=== PATIENT | female | born 1940 | race Caucasian/White ===

== ENCOUNTER 2017-07-03 12:19 | Inpatient (IN) | payer OTHER ==
--- NOTE | 2017-07-03 13:29 | PDOC ---
History of Present Illness - General Chief Complaint: Shortness of Breath Stated Complaint: CHEST PAIN, SOB (PCP SENT) Time Seen by Provider: 07/03/17 13:10 History Source: Patient Exam Limitations: No Limitations - History of Present Illness Initial Comments: This is a 76 YOF with h/o asthma, COPD (on albuterol/Qvar/Stiolto/Breo, admitted twice with last on 03/25/17, never to ICU, never intubated, last steroids 03/25/17 for 2 weeks, triggered by chemicals), CAD (MIx2 with CABG), AICD indwelling (interrogated 04/2017), AVR, mitral valve replacement ( mechanical, on coumadin with last INR 2.5), HTN, HLD, and anxiety who p/w 3 days worsening SOB,wheezing, and dyspnea on exertion similar to her prior asthma /COPD exacerbation in the setting of recent cough (with large amt phlegm) and URI symptoms. She has been using her albuterol inhaler 3x/day when normally she never uses it. She was seen by her PCP (Dr. Mary Prater) this morning and instructed to come to the ED. She denies any fever, chills, nausea, vomiting, chest pain, abdominal pain, leg swelling, orthopnea, or other symptoms. She denies h/o blood clots. She is seen by Pio Galvan and Minh Neely with very recent followup. Past History - Past Medical History Allergies/Adverse Reactions: Allergies Allergy/AdvReac Type Severity Reaction Status Date / Time No Known Allergies Allergy Verified 07/03/17 12:26 Home Medications: Ambulatory Orders Omeprazole [Prilosec (RX)] 20 mg PO DAILY 11/14/12 Losartan Potassium [Cozaar -] 25 mg PO DAILY #0 tablet 11/19/12 Mirtazapine [Remeron -] 15 mg PO HS #0 tablet 11/19/12 LORazepam [Ativan] 0.5 mg PO BID PRN 06/03/15 Venlafaxine HCl [Effexor -] 75 mg PO DAILY 06/03/15 Warfarin Na [Coumadin -] 1 mg PO DAILY 06/03/15 Atorvastatin Ca [Lipitor] 20 mg PO HS #30 tablet 08/18/15 Beclomethasone Dipropionate [Qvar] 8.7 gm IH DAILY 03/25/17 Furosemide 20 mg PO DAILY 03/25/17 Montelukast Na [Singulair -] 10 mg PO HS 03/25/17 Tiotropium Br/Olodaterol HCl [Stiolto Respimat Inhal [place]] 2.5 mcg IH DAILY Cefuroxime Axetil [Ceftin -] 500 mg PO BID #4 tablet 03/29/17 Prednisone See Taper PO DAILY #20 tablet 03/29/17 Asthma: No Cancer: No Cardiac Disorders: Yes (2 NE, TRIPPLE BYPASS, a fib, DOUBLE VALVE REPLACEMENT) CVA: No COPD: Yes CHF: Yes Dementia: No Diabetes: No GI Disorders: No Disorders: No HTN: Yes Hypercholesterolemia: Yes Liver Disease: No Psychiatric Problems: Yes (anxiety) Seizures: No Thyroid Disease: No - Surgical History Cardiac Surgery: Yes (bypass) - Suicide/Smoking/Psychosocial Hx Smoking Status: No Smoking History: Never smoked Have you smoked in the past 12 months: No Number of Cigarettes Smoked Daily: 0 Information on smoking cessation initiated: No Hx Alcohol Use: No Drug/Substance Use Hx: No Substance Use Type: None Hx Substance Use Treatment: No Review of Systems - Review of Systems Able to Perform ROS?: Yes Constitutional: No: Chills, Fever, Unexplained wgt Loss HEENTM: Yes: Nose Congestion. No: Throat Pain Respiratory: Yes: Cough, Shortness of Breath, Wheezing, Productive cough. No: Orthopnea, Stridor Cardiac (ROS): No: Chest Pain, Palpitations ABD/GI: No: Constipated, Diarrhea, Nausea, Vomiting : No: Burning, Dysuria Musculoskeletal: No: Back Pain, Neck Pain Integumentary: No: Bruising, Rash Neurological: No: Headache, Numbness, Tingling, Weakness, Dizziness Endocrine: No: Unexplained Weight Gain, Unexplained Weight Loss *Physical Exam - Vital Signs Last Vital Signs Temp Pulse Resp BP Pulse Ox 98.4 F 68 19 109/47 94 L 07/03/17 12:24 07/03/17 12:24 07/03/17 12:24 07/03/17 12:24 07/03/17 12:24 - Physical Exam General Appearance: Yes: Nourished, Appropriately Dressed, Mild Distress, Other (pleasant elderly female speaking in full sentences but stopping about every 3rd word to inhale, accompanied at bedside by son who aids in providing medical history) HEENT: positive: EOMI, Normal Voice, Hearing Grossly Normal. negative: Scleral Icterus (R), Scleral Icterus (L), Nasal Congestion Neck: positive: Trachea midline, Supple. negative: Tender, Rigid Respiratory/Chest: positive: Lungs Clear, Normal Breath Sounds, Rapid RR, Rhonchi, Wheezing, Other (AICD in place LUCW with well-healed scar). negative: Crackles, Stridor Cardiovascular: positive: Regular Rhythm, Regular Rate, S1, S2, Systolic Murmur. negative: Edema, JVD Gastrointestinal/Abdominal: positive: Normal Bowel Sounds, Soft. negative: Tender, Organomegaly, Pulsatile Mass, Guarding Musculoskeletal: positive: Normal Inspection. negative: Decreased Range of Motion, Vertebral Tenderness Extremity: positive: Normal Capillary Refill, Normal Inspection, Normal Range of Motion. negative: Tender, Cyanosis Integumentary: positive: Normal Color, Dry, Warm. negative: Erythema, Rash, Bruising Neurologic: positive: gas treater II-XII NML intact, Fully Oriented, Alert, Normal Mood/ Affect, Normal Response, Motor Strength 5/5 ED Treatment Course - LABORATORY CBC & Chemistry Diagram: 07/03/17 14:35 07/03/17 14:35 Medical Decision Making - Medical Decision Making 76 YOF with h/o COPD and asthma who p/w SOB and wheezing in setting of recent URI. Sent by PCP for evaluation and tx. On exam PO2 is 94% on RA, tachypneic, diffuse wheezes, crackles L>R, no edema. Ordered is CBCD CMP Mg Cardiac panel BNP Coags UA Cx CXR EKG. 07/03/17 15:52 CXR results with congestive changes and LLL opacity. Ceftriaxone and Azithromycin ordered s/p blood cultures. Microblog sent to [facility] for admission (Mary Prater admits to hospitalist). *DC/Admit/Observation/Transfer Diagnosis at time of Disposition: COPD exacerbation Pneumonia Qualifiers: Pneumonia type: due to unspecified organism Laterality: left Lung location: unspecified part of lung Qualified Code(s): J18.9 - Pneumonia, unspecified organism Asthma exacerbation Qualifiers: Asthma severity: unspecified severity Asthma persistence: unspecified Qualified Code(s): J45.901 - Unspecified asthma with (acute) exacerbation - Discharge Dispostion Condition at time of disposition: Guarded Admit: Yes - Referrals - Patient Instructions - Post Discharge Activity
[2017-07-03] MEDS ORDERED: methylPREDNISolone NA SUCC 125 MG/2 ML VIAL IVPB ONE (13:39)
[2017-07-03] MEDS ORDERED: ALBUTEROL SO4 2.5/IPRATROPIUM 0.5 INH SOL 3 ML VIAL.NEB. NEB ONE ×3 (13:39→14:36)
[2017-07-03] MEDS ORDERED: methylPREDNISolone NA SUCC 125 MG/2 ML VIAL ONE (14:18)
[2017-07-03 14:44] LABS: VENOUS PC02 60.1 mmHg (38-52); VENOUS PH 7.34 (7.32-7.42); VENOUS PO2 23.9 mmHg (28-48)
[2017-07-03 14:52] LABS: BASO % 0.7 % (0-2.0); EOS % 2.8 % (0-4.5); HEMATOCRIT 35.5 % (32.4-45.2); LYMPH % 12.5 % (8-40); MCH 24.7 pg (25.7-33.7); MCHC 31.1 g/dl (32.0-36.0); MEAN CELL VOLUME 79.4 fl (80-96); MEAN PLT VOLUME 7.8 fl (7.5-11.1); MONO % 9.2 % (3.8-10.2); NEUT % 74.8 % (42.8-82.8); PLATELET COUNT 279 K/MM3 (134-434); RBC 4.47 M/mm3 (3.60-5.2); RDW 18.2 % (11.6-15.6); WHITE BLOOD COUNT 11.9 K/mm3 (4.0-10.0)
[2017-07-03 15:08] LABS: INR 2.97 (0.82-1.09); PROTHROMBIN TIME (PATIENT) 33.6 SEC (9.98-11.88)
[2017-07-03 15:13] LABS: ALBUMIN 3.5 g/dl (3.4-5.0); ANION GAP 5 (8-16); BLOOD UREA NITROGEN 15 mg/dL (7-18); CALCIUM 8.2 mg/dL (8.5-10.1); CHLORIDE 103 mmol/L (98-107); CO2 32 mmol/L (21-32); CREATININE 0.7 mg/dL (0.55-1.02); GLUCOSE,RANDOM 93 mg/dL (74-106); SGPT/ALT 20 U/L (12-78); SODIUM 140 mmol/L (136-145)
[2017-07-03 15:14] LABS: ALK PHOS 82 U/L (45-117); TOT PROT 6.8 g/dl (6.4-8.2)
[2017-07-03 15:24] LABS: SGOT/AST 25 U/L (15-37)
[2017-07-03] MEDS ORDERED: AZITHROMYCIN IVPB 500 MG in DEXTROSE 5%-WATER - 250 ML IVPB ONE (15:28)
--- NOTE | 2017-07-03 15:46 | EKG ---
Test Reason : Blood Pressure : / mmHG Vent. Rate : 067 BPM Atrial Rate : 067 BPM P-R Int : 152 ms QRS Dur : 082 ms QT Int : 410 ms P-R-T Axes : 046 034 065 degrees QTc Int : 433 ms NORMAL SINUS RHYTHM CANNOT RULE OUT INFERIOR INFARCT , AGE UNDETERMINED ANTERIOR INFARCT , AGE UNDETERMINED ABNORMAL ECG WHEN COMPARED WITH ECG OF 25-MAR-2017 10:55, VENT. RATE HAS DECREASED BY 51 BPM QUESTIONABLE CHANGE IN QRS DURATION ANTERIOR INFARCT IS NOW PRESENT MINIMAL CRITERIA FOR INFERIOR INFARCT ARE NOW PRESENT Confirmed by STEVEN DEL TORO, TAYLA ([id number]) on 07/03/2017 3:46:35 PM Referred By: Confirmed By:TAYLA HARRIS MD
--- NOTE | 2017-07-03 16:25 | PDOC ---
Attending Attestation - Resident Resident Name: Dilma Tello - ED Attending Attestation I have performed the following: I have examined & evaluated the patient, The case was reviewed & discussed with the resident, I agree w/resident's findings & plan, Exceptions are as noted - HPI HPI: 07/03/17 16:23 The patient is a 76 y.o. female with a significant past medical history of CHF ( BNP 589 in 04/2016), COPD (not on home O2, albuterol/breo,Qvar,stiolto inhalants ), HTN, CAD, [place] (s/p bypass, mitral and aortic valve replacement x2 and multiple stents), taking coumadin (INR 2.5 within 1 week of today, who presents to the emergency department with complaint of shortness of breath worse with exertion, wheezing, and productive cough for about 3 days. She has been using her albuterol 3 times a day and states she does not use her albuterol on a regular day. The patient denies chest pain, headache and dizziness. The patient denies fever, chills, nausea, vomit, diarrhea and constipation. The patient denies dysuria, frequency, urgency and hematuria. Allergies: NKDA Surgical: CABG, valve replacement; stent placement Social: denies cigarettes (significant smoke exposure in the home), denies alcohol, denies recreational drugs PMD: Dr. Viri Prater Pulm: Dr. Neely " - Physicial Exam PE: 07/03/17 16:23 """GENERAL: Awake, alert, and fully oriented, in no acute distress HEAD: No signs of trauma EYES: PERRLA, EOMI, sclera anicteric, conjunctiva clear ENT: Auricles normal inspection, hearing grossly normal, nares patent, oropharynx clear without exudates. Moist mucosa NECK: Nontender, no stepoffs, Normal ROM, supple, no lymphadenopathy, JVD, or masses LUNGS: (+) mild conversational dyspnea, crackles and wheezing bilaterally with increased crackles on the right. Breath sounds equal, HEART: Regular rate and rhythm, normal S1 and S2, no rubs or gallops ABDOMEN: Soft, nontender, normoactive bowel sounds. No guarding, no rebound. No masses EXTREMITIES: Normal range of motion, no edema. No clubbing or cyanosis. No cords, erythema, or tenderness NEUROLOGICAL: Cranial nerves II through XII intact. 5/5 strength and sensation in all extremities, Normal speech, normal gait SKIN: Warm, Dry, normal turgor, no rashes or lesions noted. """ - Medical Decision Making 07/03/17 16:24 76 F with SOB, found to be mildly hypoxic in ER with wheezing and rhonchi on exam. Concerning for COPD exacerbation, possibly 2/2 PNA or URI. - Labs, trop, BNP - CXR - Nebs, steroids - Ceftriaxone/azithro for CAP coverage
[2017-07-03] MEDS ORDERED: LABETALOL HCL 200 MG TABLET (FP) PO ONE (16:35)
[2017-07-03] MEDS ORDERED: LABETALOL HCL 5 MG/1 ML (100MG/20 ML VIAL) IVPUSH ONE (16:36)
[2017-07-03] MEDS ORDERED: AZITHROMYCIN IVPB 250 ML IVPB ONE (16:47)
[2017-07-03] MEDS ORDERED: CEFTRIAXONE 1 GM/50 ML BAG ONE (16:47)
[2017-07-03] MEDS: CEFTRIAXONE 1 GM in DEXTROSE 5%-WATER - 50 ML IVPB ONE ×2 (16:55→17:27)
--- NOTE | 2017-07-03 17:32 | HP ---
Admitting History and Physical - Primary Care Physician PCP: Mary Prater - Admission Chief Complaint: SOB, wheezing History of Present Illness: This is an 76 year old female with a PMHx of COPD/Asthma, HTN, RI s/p triple bypass/double valve placement/stents, CHF, HLD, sent in by her PCP Dr. Prater for worsening sob and wheezing. Pt states her shortness of breath worsened of the last 2 days with increased mucus production. She denies cough, chest pain, abdominal pain, nausea, vomiting fever. She has been intubated in the past for COPD exacerbations per her son. History Source: Patient, Medical Record Limitations to Obtaining History: No Limitations - Past Medical History Cardiovascular: Yes: AFIB, CAD (CABG), CHF, HTN, Hyperlipdemia, RI, Other (MVR, TVR, LV systolic dysfunction, ICD) Pulmonary: Yes: COPD - Past Surgical History Past Surgical History: Yes: AICD, CABG, Valve Replacement (aortic/mitral) - Smoking History Smoking history: Never smoked Have you smoked in the past 12 months: No Aproximately how many cigarettes per day: 0 - Alcohol/Substance Use Hx Alcohol Use: No - Social History Usual Living Arrangement: Yes: With Child ADL: Independent History of Recent Travel: No Home Medications - Allergies Allergies/Adverse Reactions: Allergies Allergy/AdvReac Type Severity Reaction Status Date / Time No Known Allergies Allergy Verified 07/03/17 12:26 - Home Medications Home Medications: Ambulatory Orders Omeprazole [Prilosec (RX)] 20 mg PO DAILY 11/14/12 Losartan Potassium [Cozaar -] 25 mg PO DAILY #0 tablet 11/19/12 Mirtazapine [Remeron -] 15 mg PO HS #0 tablet 11/19/12 LORazepam [Ativan] 0.5 mg PO BID PRN 06/03/15 Venlafaxine HCl [Effexor -] 75 mg PO DAILY 06/03/15 Warfarin Na [Coumadin -] 1 mg PO DAILY 06/03/15 Atorvastatin Ca [Lipitor] 20 mg PO HS #30 tablet 08/18/15 Beclomethasone Dipropionate [Qvar] 8.7 gm IH DAILY 03/25/17 Furosemide 20 mg PO DAILY 03/25/17 Montelukast Na [Singulair -] 10 mg PO HS 03/25/17 Tiotropium Br/Olodaterol HCl [Stiolto Respimat Inhal [place]] 2.5 mcg IH DAILY Cefuroxime Axetil [Ceftin -] 500 mg PO BID #4 tablet 03/29/17 Prednisone See Taper PO DAILY #20 tablet 03/29/17 Review of Systems - Review of Systems Constitutional: reports: No Symptoms Eyes: reports: No Symptoms HENT: reports: No Symptoms Neck: reports: No Symptoms Cardiovascular: reports: Shortness of Breath Respiratory: reports: SOB, SOB on Exertion, Wheezing Gastrointestinal: reports: No Symptoms Genitourinary: reports: No Symptoms Musculoskeletal: reports: No Symptoms Integumentary: reports: No Symptoms Neurological: reports: No Symptoms Endocrine: reports: No Symptoms Hematology/Lymphatic: reports: No Symptoms Psychiatric: reports: No Symptoms Physical Examination Vital Signs: Vital Signs Temperature 98.4 F 07/03/17 12:24 Pulse Rate 68 07/03/17 12:24 Respiratory Rate 19 07/03/17 12:24 Blood Pressure 109/47 07/03/17 12:24 O2 Sat by Pulse Oximetry (%) 94 L 07/03/17 12:24 Constitutional: Yes: Calm Eyes: Yes: Conjunctiva Clear HENT: Yes: Atraumatic Neck: Yes: Supple Cardiovascular: Yes: Regular Rate and Rhythm, Murmur, S1, S2 Respiratory: Yes: Accessory Muscle Use, Diminished, Rhonchi, Wheezes Gastrointestinal: Yes: Normal Bowel Sounds, Soft Renal/: Yes: WNL Musculoskeletal: Yes: WNL Extremities: Yes: WNL Edema: Yes Integumentary: Yes: WNL Neurological: Yes: Alert, Oriented, Cran Nerves II-XII Intact Psychiatric: Yes: Alert, Oriented Labs: CBC, BMP 07/03/17 14:35 07/03/17 14:35 Imaging - Results Chest X-ray: Report Reviewed (L base ? consolidation) EKG: Report Reviewed (sinus rhythm, anterior infarct now present) Problem List - Problems (1) Asthma exacerbation Code(s): J45.901 - UNSPECIFIED ASTHMA WITH (ACUTE) EXACERBATION Qualifiers: Asthma severity: unspecified severity Asthma persistence: unspecified Qualified Code(s): J45.901 - Unspecified asthma with (acute) exacerbation (2) COPD exacerbation Code(s): J44.1 - CHRONIC OBSTRUCTIVE PULMONARY DISEASE W (ACUTE) EXACERBATION (3) Pneumonia Code(s): J18.9 - PNEUMONIA, UNSPECIFIED ORGANISM Qualifiers: Pneumonia type: due to unspecified organism Laterality: left Lung location: unspecified part of lung Qualified Code(s): J18.9 - Pneumonia, unspecified organism (4) Acute respiratory distress Code(s): R06.03 - ACUTE RESPIRATORY DISTRESS (5) History of CHF (congestive heart failure) Code(s): Z86.79 - PERSONAL HISTORY OF OTHER DISEASES OF THE CIRCULATORY SYSTEM (6) History of RI (myocardial infarction) Code(s): I25.2 - OLD MYOCARDIAL INFARCTION (7) History of hypercholesterolemia Code(s): Z86.39 - PERSONAL HISTORY OF ENDO, NUTRITIONAL AND METABOLIC DISEASE (8) History of hypertension Code(s): Z86.79 - PERSONAL HISTORY OF OTHER DISEASES OF THE CIRCULATORY SYSTEM (9) S/P CABG (coronary artery bypass graft) Code(s): Z95.1 - PRESENCE OF AORTOCORONARY BYPASS GRAFT (10) S/P MVR (mitral valve repair) Code(s): Z98.89 - OTHER SPECIFIED POSTPROCEDURAL STATES * DO NOT USE * (11) S/P TVR (tricuspid valve repair) Code(s): Z98.89 - OTHER SPECIFIED POSTPROCEDURAL STATES * DO NOT USE * (12) Single implantable cardioverter-defibrillator (ICD) in situ Code(s): Z95.810 - PRESENCE OF AUTOMATIC (IMPLANTABLE) CARDIAC DEFIBRILLATOR (13) Systolic dysfunction without heart failure Code(s): I51.9 - HEART DISEASE, UNSPECIFIED Assessment/Plan Assessment: 76 year old female admitted with COPD exacerbation Plan: 1. Acute on chronic COPD exacerbation, +/- LLL PNA - Continue medrol 40mg q8 - Duonebs - Continue ceftriaxone, azithro - Singular - Qvar - Pulmonary consulted 2. LV systolic dysfunction with history of CHF - Cozaar 25mg daily - Lasix 20mg daily 3. CAD s/p RI s/p CABG, ICD s/p VF arrest - Cardiology consulted EKG ?new anterior infarct - Initial Trop negative, denies cP 4. PAF - Coumadin 1mg - INR daily 5. HTN - Cozaar 6. HLD - Lipitor 7. DVT - on AC Visit type - Emergency Visit Emergency Visit: Yes Care time: The patient presented to the Emergency Department on the above date and was hospitalized for further evaluation of their emergent condition. - New Patient This patient is new to me today: Yes Date on this admission: 07/03/17 - Critical Care Critical Care patient: No
[2017-07-03] MEDS ORDERED: LORazepam 1 MG TABLET PO PRN (17:46)
[2017-07-03] MEDS ORDERED: ACETAMINOPHEN 325 MG TABLET (FP) PO PRN (17:47)
[2017-07-03] MEDS ORDERED: CEFTRIAXONE 1 G/50 ML PREMIX 50 ML IVPB ONE (18:15)
--- NOTE | 2017-07-03 18:45 | PN ---
Progress Note (short form) - Note Progress Note: PULMONARY CONSULTATION DICTATED IMP ACUTE HYPERCAPNEIC RESPIRATORY FAILURE COPD/ASTHMA EXACERBATION PNEUMONIA ASHD S/P CABG S/P AICD S/P AVR/MR AFIB PLAN INHALED BRONCHODILATORS O2 SOLUMEDROL ABX F/U CHEST X-RAY CULTURES DR HUGGINS Problem List - Problems (1) Asthma exacerbation Code(s): J45.901 - UNSPECIFIED ASTHMA WITH (ACUTE) EXACERBATION Qualifiers: Asthma severity: unspecified severity Asthma persistence: unspecified Qualified Code(s): J45.901 - Unspecified asthma with (acute) exacerbation (2) COPD exacerbation Code(s): J44.1 - CHRONIC OBSTRUCTIVE PULMONARY DISEASE W (ACUTE) EXACERBATION (3) Pneumonia Code(s): J18.9 - PNEUMONIA, UNSPECIFIED ORGANISM Qualifiers: Pneumonia type: due to unspecified organism Laterality: left Lung location: unspecified part of lung Qualified Code(s): J18.9 - Pneumonia, unspecified organism (4) Acute respiratory distress Code(s): R06.03 - ACUTE RESPIRATORY DISTRESS (5) History of CHF (congestive heart failure) Code(s): Z86.79 - PERSONAL HISTORY OF OTHER DISEASES OF THE CIRCULATORY SYSTEM (6) History of [place] (myocardial infarction) Code(s): I25.2 - OLD MYOCARDIAL INFARCTION (7) History of coronary artery disease Code(s): Z86.79 - PERSONAL HISTORY OF OTHER DISEASES OF THE CIRCULATORY SYSTEM (8) History of hypertension Code(s): Z86.79 - PERSONAL HISTORY OF OTHER DISEASES OF THE CIRCULATORY SYSTEM (9) S/P CABG (coronary artery bypass graft) Code(s): Z95.1 - PRESENCE OF AORTOCORONARY BYPASS GRAFT (10) S/P MVR (mitral valve repair) Code(s): Z98.89 - OTHER SPECIFIED POSTPROCEDURAL STATES * DO NOT USE * (11) Single implantable cardioverter-defibrillator (ICD) in situ Code(s): Z95.810 - PRESENCE OF AUTOMATIC (IMPLANTABLE) CARDIAC DEFIBRILLATOR (12) Acute hypercapnic respiratory failure Code(s): J96.02 - ACUTE RESPIRATORY FAILURE WITH HYPERCAPNIA
--- NOTE | 2017-07-03 21:43 | CONS ---
DATE OF CONSULTATION: 07/03/2017 REFERRING PHYSICIAN: Lucero Hammer NP The patient is a 76-year-old white female well-known to me from previous hospitalization and follow up with a past medical history of COPD/asthma, nonsmoker, hypertension, ASHD status post coronary bypass, status post double valve replacement, status post cardiac arrest intraoperatively, congestive heart failure, hyperlipidemia. Admitted to [facility] with complaints of increasing shortness of breath. The patient states that she had URI symptoms about a week ago and started developing a sore throat, shortness of breath, and wheezing. She took her inhalers without any improvement. She denies any fevers, chills, nausea, vomiting, or diaphoresis. Denies hemoptysis. The patient's symptoms worsened today, at which time she presented to the emergency room. In the ER, she was treated with inhaled bronchodilators and steroids with good clinical response. As stated before, she is a nonsmoker. There is no history of occupational exposure to chemicals or fumes. She has been intubated in the past secondary cardiac arrest during open heart surgery. PAST MEDICAL HISTORY: Atrial fibrillation, ASHD status post CABG, status post valve replacement, hypertension, CHF, hyperlipidemia, [place], asthma, COPD, status post ICD. REVIEW OF SYSTEMS: Positive dyspnea, positive cough, positive bronchospasm. No fever, no chills, no hemoptysis. No chest pain or palpitations. MEDICATIONS: Prior to admission include Prilosec, Cozaar, Remeron, Ativan, Effexor, Coumadin, Lipitor, QVAR, Singulair, Lasix, Ceftin, and Prednisone. On physical examination, current medications include QVAR, Stioloto, Solu-Medrol, Tylenol, Cozaar, Zithromax, Coumadin, Remeron, Effexor, Ativan, ceftriaxone, Lipitor, Singulair, and Lasix. PHYSICAL EXAMINATION: General: The patient is an elderly, white female, well-developed, awake, alert , in no acute distress. Vital Signs: She is currently afebrile. Blood pressure 109/47, respiratory rate is 19, O2 saturation is 94%. HEENT: Head is normocephalic, atraumatic. Neck: Supple. Heart: Irregularly irregular. Normal S1, S2. Chest: Scattered bilateral wheezes. Abdomen: Soft. Bowel sounds are positive. Extremities: No cyanosis or edema. LABORATORIES: WBC is 11.9, hemoglobin 11, hematocrit 35.5 with a platelet count of 279,000. INR is 2.97. Venous blood gas: pH of 7.34, PCO2 is 60, PO2 is 23. Chemistries: BUN 15, creatinine 0.7. Chest x-ray reveals questionable density in the left base. IMPRESSION: 1. Acute hypercapnic respiratory failure. 2. Chronic obstructive pulmonary disease/asthma exacerbation. 3. Pneumonia. 4. Atherosclerotic heart disease status post coronary artery bypass graft, status post mitral valve and aortic valve replacements. 5. Congestive heart failure. 6. Atrial fibrillation. PLAN: Antibiotic therapy. Supplemental O2. Steroids. Inhaled bronchodilators. IV Medrol. Obtain follow up with chest x-ray. Obtain cultures. OPAL HUGGINS M.D. [id number] MTDD
[2017-07-03] MEDS: MONTELUKAST NA 10 MG TABLET PO SCH (22:13)
[2017-07-03] MEDS: ATORVASTATIN CA 20 MG TABLET (FP) PO SCH (22:13)
[2017-07-03] MEDS: methylPREDNISolone NA SUCC 40 MG/1 ML VIAL IVPUSH SCH (22:14)
[2017-07-03] MEDS: MIRTAZAPINE 15 MG TABLET (FP) PO SCH (22:15)
[2017-07-03 23:50] VITALS: BMI 26.4
[2017-07-04] MEDS: methylPREDNISolone NA SUCC 40 MG/1 ML VIAL IVPUSH SCH ×3 (01:01→17:25)
[2017-07-04 01:52] LABS: ARTERIAL BLD GAS O2 SATURATION 93.8 % (90-98.9); ARTERIAL BLOOD GAS BASE EXCESS 3.8 meq/l (-2-2); ARTERIAL BLOOD GAS PCO2 48.5 mmHg (35-45); ARTERIAL BLOOD GAS PO2 70.7 mmHg (70-100); ARTERIAL BLOOD GAS pH 7.39 (7.35-7.45)
[2017-07-04 01:53] LABS: ALLENS TEST POSITIVE
[2017-07-04 07:37] LABS: HEMATOCRIT 31.6 % (32.4-45.2); HEMOGLOBIN 9.7 GM/dL (10.7-15.3); LYMPH % 7.7 % (8-40); MCH 24.6 pg (25.7-33.7); MCHC 30.8 g/dl (32.0-36.0); MEAN CELL VOLUME 79.8 fl (80-96); MEAN PLT VOLUME 7.8 fl (7.5-11.1); MONO % 1.2 % (3.8-10.2); NEUT % 91.1 % (42.8-82.8); PLATELET COUNT 264 K/MM3 (134-434); RBC 3.95 M/mm3 (3.60-5.2); RDW 17.3 % (11.6-15.6); WHITE BLOOD COUNT 11.4 K/mm3 (4.0-10.0)
[2017-07-04 07:47] LABS: INR 2.94 (0.82-1.09); PROTHROMBIN TIME (PATIENT) 33.2 SEC (9.98-11.88)
[2017-07-04 08:37] LABS: ANION GAP 8 (8-16); BILIRUBIN,TOTAL 0.3 mg/dL (0.2-1.0); BLOOD UREA NITROGEN 23 mg/dL (7-18); CALCIUM 7.9 mg/dL (8.5-10.1); CHLORIDE 103 mmol/L (98-107); CO2 31 mmol/L (21-32); CREATININE 0.7 mg/dL (0.55-1.02); GLUCOSE,RANDOM 140 mg/dL (74-106); MAGNESIUM 1.9 mg/dL (1.8-2.4); PHOSPHOROUS 2.7 mg/dL (2.5-4.9); POTASSIUM 4.2 mmol/L (3.5-5.1); SGOT/AST 14 U/L (15-37); SGPT/ALT 16 U/L (12-78); SODIUM 142 mmol/L (136-145); TOT PROT 6.3 g/dl (6.4-8.2)
[2017-07-04 08:38] LABS: ALK PHOS 71 U/L (45-117)
[2017-07-04] MEDS: FUROSEMIDE 20 MG TABLET (FP) PO SCH (09:30)
[2017-07-04] MEDS: LOSARTAN POTASSIUM 25 MG TABLET PO SCH (09:31)
[2017-07-04] MEDS: CEFTRIAXONE 1 G/50 ML PREMIX 50 ML IVPB SCH (09:31)
[2017-07-04] MEDS: AZITHROMYCIN IVPB 250 MG in DEXTROSE 5%-WATER - 250 ML IVPB SCH (09:35)
[2017-07-04] MEDS ORDERED: PATIENT'S OWN MEDICATION (NON-FORMULARY) (Tiotropium Br/Olodaterol Hcl [Stiolto Respimat I IH SCH (10:00)
[2017-07-04] MEDS ORDERED: PATIENT'S OWN MEDICATION (NON-FORMULARY) (Beclomethasone Dipropionate [Qvar] 8.7 GM) IH SCH (10:00)
[2017-07-04] MEDS ORDERED: ALBUTEROL SO4 2.5/IPRATROPIUM 0.5 INH SOL 3 ML VIAL.NEB. NEB ONE (10:11)
[2017-07-04] MEDS: PANTOPRAZOLE 40 MG TABLET (FP) PO SCH (10:46)
--- NOTE | 2017-07-04 10:52 | PN ---
Progress Note (short form) - Note Progress Note: PULMONARY Feeling better today. +cough with yellow sputum. Wheezing less. No fevers or chills. Last Vital Signs Temp Pulse Resp BP Pulse Ox 97.9 F 97 H 20 108/54 92 L 07/04/17 05:00 07/04/17 05:00 07/04/17 05:00 07/04/17 05:00 07/03/17 20:30 Gen: mildly tachypneic at rest Heart: RRR Lung: scattered rhonchi, wheezes Abd: soft, nontender Ext: no edema CBC, BMP 07/04/17 06:00 07/04/17 06:00 Active Medications Acetaminophen (Tylenol -) 650 mg PO Q4H PRN PRN Reason: PAIN LEVEL 1-5 Albuterol/Ipratropium (Duoneb -) 1 amp NEB RQID [facility] Atorvastatin Calcium (Lipitor -) 20 mg PO [facility] Last Admin: 07/03/17 22:13 Dose: 20 mg Furosemide (Lasix -) 20 mg PO DAILY [facility] Last Admin: 07/04/17 09:30 Dose: 20 mg Azithromycin 250 mg/ Dextrose 250 mls @ 250 mls/hr IVPB DAILY [facility] Last Admin: 07/04/17 09:35 Dose: 250 mls/hr CEFTRIAXONE 1 G/50 ML PREMIX (Ceftriaxone 1 Gm-D5w Bag) 50 mls @ 100 mls/hr IVPB DAILY [facility] Last Admin: 07/04/17 09:31 Dose: 100 mls/hr Lorazepam (Ativan -) 0.5 mg PO BID PRN PRN Reason: ANXIETY Losartan Potassium (Cozaar -) 25 mg PO DAILY [facility] Last Admin: 07/04/17 09:31 Dose: 25 mg Methylprednisolone Sodium Succinate (Solu-Medrol -) 40 mg IVPUSH Q8H-IV [facility] Last Admin: 07/04/17 09:31 Dose: 40 mg Mirtazapine (Remeron -) 15 mg PO [facility] Last Admin: 07/03/17 22:15 Dose: Not Given Montelukast Sodium (Singulair -) 10 mg PO [facility] Last Admin: 07/03/17 22:13 Dose: 10 mg Non-Formulary Medication (Beclomethasone Dipropionate [Qvar]) 8.7 gm IH DAILY [facility] Non-Formulary Medication (Tiotropium Br/Olodaterol Hcl [Stiolto Respimat Inhal [place]]) 2.5 mcg IH DAILY [facility] Pantoprazole Sodium (Protonix -) 40 mg PO DAILY@0730 [facility] Venlafaxine HCl (Effexor -) 75 mg PO DAILY [facility] Warfarin Sodium (Coumadin -) 1 mg PO DAILY@1800 [facility] A/P Acute on Chronic Hypercapneic Respiratory Failure Acute COPD Exacerbation Pneumonia CAD s/p CABG Atrial Fibrillation s/p AVR/MVR - continue medrol at current dose - if continues to improve, can change steroids to PO prednisone 40mg daily in AM and taper as outpt - inhaled bronchodilators - O2 to keep SpO2 >90% - continue antibiotics - f/u cultures - rate control - continue anticoagulation
[2017-07-04] MEDS: ALBUTEROL SO4 2.5/IPRATROPIUM 0.5 INH SOL 3 ML VIAL.NEB. NEB SCH ×3 (11:00→20:28)
[2017-07-04] MEDS: VENLAFAXINE HCL 75 MG TABLET PO SCH (13:24)
--- NOTE | 2017-07-04 14:16 | CON.CARD ---
Consult Consult Specialty:: Cardiology Referred by:: Hospitalist Reason for Consultation:: Cardiac evaluation - History of Present Illness History of Present Illness: Patient is a 76 year old female with underlying history of CAD, MO, s/p CABG, MVP with significant MR s/p MVR and TVR s/p VF arrest post ICD, PAF ( [id number] score of 6) on anticoagulation, LV systolic dysfunction, hypertension/HCVD, hypercholesterolemia and reactive airway disease. She presents with shortness of breath, wheezing and productive cough. She denies chest pain or palpitations. She denies paroxysmal nocturnal dyspnea or orthopnea. She denies fever or chills. She denies headache or lightheadedness. She denies nausea, vomiting, diarrhea or abdominal pain. - History Source History Provided By: Patient, Medical Record Limitations to Obtaining History: No Limitations - Past Medical History Cardio/Vascular: Yes: AFIB, CAD (CABG), CHF, HTN, Hyperlipdemia, MO, Other (MVR , TVR, LV systolic dysfunction, ICD) Pulmonary: Yes: COPD ...: No - Past Surgical History Past Surgical History: Yes: AICD, CABG, Valve Replacement (aortic/mitral) - Alcohol/Substance Use Hx Alcohol Use: No - Smoking History Smoking history: Never smoked Have you smoked in the past 12 months: No Aproximately how many cigarettes per day: 0 - Social History Usual Living Arrangement: Alone ADL: Independent History of Recent Travel: No Home Medications - Allergies Allergies/Adverse Reactions: Allergies Allergy/AdvReac Type Severity Reaction Status Date / Time No Known Allergies Allergy Verified 07/03/17 12:26 - Home Medications Home Medications: Ambulatory Orders Omeprazole [Prilosec (RX)] 20 mg PO DAILY 11/14/12 Losartan Potassium [Cozaar -] 25 mg PO DAILY #0 tablet 11/19/12 Mirtazapine [Remeron -] 15 mg PO HS #0 tablet 11/19/12 LORazepam [Ativan] 0.5 mg PO BID PRN 06/03/15 Venlafaxine HCl [Effexor -] 75 mg PO DAILY 06/03/15 Warfarin Na [Coumadin -] 1 mg PO DAILY 06/03/15 Atorvastatin Ca [Lipitor] 20 mg PO HS #30 tablet 08/18/15 Beclomethasone Dipropionate [Qvar] 8.7 gm IH DAILY 03/25/17 Furosemide 20 mg PO DAILY 03/25/17 Montelukast Na [Singulair -] 10 mg PO HS 03/25/17 Tiotropium Br/Olodaterol HCl [Stiolto Respimat Inhal [place]] 2.5 mcg IH DAILY Review of Systems - Review of Systems Constitutional: denies: Chills, Fever Cardiovascular: reports: Shortness of Breath. denies: Chest Pain, Palpitations Respiratory: reports: Cough, SOB, SOB on Exertion. denies: Hemoptysis, Orthopnea, PND Gastrointestinal: denies: Abdominal Pain, Constipation, Diarrhea, Melena, Nausea , Rectal Bleeding, Vomiting Genitourinary: denies: Dysuria, Hematuria Musculoskeletal: denies: Joint Pain Neurological: reports: Weakness. denies: Dizziness, Headache, Seizure, Syncope Vital Signs: Vital Signs Temperature 98.0 F 07/04/17 09:00 Pulse Rate 86 07/04/17 09:00 Respiratory Rate 19 07/04/17 09:00 Blood Pressure 116/55 07/04/17 09:00 O2 Sat by Pulse Oximetry (%) 92 L 07/04/17 09:00 Constitutional: Yes: Well Nourished Eyes: Yes: Conjunctiva Clear, PERRL HENT: Yes: Atraumatic Neck: Yes: Supple Respiratory: Yes: Diminished Gastrointestinal: Yes: Normal Bowel Sounds, Soft. No: Tenderness Cardiovascular: Yes: Regular Rate and Rhythm JVD: No Carotid Bruit: No PMI: Non-Displaced Heart Sounds: Yes: S1, S2 Murmur: Yes: Systolic Murmur, Grade 2 Edema: No - Other Data Labs, Other Data: CBC, BMP 07/04/17 06:00 07/04/17 06:00 INR, PTT INR 2.94 (0.82-1.09) H 07/04/17 06:00 Troponin, BNP 07/03/17 14:35 Troponin I < 0.02 Imaging - Results Chest X-ray: Report Reviewed (Atelectasis and small infiltrates) EKG: Report Reviewed (Sinus rhythm with anterior infarct cannot rule out inferior infarct) Problem List - Problems (1) Acute hypercapnic respiratory failure Code(s): J96.02 - ACUTE RESPIRATORY FAILURE WITH HYPERCAPNIA (2) COPD exacerbation Code(s): J44.1 - CHRONIC OBSTRUCTIVE PULMONARY DISEASE W (ACUTE) EXACERBATION (3) Pneumonia Code(s): J18.9 - PNEUMONIA, UNSPECIFIED ORGANISM Qualifiers: Pneumonia type: due to unspecified organism Laterality: left Lung location: unspecified part of lung Qualified Code(s): J18.9 - Pneumonia, unspecified organism (4) CKD (chronic kidney disease) stage 3, GFR 30-59 ml/min Code(s): N18.3 - CHRONIC KIDNEY DISEASE, STAGE 3 (MODERATE) (5) History of [place] (myocardial infarction) Code(s): I25.2 - OLD MYOCARDIAL INFARCTION (6) History of coronary artery disease Code(s): Z86.79 - PERSONAL HISTORY OF OTHER DISEASES OF THE CIRCULATORY SYSTEM (7) History of hypercholesterolemia Code(s): Z86.39 - PERSONAL HISTORY OF ENDO, NUTRITIONAL AND METABOLIC DISEASE (8) History of hypertension Code(s): Z86.79 - PERSONAL HISTORY OF OTHER DISEASES OF THE CIRCULATORY SYSTEM (9) Reactive airway disease Code(s): J45.909 - UNSPECIFIED ASTHMA, UNCOMPLICATED Qualifiers: Asthma severity: mild (10) S/P CABG (coronary artery bypass graft) Code(s): Z95.1 - PRESENCE OF AORTOCORONARY BYPASS GRAFT (11) S/P MVR (mitral valve repair) Code(s): Z98.89 - OTHER SPECIFIED POSTPROCEDURAL STATES * DO NOT USE * (12) S/P TVR (tricuspid valve repair) Code(s): Z98.89 - OTHER SPECIFIED POSTPROCEDURAL STATES * DO NOT USE * (13) Single implantable cardioverter-defibrillator (ICD) in situ Code(s): Z95.810 - PRESENCE OF AUTOMATIC (IMPLANTABLE) CARDIAC DEFIBRILLATOR Assessment/Plan 1. Clinical presentation compatible with acute on chronic hypercapneic respiratory failure 2. Pneumonia 3. COPD exacerbation 4. CAD post CABG, angina pectoris 5. Post MVR and TVR 6. PAF [id number] score of 6 7. HTN/HCVD 8. Hypercholesterolemia 9. LV systolic dysfunction 10. History of VF arrest post ICD PLAN: 1. Continue bronchodilator, steroid taper and O2 2. Empiric antibiotic coverage 3. Continue Losartan 4. Continue Warfarin with INR checks (keep btw 2-3) 5. Continue Lipitor Further plans are to follow Rakan Leonard MD
--- NOTE | 2017-07-04 15:43 | PN ---
Physical Exam: SUBJECTIVE: Patient seen and examined. Appears comfortable, breathing less labored. OBJECTIVE: Vital Signs Period Temp Pulse Resp BP Sys/Pino Pulse Ox Last 24 Hr 97.9 F-98.2 F 69-97 14-20 99-119/42-82 92-98 PE Neuro: alert,awake, cn 2-12intact Pulm: scattered ronchi, anteriorly +nc CV: s1 s2 rrr + systolic murmur Abd: s nt nd + bs Ext: warm, trace le edema Laboratory Results - last 24 hr 07/04/17 07/04/17 07/04/17 01:36 06:00 06:00 WBC 11.4 H RBC 3.95 Hgb 9.7 L D Hct 31.6 L MCV 79.8 L MCH 24.6 L MCHC 30.8 L RDW 17.3 H Plt Count 264 MPV 7.8 Neutrophils % 91.1 H D Lymphocytes % 7.7 L D Monocytes % 1.2 L D Eosinophils % 0.0 D Basophils % 0.0 PT with INR INR Puncture Site Left radial ABG pH 7.39 ABG pCO2 at Pt Temp 48.5 H ABG pO2 at Pt Temp 70.7 D ABG HCO3 28.8 H ABG O2 Sat (Measured) 93.8 ABG O2 Content 12.4 L ABG Base Excess 3.8 H Mars Test Positive O2 Delivery Device Nasal Oxygen Flow Rate 2l PEEP 0.0 Sodium 142 Potassium 4.2 Chloride 103 Carbon Dioxide 31 Anion Gap 8 BUN 23 H Creatinine 0.7 Creat Clearance w eGFR > 60 Random Glucose 140 H Calcium 7.9 L Phosphorus 2.7 Magnesium 1.9 Total Bilirubin 0.3 D AST 14 L ALT 16 Alkaline Phosphatase 71 Total Protein 6.3 L Albumin 3.0 L 07/04/17 06:00 INR 2.94 H Active Medications Generic Name Dose Route Start Last Admin Trade Name Freq PRN Reason Stop Dose Admin Acetaminophen 650 mg 07/03/17 17:47 Tylenol - PO Q4H PRN PAIN LEVEL 1-5 Albuterol/Ipratropium 1 amp 07/04/17 12:00 07/04/17 11:00 Duoneb - NEB 1 amp RQID YUDY Administration Atorvastatin Calcium 20 mg 07/03/17 22:00 07/03/17 22:13 Lipitor - PO 20 mg HS YUDY Administration Furosemide 20 mg 07/04/17 10:00 07/04/17 09:30 Lasix - PO 20 mg DAILY YUDY Administration Azithromycin 250 mg/ Dextrose 250 mls @ 250 mls/hr 07/04/17 10:00 07/04/17 09 :35 IVPB 250 mls/hr DAILY YUDY Administration CEFTRIAXONE 1 G/50 ML PREMIX 50 mls @ 100 mls/hr 07/04/17 10:00 07/04/17 09: 31 Ceftriaxone 1 Gm-D5w Bag IVPB 100 mls/hr DAILY YUDY Administration Lorazepam 0.5 mg 07/03/17 17:46 Ativan - PO BID PRN ANXIETY Losartan Potassium 25 mg 07/04/17 10:00 07/04/17 09:31 Cozaar - PO 25 mg DAILY YUDY Administration Methylprednisolone Sodium Succinate 40 mg 07/03/17 18:00 07/04/17 09:31 Solu-Medrol - IVPUSH 40 mg Q8H-IV YUDY Administration Mirtazapine 15 mg 07/03/17 22:00 07/03/17 22:15 Remeron - PO Not Given HS YUDY Montelukast Sodium 10 mg 07/03/17 22:00 07/03/17 22:13 Singulair - PO 10 mg HS YUDY Administration Non-Formulary Medication 8.7 gm 07/04/17 10:00 Beclomethasone Dipropionate [Qvar] IH DAILY [facility] Non-Formulary Medication 2.5 mcg 07/04/17 10:00 Tiotropium Br/Olodaterol Hcl [Stiolto Respimat Inhal [place]] IH DAILY [facility] Pantoprazole Sodium 40 mg 07/04/17 10:30 07/04/17 10:46 Protonix - PO 40 mg DAILY@0730 YUDY Administration Venlafaxine HCl 75 mg 07/04/17 10:00 Effexor - PO DAILY [facility] Warfarin Sodium 1 mg 07/04/17 18:00 Coumadin - PO DAILY@1800 [facility] Assessment: 76 year old female with a PMHx of COPD/Asthma, HTN, AR s/p triple bypass/double valve placement/stents, CHF, HLD, sent in by her PCP Dr. Prater for worsening sob and wheezing. Plan: 1. Acute on chronic COPD exacerbation, +/- LLL PNA - Continue medrol 40mg q8 - Continue ceftriaxone, azithro - Duonebs - Singular - Qvar - Blood cx pending 2. LV systolic dysfunction with history of CHF - Cozaar 25mg daily - Lasix 20mg daily 3. CAD s/p AR s/p CABG, ICD s/p VF arrest - Cardiology consulted EKG ?new anterior infarct 4. PAF - Coumadin 1mg - INR daily 5. HTN - Cozaar 6. HLD - Lipitor 7. DVT - on AC Dispo: - If improved DC home po steroids Problem List - Problems (1) Asthma exacerbation Code(s): J45.901 - UNSPECIFIED ASTHMA WITH (ACUTE) EXACERBATION Qualifiers: Asthma severity: unspecified severity Asthma persistence: unspecified Qualified Code(s): J45.901 - Unspecified asthma with (acute) exacerbation (2) COPD exacerbation Code(s): J44.1 - CHRONIC OBSTRUCTIVE PULMONARY DISEASE W (ACUTE) EXACERBATION (3) Pneumonia Code(s): J18.9 - PNEUMONIA, UNSPECIFIED ORGANISM Qualifiers: Pneumonia type: due to unspecified organism Laterality: left Lung location: unspecified part of lung Qualified Code(s): J18.9 - Pneumonia, unspecified organism (4) Acute respiratory distress Code(s): R06.03 - ACUTE RESPIRATORY DISTRESS (5) History of CHF (congestive heart failure) Code(s): Z86.79 - PERSONAL HISTORY OF OTHER DISEASES OF THE CIRCULATORY SYSTEM (6) History of AR (myocardial infarction) Code(s): I25.2 - OLD MYOCARDIAL INFARCTION (7) History of hypercholesterolemia Code(s): Z86.39 - PERSONAL HISTORY OF ENDO, NUTRITIONAL AND METABOLIC DISEASE (8) History of hypertension Code(s): Z86.79 - PERSONAL HISTORY OF OTHER DISEASES OF THE CIRCULATORY SYSTEM (9) S/P CABG (coronary artery bypass graft) Code(s): Z95.1 - PRESENCE OF AORTOCORONARY BYPASS GRAFT (10) S/P MVR (mitral valve repair) Code(s): Z98.89 - OTHER SPECIFIED POSTPROCEDURAL STATES * DO NOT USE * (11) S/P TVR (tricuspid valve repair) Code(s): Z98.89 - OTHER SPECIFIED POSTPROCEDURAL STATES * DO NOT USE * (12) Single implantable cardioverter-defibrillator (ICD) in situ Code(s): Z95.810 - PRESENCE OF AUTOMATIC (IMPLANTABLE) CARDIAC DEFIBRILLATOR (13) Systolic dysfunction without heart failure Code(s): I51.9 - HEART DISEASE, UNSPECIFIED Visit type - Emergency Visit Emergency Visit: Yes ED Registration Date: 07/03/17 Care time: The patient presented to the Emergency Department on the above date and was hospitalized for further evaluation of their emergent condition. - New Patient This patient is new to me today: No - Critical Care Critical Care patient: No
[2017-07-04] MEDS ORDERED: WARFARIN NA 1 MG TABLET (FP) PO SCH (18:00)
[2017-07-04] MEDS: MONTELUKAST NA 10 MG TABLET PO SCH (21:15)
[2017-07-04] MEDS: ATORVASTATIN CA 20 MG TABLET (FP) PO SCH (21:18)
[2017-07-04] MEDS: MIRTAZAPINE 15 MG TABLET (FP) PO SCH (22:00)
[2017-07-05] MEDS: methylPREDNISolone NA SUCC 40 MG/1 ML VIAL IVPUSH SCH ×2 (02:10→09:38)
[2017-07-05 02:41] VITALS: TEMP 98
[2017-07-05] MEDS: PANTOPRAZOLE 40 MG TABLET (FP) PO SCH (06:33)
[2017-07-05] MEDS: ALBUTEROL SO4 2.5/IPRATROPIUM 0.5 INH SOL 3 ML VIAL.NEB. NEB SCH ×2 (07:44→11:28)
[2017-07-05 08:27] LABS: INR 2.21 (0.82-1.09)
[2017-07-05] MEDS ORDERED: PT OWN MED DRAWER 7, Y5N ONE (09:35)
[2017-07-05] MEDS: LOSARTAN POTASSIUM 25 MG TABLET PO SCH (09:37)
[2017-07-05] MEDS: VENLAFAXINE HCL 75 MG TABLET PO SCH (09:38)
[2017-07-05] MEDS: CEFTRIAXONE 1 G/50 ML PREMIX 50 ML IVPB SCH (09:38)
[2017-07-05] MEDS: FUROSEMIDE 20 MG TABLET (FP) PO SCH (09:38)
[2017-07-05] MEDS: AZITHROMYCIN IVPB 250 MG in DEXTROSE 5%-WATER - 250 ML IVPB SCH (10:11)
[2017-07-05 10:50] VITALS: BP 120/54; PULSE 98
--- NOTE | 2017-07-05 11:54 | PN ---
Progress Note, Physician History of Present Illness: Dyspnea, cough, wheeze improving with treatment. - Current Medication List Current Medications: Active Medications Acetaminophen (Tylenol -) 650 mg PO Q4H PRN PRN Reason: PAIN LEVEL 1-5 Albuterol/Ipratropium (Duoneb -) 1 amp NEB RQID [facility] Last Admin: 07/05/17 11:28 Dose: 1 amp Atorvastatin Calcium (Lipitor -) 20 mg PO HS [facility] Last Admin: 07/04/17 21:18 Dose: 20 mg Azithromycin (Zithromax -) 250 mg PO ONCE ONE Stop: 07/05/17 11:03 Furosemide (Lasix -) 20 mg PO DAILY [facility] Last Admin: 07/05/17 09:38 Dose: 20 mg CEFTRIAXONE 1 G/50 ML PREMIX (Ceftriaxone 1 Gm-D5w Bag) 50 mls @ 100 mls/hr IVPB DAILY [facility] Last Admin: 07/05/17 09:38 Dose: 100 mls/hr Lorazepam (Ativan -) 0.5 mg PO BID PRN PRN Reason: ANXIETY Losartan Potassium (Cozaar -) 25 mg PO DAILY [facility] Last Admin: 07/05/17 09:37 Dose: 25 mg Methylprednisolone Sodium Succinate (Solu-Medrol -) 40 mg IVPUSH Q8H-IV [facility] Last Admin: 07/05/17 09:38 Dose: 40 mg Mirtazapine (Remeron -) [address] [facility] Last Admin: 07/04/17 22:00 Dose: Not Given Montelukast Sodium (Singulair -) [address] [facility] Last Admin: 07/04/17 21:15 Dose: 10 mg Non-Formulary Medication (Beclomethasone Dipropionate [Qvar]) 8.7 gm IH DAILY [facility] Non-Formulary Medication (Tiotropium Br/Olodaterol Hcl [Stiolto Respimat Inhal [place]]) 2.5 mcg IH DAILY [facility] Pantoprazole Sodium (Protonix -) 40 mg PO DAILY@0730 [facility] Last Admin: 07/05/17 06:33 Dose: 40 mg Venlafaxine HCl (Effexor -) 75 mg PO DAILY [facility] Last Admin: 07/05/17 09:38 Dose: 75 mg Warfarin Sodium (Coumadin -) 1 mg PO DAILY@1800 [facility] Last Admin: 07/04/17 17:24 Dose: 1 mg - Objective Vital Signs: Vital Signs Temperature 98 F 07/05/17 02:40 Pulse Rate 98 H 07/05/17 10:00 Respiratory Rate 20 07/05/17 10:00 Blood Pressure 120/54 07/05/17 10:00 O2 Sat by Pulse Oximetry (%) 95 07/05/17 09:00 Constitutional: Yes: No Distress, Calm, Thin Neck: Yes: Supple Cardiovascular: Yes: Regular Rate and Rhythm Respiratory: Yes: Regular, Diminished, On Nasal O2 Gastrointestinal: Yes: Normal Bowel Sounds, Soft Edema: No Labs: CBC, BMP 07/04/17 06:00 07/04/17 06:00 INR, PTT INR 2.21 (0.82-1.09) H 07/05/17 06:30 - ....Imaging Chest X-ray: Report Reviewed (Left retrocardiac opacity) Problem List - Problems (1) Acute hypercapnic respiratory failure Code(s): J96.02 - ACUTE RESPIRATORY FAILURE WITH HYPERCAPNIA (2) COPD exacerbation Code(s): J44.1 - CHRONIC OBSTRUCTIVE PULMONARY DISEASE W (ACUTE) EXACERBATION (3) Pneumonia Code(s): J18.9 - PNEUMONIA, UNSPECIFIED ORGANISM Qualifiers: Pneumonia type: due to unspecified organism Laterality: left Lung location: unspecified part of lung Qualified Code(s): J18.9 - Pneumonia, unspecified organism (4) History of CHF (congestive heart failure) Code(s): Z86.79 - PERSONAL HISTORY OF OTHER DISEASES OF THE CIRCULATORY SYSTEM (5) History of [place] (myocardial infarction) Code(s): I25.2 - OLD MYOCARDIAL INFARCTION (6) History of coronary artery disease Code(s): Z86.79 - PERSONAL HISTORY OF OTHER DISEASES OF THE CIRCULATORY SYSTEM (7) History of hypercholesterolemia Code(s): Z86.39 - PERSONAL HISTORY OF ENDO, NUTRITIONAL AND METABOLIC DISEASE (8) History of hypertension Code(s): Z86.79 - PERSONAL HISTORY OF OTHER DISEASES OF THE CIRCULATORY SYSTEM (9) Reactive airway disease Code(s): J45.909 - UNSPECIFIED ASTHMA, UNCOMPLICATED Qualifiers: Asthma severity: mild (10) S/P CABG (coronary artery bypass graft) Code(s): Z95.1 - PRESENCE OF AORTOCORONARY BYPASS GRAFT (11) S/P MVR (mitral valve repair) Code(s): Z98.89 - OTHER SPECIFIED POSTPROCEDURAL STATES * DO NOT USE * (12) S/P TVR (tricuspid valve repair) Code(s): Z98.89 - OTHER SPECIFIED POSTPROCEDURAL STATES * DO NOT USE * (13) Single implantable cardioverter-defibrillator (ICD) in situ Code(s): Z95.810 - PRESENCE OF AUTOMATIC (IMPLANTABLE) CARDIAC DEFIBRILLATOR (14) Systolic dysfunction without heart failure Code(s): I51.9 - HEART DISEASE, UNSPECIFIED Assessment/Plan 10/13/2015 Mild LV systolic dysfunction with MR, TR 1. Acute on chronic hypercapneic respiratory failure improving 2. Pneumonia improving 3. COPD exacerbation improving 4. CAD post CABG, angina pectoris 5. Post MVR and TVR 6. PAF [id number] score of 6 therapeutic INR 7. HTN/HCVD 8. Hypercholesterolemia 9. LV systolic dysfunction 10. History of VF arrest post ICD PLAN: 1. Continue bronchodilator, IV steroid taper with GI protection, singulair and O2 to keep SpO2 >90% 2. Complete empiric antibiotic course 3. Continue Losartan 25 qd 4. Continue Warfarin with INR checks (keep btw 2-3) 5. Continue Lipitor 20 qhs, resume Lopressor 25 bid, d/c Lasix 20 qd
[2017-07-05] MEDS ORDERED: METOPROLOL TARTRATE 25 MG TABLET (FP) PO ONE (12:14)
--- NOTE | 2017-07-05 12:25 | PN ---
Progress Note, Physician Chief Complaint: feels improved History of Present Illness: REVIEWED - Current Medication List Current Medications: Active Medications Acetaminophen (Tylenol -) 650 mg PO Q4H PRN PRN Reason: PAIN LEVEL 1-5 Albuterol/Ipratropium (Duoneb -) 1 amp NEB RQID [facility] Last Admin: 07/05/17 11:28 Dose: 1 amp Atorvastatin Calcium (Lipitor -) 20 mg PO HS [facility] Last Admin: 07/04/17 21:18 Dose: 20 mg Azithromycin (Zithromax -) 250 mg PO ONCE ONE Stop: 07/05/17 12:36 CEFTRIAXONE 1 G/50 ML PREMIX (Ceftriaxone 1 Gm-D5w Bag) 50 mls @ 100 mls/hr IVPB DAILY [facility] Last Admin: 07/05/17 09:38 Dose: 100 mls/hr Lorazepam (Ativan -) 0.5 mg PO BID PRN PRN Reason: ANXIETY Losartan Potassium (Cozaar -) 25 mg PO DAILY [facility] Last Admin: 07/05/17 09:37 Dose: 25 mg Methylprednisolone Sodium Succinate (Solu-Medrol -) 40 mg IVPUSH Q8H-IV [facility] Last Admin: 07/05/17 09:38 Dose: 40 mg Metoprolol Tartrate (Lopressor -) 25 mg PO BID [facility] Metoprolol Tartrate (Lopressor -) 25 mg PO ONCE ONE Stop: 07/05/17 12:15 Mirtazapine (Remeron -) 15 mg PO HS [facility] Last Admin: 07/04/17 22:00 Dose: Not Given Montelukast Sodium (Singulair -) 10 mg PO HS [facility] Last Admin: 07/04/17 21:15 Dose: 10 mg Non-Formulary Medication (Beclomethasone Dipropionate [Qvar]) 8.7 gm IH DAILY [facility] Non-Formulary Medication (Tiotropium Br/Olodaterol Hcl [Stiolto Respimat Inhal [place]]) 2.5 mcg IH DAILY [facility] Pantoprazole Sodium (Protonix -) 40 mg PO DAILY@0730 [facility] Last Admin: 07/05/17 06:33 Dose: 40 mg Venlafaxine HCl (Effexor -) 75 mg PO DAILY [facility] Last Admin: 07/05/17 09:38 Dose: 75 mg Warfarin Sodium (Coumadin -) 1 mg PO DAILY@1800 [facility] Last Admin: 07/04/17 17:24 Dose: 1 mg - Objective Vital Signs: Vital Signs Temperature 98 F 07/05/17 02:40 Pulse Rate 98 H 07/05/17 10:00 Respiratory Rate 20 07/05/17 10:00 Blood Pressure 120/54 07/05/17 10:00 O2 Sat by Pulse Oximetry (%) 95 07/05/17 09:00 Constitutional: Yes: Calm Eyes: Yes: EOM Intact HENT: Yes: Normocephalic Neck: Yes: Trachea Midline Cardiovascular: Yes: Regular Rate and Rhythm Respiratory: Yes: CTA Bilaterally Gastrointestinal: Yes: Normal Bowel Sounds Extremities: Yes: WNL Labs: CBC, BMP 07/04/17 06:00 07/04/17 06:00 INR, PTT INR 2.21 (0.82-1.09) H 07/05/17 06:30 - ....Imaging Chest X-ray: Report Reviewed, Image Reviewed EKG: Report Reviewed Problem List - Problems (1) Acute hypercapnic respiratory failure Code(s): J96.02 - ACUTE RESPIRATORY FAILURE WITH HYPERCAPNIA (2) Asthma exacerbation Code(s): J45.901 - UNSPECIFIED ASTHMA WITH (ACUTE) EXACERBATION Qualifiers: Asthma severity: unspecified severity Asthma persistence: unspecified Qualified Code(s): J45.901 - Unspecified asthma with (acute) exacerbation (3) COPD exacerbation Code(s): J44.1 - CHRONIC OBSTRUCTIVE PULMONARY DISEASE W (ACUTE) EXACERBATION Assessment/Plan Acute on Chronic Hypercapneic Respiratory Failure Acute COPD Exacerbation Pneumonia CAD s/p CABG Atrial Fibrillation s/p AVR/MVR - change to oral steroids - inhaled bronchodilators - O2 to keep SpO2 >90% if needed - will order spo2 pre/post amb - continue antibiotics as outpatient - rate control - continue anticoagulation - suggest outpatient ct chest Zoltan LUA MD
[2017-07-05] MEDS ORDERED: AZITHROMYCIN 250 MG TABLET PO ONE (12:35)
--- NOTE | 2017-07-05 13:33 | DS ---
Physical Exam: SUBJECTIVE: Patient seen and examined. Pt feels well, still with productive phlegm, no cough, wants to go home OBJECTIVE: Vital Signs Period Temp Pulse Resp BP Sys/Pino Pulse Ox Last 24 Hr 97.4 F-98.2 F 76-98 18-20 99-136/42-61 88-95 PE Neuro: alert,awake, cn 2-12intact Pulm: diminished, scattered crackles CV: s1 s2 rrr + systolic murmur Abd: s nt nd + bs Ext: warm, trace le edema Laboratory Results - last 24 hr 07/05/17 06:30 PT with INR 25.00 H INR 2.21 H HOSPITAL COURSE: Date of Admission:07/04/17 Date of Discharge: 07/05/17 Minutes to complete discharge: 37 Discharge Summary Reason For Visit: ACUTE EXACERBATION OF COPD; PNEUMONIA Current Active Problems Acute hypercapnic respiratory failure (Acute) Asthma exacerbation (Acute) COPD exacerbation (Acute) Pneumonia (Acute) Hospital Course: Initial Hospital Course: Briefly, this 76 year old female with a PMHx of COPD/Asthma, HTN, IA s/p triple bypass/double valve placement/stents, CHF, HLD, sent in by her PCP Dr. Prater for worsening sob and wheezing. Shortness of breath worsened over 2 days with increased mucus production. She has been intubated in the past for COPD exacerbations per her son. Subsequent Hospital Course/Progress Note/DC summary: Assessment: 76 year old female with a PMHx of COPD/Asthma, HTN, IA s/p triple bypass/double valve placement/stents, CHF, HLD, sent in by her PCP Dr. Prater for worsening sob and wheezing. Plan: 1. Acute on chronic COPD exacerbation, +/- LLL PNA - s/p IV medrol course - Home with po prednisone taper - Complete 5 days abx (azithro/ceftriaxone -> ceftin) - Pt refused pre and post for home o2, she is low 90's on RA with conversation, without 94%, she is aware of risk of hypoxia, she still refuses, her son is with her all the time - Singular - Qvar - Pulm follow up 2. LV systolic dysfunction with history of CHF - Cozaar 25mg daily - Stop Lasix 20mg - Started lopressor 25mg BID 3. CAD s/p IA s/p CABG, ICD s/p VF arrest - Cardiology follow up in office 4. PAF - Coumadin 1mg 5. HTN - Cozaar 6. HLD - Lipitor Dispo: - Home with above meds and follow up as listed Condition: Stable - Instructions Diet, Activity, Other Instructions: Please return to the ED for any new, persistent, or worsening symptoms. Follow up with your PCP in 1 week Resume home medication as directed on home medication list, stop lasix, start take lopressor 25mg twice/day Complete steroid taper with antibiotics as directed Follow up with Dr. Galvan and Dr. Neely in office in 1-2 weeks Referrals: Minh Neely MD [Staff Physician] - 2 Weeks Pio Galvan MD [Staff Physician] - Disposition: HOME - Home Medications Comprehensive Discharge Medication List: Ambulatory Orders Omeprazole [Prilosec (RX)] 20 mg PO DAILY 11/14/12 Losartan Potassium [Cozaar -] 25 mg PO DAILY #0 tablet 11/19/12 Mirtazapine [Remeron -] 15 mg PO HS #0 tablet 11/19/12 LORazepam [Ativan] 0.5 mg PO BID PRN 06/03/15 Venlafaxine HCl [Effexor -] 75 mg PO DAILY 06/03/15 Warfarin Na [Coumadin -] 1 mg PO DAILY 06/03/15 Atorvastatin Ca [Lipitor] 20 mg PO HS #30 tablet 08/18/15 Beclomethasone Dipropionate [Qvar] 8.7 gm IH DAILY 03/25/17 Montelukast Na [Singulair -] 10 mg PO HS 03/25/17 Tiotropium Br/Olodaterol HCl [Stiolto Respimat Inhal [place]] 2.5 mcg IH DAILY Azithromycin 250 mg PO DAILY #2 tablet 07/05/17 Cefuroxime Axetil [Ceftin -] 500 mg PO Q12H #6 tablet 07/05/17 Metoprolol Tartrate [Lopressor -] 25 mg PO BID #60 tablet 07/05/17 Prednisone 10 mg PO DAILY #30 tablet 07/05/17 Problem List - Problems (1) Asthma exacerbation Code(s): J45.901 - UNSPECIFIED ASTHMA WITH (ACUTE) EXACERBATION Qualifiers: Asthma severity: unspecified severity Asthma persistence: unspecified Qualified Code(s): J45.901 - Unspecified asthma with (acute) exacerbation (2) COPD exacerbation Code(s): J44.1 - CHRONIC OBSTRUCTIVE PULMONARY DISEASE W (ACUTE) EXACERBATION (3) Pneumonia Code(s): J18.9 - PNEUMONIA, UNSPECIFIED ORGANISM Qualifiers: Pneumonia type: due to unspecified organism Laterality: left Lung location: unspecified part of lung Qualified Code(s): J18.9 - Pneumonia, unspecified organism (4) Acute respiratory distress Code(s): R06.03 - ACUTE RESPIRATORY DISTRESS (5) History of CHF (congestive heart failure) Code(s): Z86.79 - PERSONAL HISTORY OF OTHER DISEASES OF THE CIRCULATORY SYSTEM (6) History of IA (myocardial infarction) Code(s): I25.2 - OLD MYOCARDIAL INFARCTION (7) History of hypercholesterolemia Code(s): Z86.39 - PERSONAL HISTORY OF ENDO, NUTRITIONAL AND METABOLIC DISEASE (8) History of hypertension Code(s): Z86.79 - PERSONAL HISTORY OF OTHER DISEASES OF THE CIRCULATORY SYSTEM (9) S/P CABG (coronary artery bypass graft) Code(s): Z95.1 - PRESENCE OF AORTOCORONARY BYPASS GRAFT (10) S/P MVR (mitral valve repair) Code(s): Z98.89 - OTHER SPECIFIED POSTPROCEDURAL STATES * DO NOT USE * (11) S/P TVR (tricuspid valve repair) Code(s): Z98.89 - OTHER SPECIFIED POSTPROCEDURAL STATES * DO NOT USE * (12) Single implantable cardioverter-defibrillator (ICD) in situ Code(s): Z95.810 - PRESENCE OF AUTOMATIC (IMPLANTABLE) CARDIAC DEFIBRILLATOR (13) Systolic dysfunction without heart failure Code(s): I51.9 - HEART DISEASE, UNSPECIFIED This patient is new to me today: No Emergency Visit: Yes ED Registration Date: 07/04/17 Care time: The patient presented to the Emergency Department on the above date and was hospitalized for further evaluation of their emergent condition. Critical Care patient: No - Discharge Referral Referred to [facility] No
[2017-07-05] MEDS ORDERED: METOPROLOL TARTRATE 25 MG TABLET (FP) PO SCH (22:00)
== END 2017-07-05 15:17 | disposition home or self-care (01) | DRG 193 ==
LOC: JER 12:19 → OBSVTOIN 16:34 → INTOOBSV 16:34 → JERBED 16:34 → UNDOADMOB 16:34 → J7W 19:25 → JERBED 19:25 → OBSVTOIN 07-04 19:59 → J7W 07-04 19:59
PROVIDERS: ADMIT Internal Medicine; ATTEND Nurse Practitioner Acute Care
DX: J18.9 Pneumonia, unspecified organism (principal); J96.02 Acute respiratory failure with hypercapnia; J44.1 Chronic obstructive pulmonary disease with (acute) exacerbation; I50.22 Chronic systolic (congestive) heart failure; Z95.1 Presence of aortocoronary bypass graft; Z95.4 Presence of other heart-valve replacement; E78.5 Hyperlipidemia, unspecified; I11.0 Hypertensive heart disease with heart failure; Z79.01 Long term (current) use of anticoagulants; I48.0 Paroxysmal atrial fibrillation; Z86.718 Personal history of other venous thrombosis and embolism; I25.119 Atherosclerotic heart disease of native coronary artery with unspecified angina pectoris
CPT/HCPCS: 36415; 36600; 71045-TC; 80053; 82550; 82803; 83735; 84100; 84484; 85025; 85610; 87040; 93005; 93010; 94640; 99284-25

== ENCOUNTER 2021-09-24 05:13 | Inpatient (IN) | payer OTHER ==
[2021-09-24] MEDS ORDERED: methylPREDNISolone NA SUCC 125 MG/2 ML VIAL IVPUSH ONE (05:27)
[2021-09-24] MEDS ORDERED: CEFTRIAXONE 1 GM in DEXTROSE 5%-WATER - 100 ML IVPB ONE (05:34)
[2021-09-24 05:43] VITALS: BMI 26.2
[2021-09-24] MEDS ORDERED: methylPREDNISolone NA SUCC 125 MG/2 ML VIAL IM ONE (05:52)
[2021-09-24] MEDS: ALBUTEROL SO4 2.5/IPRATROPIUM 0.5 INH SOL 3 ML VIAL.NEB. NEB SCH ×6 (05:53→20:10)
[2021-09-24 05:57] LABS: ARTERIAL BLD GAS O2 SATURATION 98.6 % (95-98); ARTERIAL BLOOD GAS BASE EXCESS -6.7 mmol/L (-2-2); ARTERIAL BLOOD GAS PO2 155.8 mmHg (80-100)
[2021-09-24 06:08] LABS: ALLENS TEST POSITIVE
[2021-09-24 06:10] LABS: VENT RATE 12
[2021-09-24] MEDS ORDERED: CEFTRIAXONE 1 GM/50 ML BAG ONE ×2 (06:30→09:35)
[2021-09-24 06:56] LABS: BASO % 0.9 % (0-2.0); EOS % 2.1 % (0-4.5); HEMATOCRIT 36.5 % (32.4-45.2); LYMPH % 27.4 % (8-40); MCH 22.8 pg (25.7-33.7); MCHC 30.2 g/dl (32.0-36.0); MEAN CELL VOLUME 75.5 fl (80-96); MEAN PLT VOLUME 7.8 fl (7.5-11.1); MONO % 7.4 % (3.8-10.2); NEUT % 62.2 % (42.8-82.8); PLATELET COUNT 350 10^3/uL (134-434); RBC 4.84 M/mm3 (3.60-5.2); RDW 18.5 % (11.6-15.6); WHITE BLOOD COUNT 16.4 K/mm3 (4.0-10.0)
[2021-09-24 07:09] LABS: INR 1.55 (0.83-1.09); PROTHROMBIN TIME (PATIENT) 17.9 SEC (9.7-13.0)
[2021-09-24 07:12] LABS: CALCIUM 9.1 mg/dL (8.5-10.1)
[2021-09-24 07:13] LABS: ALBUMIN 4.1 g/dl (3.4-5.0); BLOOD UREA NITROGEN 21.7 mg/dL (7-18)
[2021-09-24 07:16] LABS: CREATININE 0.9 mg/dL (0.55-1.3)
[2021-09-24 07:18] LABS: BILIRUBIN,TOTAL 0.4 mg/dL (0.2-1); TOT PROT 8.5 g/dl (6.4-8.2)
[2021-09-24 07:39] LABS: N-TERMINAL BNP 3692.4 pg/ml (5-450)
[2021-09-24 07:58] LABS: LACTIC ACID 4.2 mmol/L (0.4-2.0)
[2021-09-24] MEDS ORDERED: ALBUTEROL SO4 0.083% IH SOL 2.5 MG/3 ML VIAL.NEB. NEB PRN (07:58)
[2021-09-24] MEDS ORDERED: AZITHROMYCIN IVPB 500 MG in DEXTROSE 5%-WATER - 250 ML IVPB ONE (08:02)
[2021-09-24] MEDS ORDERED: ALBUTEROL SO4 2.5/IPRATROPIUM 0.5 INH SOL 3 ML VIAL.NEB. NEB ONE ×2 (08:47→11:56)
[2021-09-24] MEDS ORDERED: AZITHROMYCIN IVPB 500 MG/250 ML BAG IVPB ONE (08:48)
[2021-09-24 09:04] LABS: ARTERIAL BLD GAS O2 SATURATION 98.6 % (95-98); ARTERIAL BLOOD GAS BASE EXCESS -3.4 mmol/L (-2-2); ARTERIAL BLOOD GAS PO2 135.6 mmHg (80-100); ARTERIAL BLOOD GAS pH 7.349 (7.350-7.450)
[2021-09-24 09:06] LABS: ALLENS TEST POSITIVE; VENT MODE S/T; VENT RATE 12
[2021-09-24] MEDS ORDERED: METOPROLOL TARTRATE 50 MG TABLET (FP) ONE (09:34)
[2021-09-24] MEDS ORDERED: FAMOTIDINE 20 MG TABLET ONE (09:34)
[2021-09-24] MEDS ORDERED: methylPREDNISolone NA SUCC 40 MG/1 ML VIAL ONE (09:35)
[2021-09-24] MEDS: FAMOTIDINE 20 MG TABLET PO SCH (09:57)
[2021-09-24] MEDS: ISOSORBIDE MONONITRATE 30 MG TAB.SR.24H (FP) PO SCH (09:57)
[2021-09-24] MEDS: methylPREDNISolone NA SUCC 40 MG/1 ML VIAL IVPUSH SCH ×2 (09:57→18:11)
[2021-09-24] MEDS: METOPROLOL TARTRATE 50 MG TABLET (FP) PO SCH ×2 (09:57→22:08)
[2021-09-24] MEDS ORDERED: VENLAFAXINE HCL 75 MG TABLET PO SCH (10:00)
[2021-09-24] MEDS: CEFTRIAXONE 1 GM in DEXTROSE 5%-WATER - 50 ML IVPB SCH (10:18)
[2021-09-24] MEDS: VENLAFAXINE HCL 75 MG TABLET PO SCH (10:24)
[2021-09-24] MEDS ORDERED: WARFARIN NA 2 MG TABLET PO ONE (18:00)
[2021-09-24] MEDS: ATORVASTATIN CA 20 MG TABLET (FP) PO SCH (22:08)
[2021-09-24] MEDS: MIRTAZAPINE 15 MG TABLET (FP) PO SCH (22:08)
[2021-09-24] MEDS: MONTELUKAST NA 10 MG TABLET PO SCH (22:08)
[2021-09-25] MEDS: methylPREDNISolone NA SUCC 40 MG/1 ML VIAL IVPUSH SCH ×3 (02:18→18:11)
[2021-09-25] MEDS: ALBUTEROL SO4 2.5/IPRATROPIUM 0.5 INH SOL 3 ML VIAL.NEB. NEB SCH ×4 (07:25→20:33)
[2021-09-25 07:50] LABS: HEMATOCRIT 24.6 % (32.4-45.2); HEMOGLOBIN 7.6 GM/dL (10.7-15.3); MCH 22.8 pg (25.7-33.7); MCHC 30.9 g/dl (32.0-36.0); MEAN CELL VOLUME 73.7 fl (80-96); MEAN PLT VOLUME 7.8 fl (7.5-11.1); PLATELET COUNT 264 10^3/uL (134-434); RBC 3.33 M/mm3 (3.60-5.2); RDW 18.6 % (11.6-15.6); WHITE BLOOD COUNT 11.8 K/mm3 (4.0-10.0)
[2021-09-25 07:52] LABS: INR 2.33 (0.83-1.09)
[2021-09-25 08:02] LABS: CALCIUM 8.4 mg/dL (8.5-10.1)
[2021-09-25 08:05] LABS: CREATININE 0.7 mg/dL (0.55-1.3)
[2021-09-25 09:38] LABS: ANISOCYTOSIS 0; MACROCYTOSIS 0
[2021-09-25] MEDS ORDERED: cefTRIAXone SODIUM 1 GM VIAL ONE (10:33)
[2021-09-25] MEDS ORDERED: DEXTROSE 5%-WATER - 50 ML IVPB ONE (10:33)
[2021-09-25] MEDS: CEFTRIAXONE 1 GM in DEXTROSE 5%-WATER - 50 ML IVPB SCH (11:06)
[2021-09-25] MEDS: METOPROLOL TARTRATE 50 MG TABLET (FP) PO SCH ×2 (11:09→21:37)
[2021-09-25] MEDS: ISOSORBIDE MONONITRATE 30 MG TAB.SR.24H (FP) PO SCH (11:09)
[2021-09-25] MEDS: AZITHROMYCIN IVPB 250 MG in DEXTROSE 5%-WATER - 250 ML IVPB SCH (11:10)
[2021-09-25] MEDS: FAMOTIDINE 20 MG TABLET PO SCH (11:10)
[2021-09-25] MEDS: VENLAFAXINE HCL 75 MG TABLET PO SCH (11:10)
[2021-09-25 13:58] LABS: HEMATOCRIT 24.5 % (32.4-45.2); HEMOGLOBIN 7.4 GM/dL (10.7-15.3); MCH 22.6 pg (25.7-33.7); MCHC 30.4 g/dl (32.0-36.0); MEAN CELL VOLUME 74.3 fl (80-96); MEAN PLT VOLUME 7.8 fl (7.5-11.1); PLATELET COUNT 294 10^3/uL (134-434); RDW 18.5 % (11.6-15.6); WHITE BLOOD COUNT 14.3 K/mm3 (4.0-10.0)
[2021-09-25 15:12] LABS: ANISOCYTOSIS 0; MACROCYTOSIS 1+; OVALOCYTE 1+
[2021-09-25] MEDS: PANTOPRAZOLE SODIUM 40 MG VIAL IVPUSH SCH ×2 (15:55→21:37)
[2021-09-25 20:07] LABS: LACTIC ACID 2.9 mmol/L (0.4-2.0)
[2021-09-25] MEDS: ATORVASTATIN CA 20 MG TABLET (FP) PO SCH (21:37)
[2021-09-25] MEDS: MONTELUKAST NA 10 MG TABLET PO SCH (21:37)
[2021-09-25] MEDS: MIRTAZAPINE 15 MG TABLET (FP) PO SCH (21:37)
[2021-09-26] MEDS: methylPREDNISolone NA SUCC 40 MG/1 ML VIAL IVPUSH SCH ×3 (02:15→17:48)
[2021-09-26] MEDS ORDERED: ALBUTEROL SO4 2.5/IPRATROPIUM 0.5 INH SOL 3 ML VIAL.NEB. NEB ONE (05:09)
[2021-09-26 07:59] LABS: HEMATOCRIT 32.7 % (32.4-45.2); HEMOGLOBIN 10.3 GM/dL (10.7-15.3); MCH 24.2 pg (25.7-33.7); MCHC 31.4 g/dl (32.0-36.0); MEAN CELL VOLUME 77.1 fl (80-96); MEAN PLT VOLUME 7.7 fl (7.5-11.1); PLATELET COUNT 329 10^3/uL (134-434); RBC 4.24 M/mm3 (3.60-5.2); RDW 20.7 % (11.6-15.6); WHITE BLOOD COUNT 16.5 K/mm3 (4.0-10.0)
[2021-09-26 08:10] LABS: INR 2.27 (0.83-1.09); PROTHROMBIN TIME (PATIENT) 26.3 SEC (9.7-13.0)
[2021-09-26] MEDS: ALBUTEROL SO4 2.5/IPRATROPIUM 0.5 INH SOL 3 ML VIAL.NEB. NEB SCH ×4 (08:25→20:00)
[2021-09-26 08:36] LABS: CALCIUM 8.8 mg/dL (8.5-10.1)
[2021-09-26 08:37] LABS: ALBUMIN 3.3 g/dl (3.4-5.0); CREATININE 0.8 mg/dL (0.55-1.3); MAGNESIUM 2.3 mg/dL (1.8-2.4)
[2021-09-26 08:39] LABS: BILIRUBIN,TOTAL 0.6 mg/dL (0.2-1)
[2021-09-26 09:19] LABS: ANISOCYTOSIS 2+; MACROCYTOSIS 1+
[2021-09-26] MEDS ORDERED: cefTRIAXone SODIUM 1 GM VIAL ONE (10:02)
[2021-09-26] MEDS ORDERED: DEXTROSE 5%-WATER - 50 ML IVPB ONE (10:03)
[2021-09-26] MEDS: CEFTRIAXONE 1 GM in DEXTROSE 5%-WATER - 50 ML IVPB SCH (10:14)
[2021-09-26] MEDS: AZITHROMYCIN IVPB 250 MG in DEXTROSE 5%-WATER - 250 ML IVPB SCH (10:20)
[2021-09-26] MEDS: VENLAFAXINE HCL 75 MG TABLET PO SCH (10:21)
[2021-09-26] MEDS: METOPROLOL TARTRATE 50 MG TABLET (FP) PO SCH ×2 (10:21→21:30)
[2021-09-26] MEDS: FAMOTIDINE 20 MG TABLET PO SCH (10:21)
[2021-09-26] MEDS: ISOSORBIDE MONONITRATE 30 MG TAB.SR.24H (FP) PO SCH (10:23)
[2021-09-26] MEDS: PANTOPRAZOLE SODIUM 40 MG VIAL IVPUSH SCH (10:24)
[2021-09-26] MEDS ORDERED: FUROSEMIDE 40 MG/4 ML INJECTABLE VIAL IVPUSH ONE (10:45)
[2021-09-26] MEDS ORDERED: WITCH HAZEL 50% (TUCKS) 40 PAD/JAR PAD TP PRN (17:56)
[2021-09-26] MEDS: WARFARIN NA 1 MG TABLET PO SCH (18:04)
[2021-09-26] MEDS: ATORVASTATIN CA 20 MG TABLET (FP) PO SCH (21:29)
[2021-09-26] MEDS: POLYETHYLENE GLYCOL (HEALTHYLAX) 3350 17 GM PACKET PO SCH (21:29)
[2021-09-26] MEDS: MONTELUKAST NA 10 MG TABLET PO SCH (21:29)
[2021-09-26] MEDS: MIRTAZAPINE 15 MG TABLET (FP) PO SCH (21:29)
[2021-09-27] MEDS: methylPREDNISolone NA SUCC 40 MG/1 ML VIAL IVPUSH SCH ×4 (01:41→21:21)
[2021-09-27 07:40] LABS: HEMATOCRIT 32.9 % (32.4-45.2); HEMOGLOBIN 10.7 GM/dL (10.7-15.3); MCH 25.1 pg (25.7-33.7); MCHC 32.7 g/dl (32.0-36.0); MEAN CELL VOLUME 76.7 fl (80-96); MEAN PLT VOLUME 7.4 fl (7.5-11.1); PLATELET COUNT 308 10^3/uL (134-434); RBC 4.29 M/mm3 (3.60-5.2); RDW 20.5 % (11.6-15.6); WHITE BLOOD COUNT 13.4 K/mm3 (4.0-10.0)
[2021-09-27 07:52] LABS: ALBUMIN 3.2 g/dl (3.4-5.0); BLOOD UREA NITROGEN 33.2 mg/dL (7-18); CALCIUM 8.7 mg/dL (8.5-10.1); CREATININE 0.7 mg/dL (0.55-1.3); MAGNESIUM 2.2 mg/dL (1.8-2.4)
[2021-09-27 07:53] LABS: BILIRUBIN,TOTAL 0.5 mg/dL (0.2-1); TOT PROT 6.7 g/dl (6.4-8.2)
[2021-09-27 07:55] LABS: INR 1.9 (0.83-1.09)
[2021-09-27] MEDS: ALBUTEROL SO4 2.5/IPRATROPIUM 0.5 INH SOL 3 ML VIAL.NEB. NEB SCH ×4 (08:26→20:40)
[2021-09-27] MEDS ORDERED: DEXTROSE 5%-WATER - 50 ML IVPB ONE (08:44)
[2021-09-27] MEDS ORDERED: cefTRIAXone SODIUM 1 GM VIAL ONE (08:44)
[2021-09-27] MEDS: AZITHROMYCIN IVPB 250 MG in DEXTROSE 5%-WATER - 250 ML IVPB SCH (09:26)
[2021-09-27] MEDS: ISOSORBIDE MONONITRATE 30 MG TAB.SR.24H (FP) PO SCH (09:26)
[2021-09-27] MEDS: POLYETHYLENE GLYCOL (HEALTHYLAX) 3350 17 GM PACKET PO SCH ×2 (09:26→21:25)
[2021-09-27] MEDS: METOPROLOL TARTRATE 50 MG TABLET (FP) PO SCH ×2 (09:26→21:20)
[2021-09-27] MEDS: CEFTRIAXONE 1 GM in DEXTROSE 5%-WATER - 50 ML IVPB SCH (09:27)
[2021-09-27] MEDS: VENLAFAXINE HCL 75 MG TABLET PO SCH (09:29)
[2021-09-27] MEDS: PANTOPRAZOLE 40 MG TABLET PO SCH (09:34)
[2021-09-27] MEDS: FUROSEMIDE 20 MG TABLET (FP) PO SCH (09:48)
[2021-09-27] MEDS ORDERED: WARFARIN NA 1 MG TABLET PO SCH (10:00)
[2021-09-27 10:34] LABS: ANISOCYTOSIS 1+; PLATELET ESTIMATE NORMAL
[2021-09-27] MEDS: WARFARIN NA 1 MG TABLET PO SCH (17:17)
[2021-09-27] MEDS: ATORVASTATIN CA 20 MG TABLET (FP) PO SCH (21:20)
[2021-09-27] MEDS: MONTELUKAST NA 10 MG TABLET PO SCH (21:21)
[2021-09-27] MEDS: MIRTAZAPINE 15 MG TABLET (FP) PO SCH (21:21)
[2021-09-28] MEDS: ALBUTEROL SO4 2.5/IPRATROPIUM 0.5 INH SOL 3 ML VIAL.NEB. NEB SCH ×3 (07:25→15:28)
[2021-09-28 08:03] LABS: BASO % 0.1 % (0-2.0); HEMATOCRIT 35.1 % (32.4-45.2); HEMOGLOBIN 10.9 GM/dL (10.7-15.3); LYMPH % 7.1 % (8-40); MCH 24.1 pg (25.7-33.7); MCHC 31.1 g/dl (32.0-36.0); MEAN CELL VOLUME 77.4 fl (80-96); MEAN PLT VOLUME 7.7 fl (7.5-11.1); MONO % 9.3 % (3.8-10.2); NEUT % 83.5 % (42.8-82.8); PLATELET COUNT 339 10^3/uL (134-434); RBC 4.53 M/mm3 (3.60-5.2); RDW 20.9 % (11.6-15.6); WHITE BLOOD COUNT 15.2 K/mm3 (4.0-10.0)
[2021-09-28 08:11] LABS: INR 2.01 (0.83-1.09); PROTHROMBIN TIME (PATIENT) 23.3 SEC (9.7-13.0)
[2021-09-28 08:33] LABS: CALCIUM 9.1 mg/dL (8.5-10.1)
[2021-09-28 08:34] LABS: BLOOD UREA NITROGEN 37.5 mg/dL (7-18); MAGNESIUM 2.2 mg/dL (1.8-2.4)
[2021-09-28 08:35] LABS: ALBUMIN 3.4 g/dl (3.4-5.0)
[2021-09-28 08:37] LABS: CREATININE 0.8 mg/dL (0.55-1.3)
[2021-09-28 08:39] LABS: BILIRUBIN,TOTAL 1.3 mg/dL (0.2-1); TOT PROT 6.9 g/dl (6.4-8.2)
[2021-09-28] MEDS ORDERED: cefTRIAXone SODIUM 1 GM VIAL ONE (09:05)
[2021-09-28] MEDS ORDERED: DEXTROSE 5%-WATER - 50 ML IVPB ONE (09:05)
[2021-09-28] MEDS: FUROSEMIDE 20 MG TABLET (FP) PO SCH (09:57)
[2021-09-28] MEDS: CEFTRIAXONE 1 GM in DEXTROSE 5%-WATER - 50 ML IVPB SCH (09:57)
[2021-09-28] MEDS: METOPROLOL TARTRATE 50 MG TABLET (FP) PO SCH (09:57)
[2021-09-28] MEDS: ISOSORBIDE MONONITRATE 30 MG TAB.SR.24H (FP) PO SCH (09:57)
[2021-09-28] MEDS: POLYETHYLENE GLYCOL (HEALTHYLAX) 3350 17 GM PACKET PO SCH (09:57)
[2021-09-28] MEDS: PANTOPRAZOLE 40 MG TABLET PO SCH (09:57)
[2021-09-28] MEDS: AZITHROMYCIN IVPB 250 MG in DEXTROSE 5%-WATER - 250 ML IVPB SCH (09:57)
[2021-09-28] MEDS ORDERED: methylPREDNISolone NA SUCC 40 MG/1 ML VIAL IVPUSH SCH (10:00)
[2021-09-28] MEDS: VENLAFAXINE HCL 75 MG TABLET PO SCH (10:51)
[2021-09-28] MEDS ORDERED: VENLAFAXINE HCL 150 MG E.R. CAPSULE PO SCH (12:30)
[2021-09-28] MEDS ORDERED: VENLAFAXINE HCL 75 MG E.R. CAPSULES PO SCH (12:34)
[2021-09-28 15:34] VITALS: BP 142/59; PULSE 68; TEMP 98.2
[2021-09-28] MEDS: WARFARIN NA 1 MG TABLET PO SCH (18:12)
[2021-09-29] MEDS ORDERED: predniSONE 20 MG TABLET (UD) PO SCH (10:00)
[2021-09-29] MEDS ORDERED: VENLAFAXINE HCL 75 MG TABLET PO SCH (10:00)
== END 2021-09-28 18:18 | disposition home or self-care (01) | DRG 189 ==
LOC: JER 05:13 → JERBED 08:11 → J4W 17:00
PROVIDERS: ADMIT Internal Medicine; ATTEND Nurse Practitioner Acute Care
DX: J96.02 Acute respiratory failure with hypercapnia (principal); J44.1 Chronic obstructive pulmonary disease with (acute) exacerbation; E87.2 Acidosis; I50.22 Chronic systolic (congestive) heart failure; J96.01 Acute respiratory failure with hypoxia; E78.5 Hyperlipidemia, unspecified; I11.0 Hypertensive heart disease with heart failure; I48.0 Paroxysmal atrial fibrillation; D64.9 Anemia, unspecified; I25.2 Old myocardial infarction; K59.00 Constipation, unspecified; I71.4 Abdominal aortic aneurysm, without rupture; K64.8 Other hemorrhoids; F41.9 Anxiety disorder, unspecified; M06.9 Rheumatoid arthritis, unspecified; I25.10 Atherosclerotic heart disease of native coronary artery without angina pectoris; Z95.1 Presence of aortocoronary bypass graft; Z95.2 Presence of prosthetic heart valve; Z95.810 Presence of automatic (implantable) cardiac defibrillator; Z80.0 Family history of malignant neoplasm of digestive organs; Z79.01 Long term (current) use of anticoagulants
CPT/HCPCS: 36415; 36430; 36600; 71045-TC-FY; 74174-TC; 80048; 80053; 82272; 82728; 82803; 83540; 83550; 83605; 83735; 83880; 85025; 85610; 86850; 86900; 86901; 86922; 87040; 87804; 93005; 93010; 94640; 94660; 94761; 99291; C9803-CS; P9058; Q9967; U0003; U0005

== ENCOUNTER 2021-11-30 19:20 | Observation (INO) | payer BC, OTHER ==
[2021-11-30 19:30] VITALS: BMI 26.2
[2021-12-01 02:21] LABS: BASO % 0.4 % (0-2.0); EOS % 0.1 % (0-4.5); HEMATOCRIT 28.8 % (32.4-45.2); HEMOGLOBIN 8.9 GM/dL (10.7-15.3); LYMPH % 15.3 % (8-40); MCH 24.2 pg (25.7-33.7); MCHC 31.1 g/dl (32.0-36.0); MEAN PLT VOLUME 7.7 fl (7.5-11.1); MONO % 5.9 % (3.8-10.2); NEUT % 78.3 % (42.8-82.8); PLATELET COUNT 326 10^3/uL (134-434); RBC 3.69 M/mm3 (3.60-5.2); RDW 20.9 % (11.6-15.6); WHITE BLOOD COUNT 12.7 K/mm3 (4.0-10.0)
[2021-12-01 02:41] LABS: INR 1.7 (0.83-1.09); PROTHROMBIN TIME (PATIENT) 19.6 SEC (9.7-13.0)
[2021-12-01 02:44] LABS: ACTIVATED PTT 27.3 SECONDS (25.2-36.5); BLOOD UREA NITROGEN 30.4 mg/dL (7-18); CALCIUM 9.3 mg/dL (8.5-10.1)
[2021-12-01 02:45] LABS: ALBUMIN 3.4 g/dl (3.4-5.0)
[2021-12-01 02:48] LABS: CREATININE 0.9 mg/dL (0.55-1.3)
[2021-12-01 02:49] LABS: BILIRUBIN,TOTAL 0.4 mg/dL (0.2-1); TOT PROT 6.6 g/dl (6.4-8.2)
[2021-12-01 04:32] LABS: ANISOCYTOSIS 3+; MACROCYTOSIS 0; ROULEAU 1+
[2021-12-01 05:32] LABS: EPI CELLS 12 /uL (0-25.1); HYALINE CASTS 1 /uL (0-3.1); URINE APPEARANCE CLEAR; URINE BACTERIA 34 /uL (0-1359); URINE BILIRUBIN NEGATIVE (NEGATIVE); URINE COLOR YELLOW; URINE GLUCOSE (UA) NEGATIVE (NEGATIVE); URINE KETONE NEGATIVE (NEGATIVE); URINE LEUK ESTERASE TRACE (NEGATIVE); URINE NITRITE NEGATIVE (NEGATIVE); URINE PROTEIN NEGATIVE (NEGATIVE); URINE RBC 3 /uL (0-23.9); URINE UROBILINOGEN 0.2 mg/dL (0.2-1.0); URINE WBC 10 /uL (0-25.8)
[2021-12-01] MEDS ORDERED: MAGNESIUM CITRATE 300 ML BOTTLE PO ONE (06:42)
[2021-12-01] MEDS ORDERED: MINERAL OIL ENEMA 133 ML ENEMA PR ONE (06:43)
[2021-12-01] MEDS ORDERED: MAGNESIUM CITRATE 300 ML BOTTLE ONE (07:36)
[2021-12-01] MEDS ORDERED: methylPREDNISolone NA SUCC 125 MG/2 ML VIAL IVPUSH ONE (08:30)
[2021-12-01] MEDS ORDERED: methylPREDNISolone NA SUCC 125 MG/2 ML VIAL ONE (09:07)
[2021-12-01] MEDS ORDERED: FAMOTIDINE 20 MG TABLET PO SCH (10:45)
[2021-12-01 14:57] VITALS: PULSE 71; TEMP 98.1
[2021-12-01 17:36] VITALS: BP 148/75
[2021-12-01] MEDS ORDERED: BUDESONIDE/FORMETEROL FUMARATE 80/4.5 mcg INHALER IH SCH (22:00)
[2021-12-01] MEDS ORDERED: MONTELUKAST NA 10 MG TABLET PO SCH (22:00)
[2021-12-01] MEDS ORDERED: MIRTAZAPINE 15 MG TABLET (FP) PO SCH (22:00)
[2021-12-01] MEDS ORDERED: METOPROLOL TARTRATE 50 MG TABLET (FP) PO SCH (22:00)
[2021-12-01] MEDS ORDERED: ATORVASTATIN CA 20 MG TABLET (FP) PO SCH (22:00)
[2021-12-02] MEDS ORDERED: LOSARTAN POTASSIUM 25 MG TABLET PO SCH (10:00)
[2021-12-02] MEDS ORDERED: MULTIVITAMINS (DAILY MVI) TABLET (FP) PO SCH (10:00)
[2021-12-02] MEDS ORDERED: VENLAFAXINE HCL 75 MG E.R. CAPSULES PO SCH (10:00)
== END 2021-12-01 20:05 | disposition home or self-care (01) ==
LOC: JER 19:20 → JERBED 12-01 06:27 → J6S 12-01 16:33 → UNDODISOB 12-01 17:51
PROVIDERS: ADMIT Hospitalist; ATTEND Internal Medicine
PROC: 3E033GC Introduction of Other Therapeutic Substance into Peripheral Vein, Percutaneous Approach (ICD-10-PCS; principal; 2021-12-01 10:00)
DX: D64.9 Anemia, unspecified (principal); I11.0 Hypertensive heart disease with heart failure; I48.91 Unspecified atrial fibrillation; R01.1 Cardiac murmur, unspecified; Z95.2 Presence of prosthetic heart valve; F41.9 Anxiety disorder, unspecified; Z95.810 Presence of automatic (implantable) cardiac defibrillator; I25.2 Old myocardial infarction
CPT/HCPCS: 36415; 71045-TC-FY; 71046-TC-FY; 80053; 81003; 82272; 82607; 82746; 84484; 85025; 85045; 85610; 85730; 87086; 93005; 93010; 96374; 99285-25; C9803-CS; G0378; U0003; U0005

== ENCOUNTER 2021-12-04 04:44 | Day surgery (SDC) | payer BC, OTHER ==
[2021-12-01 16:07] VITALS: BMI 26.2
[2021-12-04 09:46] VITALS: TEMP 97.8
[2021-12-04 10:18] VITALS: PULSE 60
[2021-12-04 11:09] VITALS: BP 145/52
== END 2021-12-04 11:29 | disposition home or self-care (01) ==
LOC: JASU-ENDO 04:44
PROVIDERS: ATTEND Internal Medicine Gastroenterology
PROC: 0DBM8ZX Excision of Descending Colon, Via Natural or Artificial Opening Endoscopic, Diagnostic (ICD-10-PCS; principal; 2021-12-04 09:00)
DX: D64.9 Anemia, unspecified (principal); D12.4 Benign neoplasm of descending colon; K57.30 Diverticulosis of large intestine without perforation or abscess without bleeding; K64.8 Other hemorrhoids
CPT/HCPCS: 88305-TC

== ENCOUNTER 2022-04-29 15:34 | Inpatient (IN) | payer BC, OTHER ==
[2022-04-29] MEDS ORDERED: DEXAMETHASONE SOD PHOSPHATE 20 MG/5 ML VIAL IVPB ONE (15:38)
[2022-04-29] MEDS ORDERED: ALBUTEROL SO4 2.5/IPRATROPIUM 0.5 INH SOL 3 ML VIAL.NEB. NEB ONE ×2 (15:38→15:47)
[2022-04-29] MEDS ORDERED: MAGNESIUM SULF 50% (8.12 MEQ/2 ML-1 GM VIAL) IVPB ONE (15:40)
[2022-04-29] MEDS ORDERED: DEXAMETHASONE SOD PHOSPHATE 10 MG/1 ML VIAL ONE (15:47)
[2022-04-29] MEDS ORDERED: MAGNESIUM SULFATE IN WATER 2 GM/50 ML IVPB IVPB ONE (15:48)
[2022-04-29 17:18] LABS: BASO % 1.8 % (0-2.0); EOS % 0.8 % (0-4.5); HEMATOCRIT 27.4 % (32.4-45.2); HEMOGLOBIN 8.2 GM/dL (10.7-15.3); LYMPH % 14.3 % (8-40); MCHC 29.9 g/dl (32.0-36.0); MEAN PLT VOLUME 7.5 fl (7.5-11.1); MONO % 3.2 % (3.8-10.2); NEUT % 79.9 % (42.8-82.8); PLATELET COUNT 337 10^3/uL (134-434); RBC 3.56 M/mm3 (3.60-5.2); RDW 20.1 % (11.6-15.6); WHITE BLOOD COUNT 11.5 K/mm3 (4.0-10.0)
[2022-04-29 17:39] LABS: ALBUMIN 3.2 g/dl (3.4-5.0); CALCIUM 8.2 mg/dL (8.5-10.1); MAGNESIUM 2.1 mg/dL (1.8-2.4)
[2022-04-29 17:42] LABS: EPI CELLS 24 /uL (0-25.1); HYALINE CASTS 3 /uL (0-3.1); URINE APPEARANCE CLOUDY; URINE BACTERIA >9,000 /uL (0-1359); URINE BILIRUBIN NEGATIVE (NEGATIVE); URINE COLOR YELLOW; URINE GLUCOSE (UA) NEGATIVE (NEGATIVE); URINE KETONE NEGATIVE (NEGATIVE); URINE LEUK ESTERASE NEGATIVE (NEGATIVE); URINE NITRITE NEGATIVE (NEGATIVE); URINE PROTEIN 2+ (NEGATIVE); URINE UROBILINOGEN 0.2 mg/dL (0.2-1.0)
[2022-04-29 17:43] LABS: CREATININE 0.9 mg/dL (0.55-1.3)
[2022-04-29 17:44] LABS: BILIRUBIN,TOTAL 0.4 mg/dL (0.2-1); TOT PROT 6.9 g/dl (6.4-8.2)
[2022-04-29 17:48] LABS: BLOOD UREA NITROGEN 18.1 mg/dL (7-18); N-TERMINAL BNP 3903.2 pg/ml (5-450)
[2022-04-29] MEDS ORDERED: FUROSEMIDE 40 MG/4 ML INJECTABLE VIAL IVPUSH ONE (17:55)
[2022-04-29 18:14] LABS: LACTIC ACID 2.3 mmol/L (0.4-2.0)
[2022-04-29 18:21] LABS: ARTERIAL BLD GAS O2 SATURATION 97.8 % (95-98); ARTERIAL BLOOD GAS BASE EXCESS 0.9 mmol/L (-2-2); ARTERIAL BLOOD GAS PO2 109.5 mmHg (80-100); ARTERIAL BLOOD GAS pH 7.365 (7.350-7.450)
[2022-04-29 18:22] LABS: ALLENS TEST POSITIVE; VENT MODE S/T
[2022-04-29 18:23] LABS: VENT RATE 16
[2022-04-29] MEDS ORDERED: FUROSEMIDE 40 MG/4 ML INJECTABLE VIAL ONE (18:43)
[2022-04-29] MEDS ORDERED: CEFTRIAXONE 1 GM in DEXTROSE 5%-WATER - 50 ML IVPB ONE (19:30)
[2022-04-29] MEDS ORDERED: CEFTRIAXONE 1 GM/50 ML BAG ONE (20:33)
[2022-04-29] MEDS ORDERED: ALBUTEROL SO4 HFA INHALER IH PRN (20:53)
[2022-04-29] MEDS ORDERED: WARFARIN NA 2 MG TABLET PO SCH (21:00)
[2022-04-29] MEDS ORDERED: AZITHROMYCIN IVPB 500 MG/250 ML BAG IVPB ONE (21:30)
[2022-04-30] MEDS ORDERED: WARFARIN NA 1 MG TABLET ONE (03:19)
[2022-04-30] MEDS ORDERED: AZITHROMYCIN IVPB 500 MG/250 ML BAG IVPB ONE ×2 (03:20→09:51)
[2022-04-30] MEDS: BUDESONIDE/FORMETEROL FUMARATE 80/4.5 mcg INHALER IH SCH ×3 (06:16→21:17)
[2022-04-30] MEDS: TIOTROPIUM BROMIDE 2.5 MCG (SPIRIVA) RESPIMAT INHALER IH SCH ×2 (06:16→11:34)
[2022-04-30] MEDS ORDERED: ALBUTEROL SO4 2.5/IPRATROPIUM 0.5 INH SOL 3 ML VIAL.NEB. NEB ONE (08:19)
[2022-04-30] MEDS ORDERED: FUROSEMIDE 40 MG/4 ML INJECTABLE VIAL ONE (08:46)
[2022-04-30] MEDS ORDERED: CEFTRIAXONE 1 GM/50 ML BAG ONE (08:46)
[2022-04-30 08:52] LABS: INR 2.48 (0.83-1.09); PROTHROMBIN TIME (PATIENT) 28.8 SEC (9.7-13.0)
[2022-04-30 08:58] LABS: HEMATOCRIT 24.1 % (32.4-45.2); HEMOGLOBIN 7.3 GM/dL (10.7-15.3); MCH 22.8 pg (25.7-33.7); MCHC 30.4 g/dl (32.0-36.0); MEAN CELL VOLUME 75.2 fl (80-96); MEAN PLT VOLUME 7.9 fl (7.5-11.1); PLATELET COUNT 257 10^3/uL (134-434); RDW 19.9 % (11.6-15.6)
[2022-04-30] MEDS: CEFTRIAXONE 1 GM in DEXTROSE 5%-WATER - 50 ML IVPB SCH (09:00)
[2022-04-30] MEDS: FUROSEMIDE 40 MG/4 ML INJECTABLE VIAL IVPUSH SCH (09:00)
[2022-04-30 09:01] LABS: WHITE BLOOD COUNT 11.2 K/mm3 (4.0-10.0)
[2022-04-30] MEDS: ALBUTEROL SO4 2.5/IPRATROPIUM 0.5 INH SOL 3 ML VIAL.NEB. NEB SCH ×4 (09:07→20:55)
[2022-04-30 09:36] LABS: ALBUMIN 3.1 g/dl (3.4-5.0); BLOOD UREA NITROGEN 20.2 mg/dL (7-18); MAGNESIUM 2.4 mg/dL (1.8-2.4)
[2022-04-30 09:37] LABS: CALCIUM 8.5 mg/dL (8.5-10.1)
[2022-04-30 09:38] LABS: CREATININE 0.7 mg/dL (0.55-1.3); PHOSPHOROUS 3.1 mg/dL (2.5-4.9)
[2022-04-30 09:39] LABS: TOT PROT 6.6 g/dl (6.4-8.2)
[2022-04-30 09:42] LABS: BILIRUBIN,TOTAL 0.4 mg/dL (0.2-1)
[2022-04-30] MEDS ORDERED: methylPREDNISolone NA SUCC 40 MG/1 ML VIAL ONE (09:50)
[2022-04-30 09:51] LABS: ANISOCYTOSIS 2+; MACROCYTOSIS 1+
[2022-04-30] MEDS: methylPREDNISolone NA SUCC 40 MG/1 ML VIAL IVPUSH SCH (09:54)
[2022-04-30] MEDS ORDERED: VENLAFAXINE HCL 150 MG E.R. CAPSULE PO SCH (10:00)
[2022-04-30] MEDS ORDERED: ENOXAPARIN NA (PORCINE) 40 MG/0.4 ML DISP.SYRIN SQ SCH (10:00)
[2022-04-30] MEDS ORDERED: FOLIC ACID 1 MG TABLET (FP) ONE (11:23)
[2022-04-30] MEDS ORDERED: VENLAFAXINE HCL 75 MG TABLET ONE (11:23)
[2022-04-30] MEDS ORDERED: DOCUSATE SODIUM 100 MG CAPSULE (FP) PO ONE (11:23)
[2022-04-30] MEDS: FOLIC ACID 1 MG TABLET (FP) PO SCH (11:28)
[2022-04-30] MEDS: DOCUSATE SODIUM 100 MG CAPSULE (FP) PO SCH (11:29)
[2022-04-30] MEDS: VENLAFAXINE HCL 75 MG E.R. CAPSULES PO SCH (11:29)
[2022-04-30] MEDS: AZITHROMYCIN IVPB 250 MG in DEXTROSE 5%-WATER - 250 ML IVPB SCH (15:54)
[2022-04-30] MEDS: WARFARIN NA 1 MG TABLET PO SCH (18:53)
[2022-04-30] MEDS: ATORVASTATIN CA 20 MG TABLET (FP) PO SCH (21:16)
[2022-04-30] MEDS: MONTELUKAST NA 10 MG TABLET PO SCH (21:17)
[2022-04-30] MEDS: MIRTAZAPINE 15 MG TABLET (FP) PO SCH (22:32)
[2022-05-01] MEDS: ALBUTEROL SO4 2.5/IPRATROPIUM 0.5 INH SOL 3 ML VIAL.NEB. NEB SCH ×4 (08:35→20:35)
[2022-05-01] MEDS: DOCUSATE SODIUM 100 MG CAPSULE (FP) PO SCH (10:56)
[2022-05-01] MEDS: VENLAFAXINE HCL 75 MG E.R. CAPSULES PO SCH (10:57)
[2022-05-01] MEDS: LOSARTAN POTASSIUM 50 MG TABLET PO SCH (10:57)
[2022-05-01] MEDS: methylPREDNISolone NA SUCC 40 MG/1 ML VIAL IVPUSH SCH (10:58)
[2022-05-01] MEDS: METOPROLOL TARTRATE 50 MG TABLET (FP) PO SCH ×2 (10:58→21:41)
[2022-05-01] MEDS: AZITHROMYCIN IVPB 250 MG in DEXTROSE 5%-WATER - 250 ML IVPB SCH (10:58)
[2022-05-01] MEDS: FUROSEMIDE 40 MG/4 ML INJECTABLE VIAL IVPUSH SCH (10:58)
[2022-05-01] MEDS: TIOTROPIUM BROMIDE 2.5 MCG (SPIRIVA) RESPIMAT INHALER IH SCH (10:58)
[2022-05-01] MEDS: BUDESONIDE/FORMETEROL FUMARATE 80/4.5 mcg INHALER IH SCH ×2 (10:58→21:41)
[2022-05-01] MEDS: CEFTRIAXONE 1 GM in DEXTROSE 5%-WATER - 50 ML IVPB SCH (12:53)
[2022-05-01] MEDS: FOLIC ACID 1 MG TABLET (FP) PO SCH (12:53)
[2022-05-01 15:59] LABS: HEMATOCRIT 24.3 % (32.4-45.2); HEMOGLOBIN 7.4 GM/dL (10.7-15.3); MCH 22.6 pg (25.7-33.7); MCHC 30.6 g/dl (32.0-36.0); MEAN CELL VOLUME 73.8 fl (80-96); MEAN PLT VOLUME 7.1 fl (7.5-11.1); PLATELET COUNT 282 10^3/uL (134-434); RBC 3.29 M/mm3 (3.60-5.2); RDW 20.2 % (11.6-15.6); WHITE BLOOD COUNT 9.1 K/mm3 (4.0-10.0)
[2022-05-01 16:08] LABS: INR 3.55 (0.83-1.09); PROTHROMBIN TIME (PATIENT) 41.4 SEC (9.7-13.0)
[2022-05-01 16:20] LABS: CALCIUM 8.8 mg/dL (8.5-10.1)
[2022-05-01 16:21] LABS: ALBUMIN 3.1 g/dl (3.4-5.0); BLOOD UREA NITROGEN 34.6 mg/dL (7-18); MAGNESIUM 2.4 mg/dL (1.8-2.4)
[2022-05-01 16:24] LABS: CREATININE 1.1 mg/dL (0.55-1.3)
[2022-05-01 16:26] LABS: BILIRUBIN,TOTAL 0.4 mg/dL (0.2-1); TOT PROT 6.7 g/dl (6.4-8.2)
[2022-05-01 16:38] LABS: ANISOCYTOSIS 2+; MACROCYTOSIS 0
[2022-05-01] MEDS: WARFARIN NA 1 MG TABLET PO SCH (18:21)
[2022-05-01] MEDS: ATORVASTATIN CA 20 MG TABLET (FP) PO SCH (21:41)
[2022-05-01] MEDS: MIRTAZAPINE 15 MG TABLET (FP) PO SCH (21:41)
[2022-05-01] MEDS: MONTELUKAST NA 10 MG TABLET PO SCH (21:41)
[2022-05-02] MEDS: ALBUTEROL SO4 2.5/IPRATROPIUM 0.5 INH SOL 3 ML VIAL.NEB. NEB SCH ×4 (08:05→20:35)
[2022-05-02] MEDS: VENLAFAXINE HCL 75 MG E.R. CAPSULES PO SCH (09:55)
[2022-05-02] MEDS: DOCUSATE SODIUM 100 MG CAPSULE (FP) PO SCH (09:55)
[2022-05-02] MEDS: METOPROLOL TARTRATE 50 MG TABLET (FP) PO SCH ×2 (09:55→22:47)
[2022-05-02] MEDS: FOLIC ACID 1 MG TABLET (FP) PO SCH (09:55)
[2022-05-02] MEDS: LOSARTAN POTASSIUM 50 MG TABLET PO SCH (09:56)
[2022-05-02] MEDS: methylPREDNISolone NA SUCC 40 MG/1 ML VIAL IVPUSH SCH (09:56)
[2022-05-02] MEDS: FUROSEMIDE 40 MG/4 ML INJECTABLE VIAL IVPUSH SCH (09:56)
[2022-05-02] MEDS: BUDESONIDE/FORMETEROL FUMARATE 80/4.5 mcg INHALER IH SCH ×2 (09:57→22:47)
[2022-05-02] MEDS: TIOTROPIUM BROMIDE 2.5 MCG (SPIRIVA) RESPIMAT INHALER IH SCH (09:57)
[2022-05-02] MEDS: CEFTRIAXONE 1 GM in DEXTROSE 5%-WATER - 50 ML IVPB SCH (09:58)
[2022-05-02] MEDS: POLYETHYLENE GLYCOL (HEALTHYLAX) 3350 17 GM PACKET PO SCH ×2 (10:31→22:46)
[2022-05-02] MEDS: SENNOSIDES 8.6MG TABLET (FP) PO SCH ×2 (10:31→22:47)
[2022-05-02] MEDS ORDERED: MINERAL OIL 30 ML UNIT-DOSE CUP PO ONE (10:45)
[2022-05-02] MEDS ORDERED: BISACODYL 10 MG SUPP.RECT PR ONE (11:00)
[2022-05-02] MEDS ORDERED: SODIUM PHOSPHATE/NA BIPHOS 133 ML ENEMA RC PRN (13:46)
[2022-05-02 14:08] LABS: HEMATOCRIT 26.8 % (32.4-45.2); HEMOGLOBIN 8.2 GM/dL (10.7-15.3); MCH 22.6 pg (25.7-33.7); MCHC 30.5 g/dl (32.0-36.0); MEAN CELL VOLUME 73.9 fl (80-96); MEAN PLT VOLUME 7.3 fl (7.5-11.1); PLATELET COUNT 315 10^3/uL (134-434); RBC 3.63 M/mm3 (3.60-5.2); RDW 20.1 % (11.6-15.6); WHITE BLOOD COUNT 12.5 K/mm3 (4.0-10.0)
[2022-05-02 14:16] LABS: INR 2.28 (0.83-1.09); PROTHROMBIN TIME (PATIENT) 26.4 SEC (9.7-13.0)
[2022-05-02 14:26] LABS: CALCIUM 9.2 mg/dL (8.5-10.1)
[2022-05-02 14:27] LABS: BLOOD UREA NITROGEN 34.9 mg/dL (7-18); MAGNESIUM 2.4 mg/dL (1.8-2.4)
[2022-05-02 14:30] LABS: CREATININE 0.9 mg/dL (0.55-1.3)
[2022-05-02 14:44] LABS: ANISOCYTOSIS 2+; MACROCYTOSIS 0
[2022-05-02] MEDS ORDERED: DOCUSATE NA 100 MG/10 ML UNIT-DOSE CUPS PO PRN (17:15)
[2022-05-02] MEDS ORDERED: SODIUM PHOSPHATE/NA BIPHOS 133 ML ENEMA RC ONE (17:17)
[2022-05-02] MEDS ORDERED: SODIUM PHOSPHATE/NA BIPHOS 133 ML ENEMA PR ONE (17:17)
[2022-05-02] MEDS: WARFARIN NA 1 MG TABLET PO SCH (17:20)
[2022-05-02] MEDS ORDERED: DOCUSATE SODIUM 100 MG CAPSULE (FP) PO PRN (17:27)
[2022-05-02] MEDS: ATORVASTATIN CA 20 MG TABLET (FP) PO SCH (22:46)
[2022-05-02] MEDS: MONTELUKAST NA 10 MG TABLET PO SCH (22:47)
[2022-05-02] MEDS: MIRTAZAPINE 15 MG TABLET (FP) PO SCH (22:47)
[2022-05-03] MEDS: ALBUTEROL SO4 2.5/IPRATROPIUM 0.5 INH SOL 3 ML VIAL.NEB. NEB SCH ×4 (09:05→20:35)
[2022-05-03] MEDS: VENLAFAXINE HCL 75 MG E.R. CAPSULES PO SCH (09:53)
[2022-05-03] MEDS: METOPROLOL TARTRATE 50 MG TABLET (FP) PO SCH ×2 (09:53→21:13)
[2022-05-03] MEDS: LOSARTAN POTASSIUM 50 MG TABLET PO SCH (09:53)
[2022-05-03] MEDS: FOLIC ACID 1 MG TABLET (FP) PO SCH (09:53)
[2022-05-03] MEDS: POLYETHYLENE GLYCOL (HEALTHYLAX) 3350 17 GM PACKET PO SCH ×2 (09:54→21:12)
[2022-05-03] MEDS: methylPREDNISolone NA SUCC 40 MG/1 ML VIAL IVPUSH SCH (09:54)
[2022-05-03] MEDS: FUROSEMIDE 40 MG/4 ML INJECTABLE VIAL IVPUSH SCH (09:54)
[2022-05-03] MEDS: BUDESONIDE/FORMETEROL FUMARATE 80/4.5 mcg INHALER IH SCH ×2 (09:54→21:13)
[2022-05-03] MEDS: TIOTROPIUM BROMIDE 2.5 MCG (SPIRIVA) RESPIMAT INHALER IH SCH (09:54)
[2022-05-03] MEDS: CEFTRIAXONE 1 GM in DEXTROSE 5%-WATER - 50 ML IVPB SCH (09:54)
[2022-05-03] MEDS: SENNOSIDES 8.6MG TABLET (FP) PO SCH ×2 (09:54→21:14)
[2022-05-03] MEDS ORDERED: WITCH HAZEL 50% (TUCKS) 40 PAD/JAR PAD TP PRN (10:38)
[2022-05-03] MEDS: WARFARIN NA 1 MG TABLET PO SCH (17:03)
[2022-05-03] MEDS: MONTELUKAST NA 10 MG TABLET PO SCH (21:08)
[2022-05-03] MEDS: MIRTAZAPINE 15 MG TABLET (FP) PO SCH (21:09)
[2022-05-03] MEDS: ATORVASTATIN CA 20 MG TABLET (FP) PO SCH (21:10)
[2022-05-04] MEDS: ALBUTEROL SO4 2.5/IPRATROPIUM 0.5 INH SOL 3 ML VIAL.NEB. NEB SCH ×3 (08:53→15:32)
[2022-05-04] MEDS: FOLIC ACID 1 MG TABLET (FP) PO SCH (10:27)
[2022-05-04] MEDS: VENLAFAXINE HCL 75 MG E.R. CAPSULES PO SCH (10:28)
[2022-05-04] MEDS: METOPROLOL TARTRATE 50 MG TABLET (FP) PO SCH (10:28)
[2022-05-04] MEDS: methylPREDNISolone NA SUCC 40 MG/1 ML VIAL IVPUSH SCH (10:30)
[2022-05-04] MEDS: SENNOSIDES 8.6MG TABLET (FP) PO SCH (10:30)
[2022-05-04] MEDS: LOSARTAN POTASSIUM 50 MG TABLET PO SCH (10:30)
[2022-05-04] MEDS: POLYETHYLENE GLYCOL (HEALTHYLAX) 3350 17 GM PACKET PO SCH (10:30)
[2022-05-04] MEDS: CEFTRIAXONE 1 GM in DEXTROSE 5%-WATER - 50 ML IVPB SCH (10:31)
[2022-05-04] MEDS: TIOTROPIUM BROMIDE 2.5 MCG (SPIRIVA) RESPIMAT INHALER IH SCH (10:31)
[2022-05-04] MEDS: BUDESONIDE/FORMETEROL FUMARATE 80/4.5 mcg INHALER IH SCH (10:32)
[2022-05-04 10:35] LABS: BASO % 0.3 % (0-2.0); EOS % 1.6 % (0-4.5); HEMATOCRIT 27.9 % (32.4-45.2); HEMOGLOBIN 8.5 GM/dL (10.7-15.3); LYMPH % 18.7 % (8-40); MCH 22.5 pg (25.7-33.7); MCHC 30.4 g/dl (32.0-36.0); MEAN CELL VOLUME 73.9 fl (80-96); MONO % 11.1 % (3.8-10.2); NEUT % 68.3 % (42.8-82.8); PLATELET COUNT 388 10^3/uL (134-434); RBC 3.78 M/mm3 (3.60-5.2); RDW 19.9 % (11.6-15.6); WHITE BLOOD COUNT 11.6 K/mm3 (4.0-10.0)
[2022-05-04 10:36] LABS: INR 3.52 (0.83-1.09)
[2022-05-04] MEDS: FUROSEMIDE 40 MG/4 ML INJECTABLE VIAL IVPUSH SCH (11:53)
[2022-05-04 13:48] VITALS: BP 101/44; PULSE 64; RESP 17; TEMP 97.5
[2022-05-04] MEDS ORDERED: CEFUROXIME AXETIL 250 MG TABLET PO SCH (22:00)
[2022-05-04] MEDS ORDERED: CEFUROXIME AXETIL 500 MG TABLET PO SCH (22:00)
[2022-05-05] MEDS ORDERED: FUROSEMIDE 20 MG TABLET (FP) PO SCH (10:00)
== END 2022-05-04 16:10 | disposition home or self-care (01) | DRG 291 ==
LOC: JER 15:34 → JERBED 18:04 → J6W 04-30 12:13
PROVIDERS: ADMIT Internal Medicine; ATTEND Nurse Practitioner Family
DX: I13.0 Hypertensive heart and chronic kidney disease with heart failure and stage 1 through stage 4 chronic kidney disease, or unspecified chronic kidney disease (principal); I50.23 Acute on chronic systolic (congestive) heart failure; J18.9 Pneumonia, unspecified organism; J44.0 Chronic obstructive pulmonary disease with (acute) lower respiratory infection; J44.1 Chronic obstructive pulmonary disease with (acute) exacerbation; N39.0 Urinary tract infection, site not specified; R06.03 Acute respiratory distress; I25.119 Atherosclerotic heart disease of native coronary artery with unspecified angina pectoris; J20.9 Acute bronchitis, unspecified; E78.5 Hyperlipidemia, unspecified; K59.00 Constipation, unspecified; I48.91 Unspecified atrial fibrillation; B96.1 Klebsiella pneumoniae [K. pneumoniae] as the cause of diseases classified elsewhere; B95.2 Enterococcus as the cause of diseases classified elsewhere; N18.30 Chronic kidney disease, stage 3 unspecified; J44.9 Chronic obstructive pulmonary disease, unspecified; D53.9 Nutritional anemia, unspecified; R80.9 Proteinuria, unspecified; F41.9 Anxiety disorder, unspecified; Z95.1 Presence of aortocoronary bypass graft; Z95.2 Presence of prosthetic heart valve; Z95.810 Presence of automatic (implantable) cardiac defibrillator
CPT/HCPCS: 0241U-QW; 36415; 36600; 71045-TC-FY; 74018-TC-FY; 80048; 80053; 80061; 81003; 82570; 82728; 82803; 83036; 83540; 83550; 83605; 83735; 83880; 84100; 84156; 84443; 84484; 85025; 85610; 87040; 87086; 87186; 93005; 93010; 93306-TC; 93308; 94640; 94660; 97116-GP; 97162-GP; 99285-25

== ENCOUNTER 2022-05-19 07:21 | Inpatient (IN) | payer BC, OTHER ==
[2022-05-19] MEDS ORDERED: methylPREDNISolone NA SUCC 125 MG/2 ML VIAL IVPB ONE (07:24)
[2022-05-19] MEDS ORDERED: ALBUTEROL SO4 2.5/IPRATROPIUM 0.5 INH SOL 3 ML VIAL.NEB. NEB ONE (07:30)
[2022-05-19] MEDS ORDERED: MAGNESIUM SULF 50% (8.12 MEQ/2 ML-1 GM VIAL) IVPB ONE (07:30)
[2022-05-19] MEDS ORDERED: MAGNESIUM SULFATE IN WATER 2 GM/50 ML IVPB IVPB ONE (07:31)
[2022-05-19] MEDS ORDERED: methylPREDNISolone NA SUCC 125 MG/2 ML VIAL ONE (07:31)
[2022-05-19] MEDS ORDERED: ALBUTEROL SO4 0.083% IH SOL 2.5 MG/3 ML VIAL.NEB. NEB ONE (07:49)
[2022-05-19] MEDS: ALBUTEROL SO4 0.083% IH SOL 2.5 MG/3 ML VIAL.NEB. NEB PRN ×3 (07:57→08:38)
[2022-05-19 08:28] LABS: HEMATOCRIT 27.5 % (32.4-45.2); MCH 21.8 pg (25.7-33.7); MEAN CELL VOLUME 74.9 fl (80-96); MEAN PLT VOLUME 7.8 fl (7.5-11.1); PLATELET COUNT 431 10^3/uL (134-434); RBC 3.67 M/mm3 (3.60-5.2); WHITE BLOOD COUNT 21.1 K/mm3 (4.0-10.0)
[2022-05-19 08:31] LABS: VENOUS BASE EXCESS -5.5 mmol/L (-2-2)
[2022-05-19] MEDS ORDERED: PIPERACILLIN/TAZOB 3.375 GM 3.375 GM in DEXTROSE 5%-WATER - 50 ML IVPB ONE (08:37)
[2022-05-19 08:43] LABS: INR 3.09 (0.83-1.09); PROTHROMBIN TIME (PATIENT) 35.9 SEC (9.7-13.0)
[2022-05-19 08:44] LABS: CHLORIDE 108 mmol/L (98-107); SODIUM 144 mmol/L (136-145); VENOUS PCO2 81.8 mmHg (38-52); VENOUS PH 7.11 (7.310-7.410)
[2022-05-19 08:45] LABS: ACTIVATED PTT 31.5 SECONDS (25.2-36.5)
[2022-05-19 08:46] LABS: CALCIUM 8.6 mg/dL (8.5-10.1)
[2022-05-19] MEDS ORDERED: PIPERACILLIN/TAZOB 3.375 GM 3.375 GM/50 ML BAG IVPB ONE (08:46)
[2022-05-19 08:47] LABS: ALBUMIN 3.4 g/dl (3.4-5.0); ANION GAP 10 MMOL/L (8-16); BLOOD UREA NITROGEN 19.4 mg/dL (7-18); CO2 26 mmol/L (21-32); GLUCOSE,RANDOM 294 mg/dL (74-106)
[2022-05-19 08:50] LABS: SGOT/AST 34 U/L (15-37); SGPT/ALT 26 U/L (13-61)
[2022-05-19 08:52] LABS: BILIRUBIN,TOTAL 0.4 mg/dL (0.2-1); TOT PROT 6.8 g/dl (6.4-8.2)
[2022-05-19 08:53] LABS: ALK PHOS 55 U/L (45-117)
[2022-05-19 08:55] LABS: N-TERMINAL BNP 8385.7 pg/ml (5-450)
[2022-05-19 09:56] LABS: VENOUS O2 SATURATION 67.7 % (70-80); VENOUS PCO2 62.8 mmHg (38-52); VENOUS PH 7.233 (7.310-7.410)
[2022-05-19 10:18] LABS: ANISOCYTOSIS 3+; MACROCYTOSIS 0; OVALOCYTE 2+; TARGET CELLS 1+
[2022-05-19] MEDS ORDERED: ACETAMINOPHEN 325 MG TABLET (FP) PO PRN (11:37)
[2022-05-19] MEDS ORDERED: FUROSEMIDE 40 MG/4 ML INJECTABLE VIAL ONE (12:12)
[2022-05-19] MEDS: FUROSEMIDE 40 MG/4 ML INJECTABLE VIAL IVPUSH SCH (12:35)
[2022-05-19] MEDS ORDERED: FERROUS SO4 325 MG TABLET (FP) ONE (14:19)
[2022-05-19] MEDS: FERROUS SO4 325 MG TABLET (FP) PO SCH ×2 (14:26→21:18)
[2022-05-19] MEDS ORDERED: methylPREDNISolone NA SUCC 40 MG/1 ML VIAL ONE (14:29)
[2022-05-19] MEDS ORDERED: methylPREDNISolone NA SUCC 40 MG/1 ML VIAL IVPB SCH (15:00)
[2022-05-19] MEDS ORDERED: WARFARIN NA 1 MG TABLET PO SCH (18:00)
[2022-05-19] MEDS: PIPERACILLIN/TAZOB 3.375 GM 3.375 GM in DEXTROSE 5%-WATER - 50 ML IVPB SCH (18:30)
[2022-05-19] MEDS: ALBUTEROL SO4 2.5/IPRATROPIUM 0.5 INH SOL 3 ML VIAL.NEB. NEB SCH (20:55)
[2022-05-19 21:03] VITALS: BMI 22.7
[2022-05-19] MEDS: methylPREDNISolone NA SUCC 40 MG/1 ML VIAL IVPB SCH (21:13)
[2022-05-19] MEDS: METOPROLOL TARTRATE 50 MG TABLET (FP) PO SCH (21:13)
[2022-05-19] MEDS: MIRTAZAPINE 15 MG TABLET (FP) PO SCH (21:13)
[2022-05-19] MEDS: BUDESONIDE/FORMETEROL FUMARATE 80/4.5 mcg INHALER IH SCH (22:59)
[2022-05-20] MEDS: PIPERACILLIN/TAZOB 3.375 GM 3.375 GM in DEXTROSE 5%-WATER - 50 ML IVPB SCH ×3 (03:15→17:46)
[2022-05-20] MEDS ORDERED: FLU VACC QS2022-23(6MOS UP)/PF 60 MCG/0.5 ML SYRINGE IM ONE (03:20)
[2022-05-20] MEDS: FERROUS SO4 325 MG TABLET (FP) PO SCH ×4 (05:45→22:57)
[2022-05-20] MEDS: methylPREDNISolone NA SUCC 40 MG/1 ML VIAL IVPB SCH ×3 (06:07→22:41)
[2022-05-20 08:13] LABS: HEMATOCRIT 26.1 % (32.4-45.2); HEMOGLOBIN 7.7 GM/dL (10.7-15.3); MCH 21.6 pg (25.7-33.7); MCHC 29.5 g/dl (32.0-36.0); MEAN CELL VOLUME 73.2 fl (80-96); MEAN PLT VOLUME 7.2 fl (7.5-11.1); PLATELET COUNT 333 10^3/uL (134-434); RBC 3.57 M/mm3 (3.60-5.2); RDW 21.1 % (11.6-15.6); WHITE BLOOD COUNT 14.1 K/mm3 (4.0-10.0)
[2022-05-20] MEDS: ALBUTEROL SO4 2.5/IPRATROPIUM 0.5 INH SOL 3 ML VIAL.NEB. NEB SCH ×4 (08:20→19:49)
[2022-05-20 08:34] LABS: CHLORIDE 105 mmol/L (98-107); SODIUM 145 mmol/L (136-145)
[2022-05-20 08:37] LABS: ALBUMIN 3.1 g/dl (3.4-5.0); BLOOD UREA NITROGEN 25.1 mg/dL (7-18); CALCIUM 8.5 mg/dL (8.5-10.1); MAGNESIUM 2.6 mg/dL (1.8-2.4)
[2022-05-20 08:38] LABS: GLUCOSE,RANDOM 98 mg/dL (74-106)
[2022-05-20 08:40] LABS: SGPT/ALT 46 U/L (13-61)
[2022-05-20 08:41] LABS: ANION GAP 11 MMOL/L (8-16); CO2 29 mmol/L (21-32); CREATININE 0.7 mg/dL (0.55-1.3); SGOT/AST 53 U/L (15-37)
[2022-05-20 08:42] LABS: BILIRUBIN,TOTAL 0.6 mg/dL (0.2-1); TOT PROT 6.3 g/dl (6.4-8.2)
[2022-05-20 08:43] LABS: ALK PHOS 52 U/L (45-117)
[2022-05-20 09:43] LABS: ANISOCYTOSIS 2+; MACROCYTOSIS 0
[2022-05-20] MEDS ORDERED: LOSARTAN POTASSIUM 25 MG TABLET PO SCH (10:00)
[2022-05-20] MEDS: FUROSEMIDE 40 MG/4 ML INJECTABLE VIAL IVPUSH SCH (10:56)
[2022-05-20] MEDS: VENLAFAXINE HCL 75 MG E.R. CAPSULES PO SCH (10:56)
[2022-05-20] MEDS: METOPROLOL TARTRATE 50 MG TABLET (FP) PO SCH ×2 (10:57→22:41)
[2022-05-20] MEDS: PANTOPRAZOLE 40 MG TABLET PO SCH (10:57)
[2022-05-20] MEDS: DOCUSATE SODIUM 100 MG CAPSULE (FP) PO SCH (10:57)
[2022-05-20] MEDS: MONTELUKAST NA 10 MG TABLET PO SCH (10:57)
[2022-05-20] MEDS: FOLIC ACID 1 MG TABLET (FP) PO SCH (10:57)
[2022-05-20] MEDS: BUDESONIDE/FORMETEROL FUMARATE 80/4.5 mcg INHALER IH SCH ×2 (10:58→22:57)
[2022-05-20] MEDS: POLYETHYLENE GLYCOL (HEALTHYLAX) 3350 17 GM PACKET PO SCH (15:07)
[2022-05-20] MEDS ORDERED: WARFARIN NA 1 MG TABLET PO SCH (18:00)
[2022-05-20 18:38] LABS: INR 3.47 (0.83-1.09); PROTHROMBIN TIME (PATIENT) 40.4 SEC (9.7-13.0)
[2022-05-20] MEDS: MIRTAZAPINE 15 MG TABLET (FP) PO SCH (22:41)
[2022-05-20] MEDS: SENNOSIDES 8.6MG TABLET (FP) PO SCH (22:46)
[2022-05-21] MEDS: PIPERACILLIN/TAZOB 3.375 GM 3.375 GM in DEXTROSE 5%-WATER - 50 ML IVPB SCH ×3 (02:36→17:52)
[2022-05-21] MEDS: FERROUS SO4 325 MG TABLET (FP) PO SCH ×5 (06:59→22:00)
[2022-05-21] MEDS: methylPREDNISolone NA SUCC 40 MG/1 ML VIAL IVPB SCH ×2 (06:59→21:19)
[2022-05-21 07:28] LABS: HEMATOCRIT 23.2 % (32.4-45.2); MCH 21.5 pg (25.7-33.7); MCHC 29.2 g/dl (32.0-36.0); MEAN CELL VOLUME 73.5 fl (80-96); MEAN PLT VOLUME 7.3 fl (7.5-11.1); PLATELET COUNT 302 10^3/uL (134-434); RBC 3.15 M/mm3 (3.60-5.2); RDW 20.8 % (11.6-15.6); WHITE BLOOD COUNT 13.9 K/mm3 (4.0-10.0)
[2022-05-21 07:29] LABS: INR 2.81 (0.83-1.09); PROTHROMBIN TIME (PATIENT) 32.7 SEC (9.7-13.0)
[2022-05-21] MEDS: ALBUTEROL SO4 2.5/IPRATROPIUM 0.5 INH SOL 3 ML VIAL.NEB. NEB SCH ×4 (07:45→20:52)
[2022-05-21 07:48] LABS: ALBUMIN 2.9 g/dl (3.4-5.0); CALCIUM 8.6 mg/dL (8.5-10.1)
[2022-05-21 07:49] LABS: BLOOD UREA NITROGEN 38.4 mg/dL (7-18); MAGNESIUM 2.4 mg/dL (1.8-2.4)
[2022-05-21 07:51] LABS: PHOSPHOROUS 3.8 mg/dL (2.5-4.9)
[2022-05-21 07:52] LABS: TOT PROT 5.8 g/dl (6.4-8.2)
[2022-05-21 07:53] LABS: BILIRUBIN,TOTAL 0.5 mg/dL (0.2-1)
[2022-05-21 08:21] LABS: HEMOGLOBIN 6.8 GM/dL (10.7-15.3)
[2022-05-21] MEDS: MONTELUKAST NA 10 MG TABLET PO SCH (10:08)
[2022-05-21] MEDS: SACUBITRIL/VALSARTAN 24 MG-26 MG TABLET PO SCH ×2 (10:08→21:15)
[2022-05-21] MEDS: LACTOBACILLUS ACIDOPHILUS 1 TABLET PO SCH (10:08)
[2022-05-21] MEDS: PANTOPRAZOLE 40 MG TABLET PO SCH (10:08)
[2022-05-21] MEDS: FOLIC ACID 1 MG TABLET (FP) PO SCH (10:08)
[2022-05-21] MEDS: FUROSEMIDE 40 MG/4 ML INJECTABLE VIAL IVPUSH SCH (10:08)
[2022-05-21] MEDS: POLYETHYLENE GLYCOL (HEALTHYLAX) 3350 17 GM PACKET PO SCH (10:09)
[2022-05-21] MEDS: VENLAFAXINE HCL 75 MG E.R. CAPSULES PO SCH (10:09)
[2022-05-21] MEDS: DOCUSATE SODIUM 100 MG CAPSULE (FP) PO SCH (10:09)
[2022-05-21] MEDS: BUDESONIDE/FORMETEROL FUMARATE 80/4.5 mcg INHALER IH SCH ×2 (10:11→21:16)
[2022-05-21 10:24] LABS: ANISOCYTOSIS 1+; MACROCYTOSIS 0; OVALOCYTE 1+
[2022-05-21 10:38] LABS: HEMATOCRIT 23.7 % (32.4-45.2); MCH 21.5 pg (25.7-33.7); MCHC 29.5 g/dl (32.0-36.0); MEAN CELL VOLUME 72.9 fl (80-96); MEAN PLT VOLUME 7.4 fl (7.5-11.1); PLATELET COUNT 319 10^3/uL (134-434); RBC 3.25 M/mm3 (3.60-5.2); RDW 20.6 % (11.6-15.6)
[2022-05-21 11:13] LABS: ANISOCYTOSIS 0; MACROCYTOSIS 0
[2022-05-21] MEDS ORDERED: WARFARIN NA 1 MG TABLET PO SCH (18:00)
[2022-05-21] MEDS: SENNOSIDES 8.6MG TABLET (FP) PO SCH (21:15)
[2022-05-21] MEDS: MIRTAZAPINE 15 MG TABLET (FP) PO SCH (21:16)
[2022-05-22] MEDS: PIPERACILLIN/TAZOB 3.375 GM 3.375 GM in DEXTROSE 5%-WATER - 50 ML IVPB SCH ×3 (02:14→18:00)
[2022-05-22] MEDS: FERROUS SO4 325 MG TABLET (FP) PO SCH ×3 (06:16→21:25)
[2022-05-22 07:48] LABS: BASO % 0.1 % (0-2.0); HEMATOCRIT 29.8 % (32.4-45.2); HEMOGLOBIN 9.2 GM/dL (10.7-15.3); LYMPH % 5.2 % (8-40); MCH 23.2 pg (25.7-33.7); MCHC 30.7 g/dl (32.0-36.0); MEAN CELL VOLUME 75.4 fl (80-96); MEAN PLT VOLUME 7.5 fl (7.5-11.1); MONO % 4.5 % (3.8-10.2); NEUT % 90.2 % (42.8-82.8); PLATELET COUNT 307 10^3/uL (134-434); RBC 3.95 M/mm3 (3.60-5.2); RDW 21.2 % (11.6-15.6); WHITE BLOOD COUNT 14.8 K/mm3 (4.0-10.0)
[2022-05-22 07:51] LABS: INR 2.23 (0.83-1.09); PROTHROMBIN TIME (PATIENT) 25.9 SEC (9.7-13.0)
[2022-05-22 08:18] LABS: CALCIUM 8.7 mg/dL (8.5-10.1)
[2022-05-22 08:19] LABS: BLOOD UREA NITROGEN 35.1 mg/dL (7-18); MAGNESIUM 2.1 mg/dL (1.8-2.4)
[2022-05-22] MEDS: ALBUTEROL SO4 2.5/IPRATROPIUM 0.5 INH SOL 3 ML VIAL.NEB. NEB SCH ×4 (08:20→20:15)
[2022-05-22 08:21] LABS: BILIRUBIN,TOTAL 1.1 mg/dL (0.2-1); CREATININE 0.9 mg/dL (0.55-1.3); PHOSPHOROUS 3.7 mg/dL (2.5-4.9)
[2022-05-22] MEDS: FOLIC ACID 1 MG TABLET (FP) PO SCH (10:04)
[2022-05-22] MEDS: DOCUSATE SODIUM 100 MG CAPSULE (FP) PO SCH (10:04)
[2022-05-22] MEDS: PANTOPRAZOLE 40 MG TABLET PO SCH (10:04)
[2022-05-22] MEDS: VENLAFAXINE HCL 75 MG E.R. CAPSULES PO SCH (10:04)
[2022-05-22] MEDS: MONTELUKAST NA 10 MG TABLET PO SCH (10:04)
[2022-05-22] MEDS: SACUBITRIL/VALSARTAN 24 MG-26 MG TABLET PO SCH ×2 (10:04→21:24)
[2022-05-22] MEDS: POLYETHYLENE GLYCOL (HEALTHYLAX) 3350 17 GM PACKET PO SCH (10:05)
[2022-05-22] MEDS: FUROSEMIDE 40 MG/4 ML INJECTABLE VIAL IVPUSH SCH (10:05)
[2022-05-22] MEDS: BUDESONIDE/FORMETEROL FUMARATE 80/4.5 mcg INHALER IH SCH ×2 (10:05→21:23)
[2022-05-22] MEDS: methylPREDNISolone NA SUCC 40 MG/1 ML VIAL IVPB SCH ×2 (10:05→21:24)
[2022-05-22] MEDS: LACTOBACILLUS ACIDOPHILUS 1 TABLET PO SCH (10:05)
[2022-05-22] MEDS: SENNOSIDES 8.6MG TABLET (FP) PO SCH (21:24)
[2022-05-22] MEDS: MIRTAZAPINE 15 MG TABLET (FP) PO SCH (21:24)
[2022-05-23] MEDS: PIPERACILLIN/TAZOB 3.375 GM 3.375 GM in DEXTROSE 5%-WATER - 50 ML IVPB SCH ×2 (02:00→09:37)
[2022-05-23] MEDS: FERROUS SO4 325 MG TABLET (FP) PO SCH ×2 (06:30→14:29)
[2022-05-23] MEDS: ALBUTEROL SO4 2.5/IPRATROPIUM 0.5 INH SOL 3 ML VIAL.NEB. NEB SCH ×3 (07:55→15:13)
[2022-05-23 08:38] LABS: BASO % 0.2 % (0-2.0); HEMATOCRIT 34.4 % (32.4-45.2); HEMOGLOBIN 10.3 GM/dL (10.7-15.3); LYMPH % 6.3 % (8-40); MCH 22.7 pg (25.7-33.7); MCHC 29.9 g/dl (32.0-36.0); MEAN PLT VOLUME 7.5 fl (7.5-11.1); NEUT % 88.5 % (42.8-82.8); PLATELET COUNT 319 10^3/uL (134-434); RBC 4.52 M/mm3 (3.60-5.2); RDW 22.4 % (11.6-15.6)
[2022-05-23 08:41] LABS: INR 1.67 (0.83-1.09); PROTHROMBIN TIME (PATIENT) 19.3 SEC (9.7-13.0)
[2022-05-23 09:06] LABS: ALBUMIN 3.1 g/dl (3.4-5.0); BLOOD UREA NITROGEN 35.6 mg/dL (7-18); MAGNESIUM 2.1 mg/dL (1.8-2.4)
[2022-05-23 09:09] LABS: CREATININE 1.1 mg/dL (0.55-1.3)
[2022-05-23 09:10] LABS: BILIRUBIN,TOTAL 0.6 mg/dL (0.2-1); PHOSPHOROUS 4.2 mg/dL (2.5-4.9); TOT PROT 6.4 g/dl (6.4-8.2)
[2022-05-23] MEDS: DOCUSATE SODIUM 100 MG CAPSULE (FP) PO SCH (09:38)
[2022-05-23] MEDS: PANTOPRAZOLE 40 MG TABLET PO SCH (09:38)
[2022-05-23] MEDS: SACUBITRIL/VALSARTAN 24 MG-26 MG TABLET PO SCH (09:38)
[2022-05-23] MEDS: MONTELUKAST NA 10 MG TABLET PO SCH (09:38)
[2022-05-23] MEDS: LACTOBACILLUS ACIDOPHILUS 1 TABLET PO SCH (09:39)
[2022-05-23] MEDS: VENLAFAXINE HCL 75 MG E.R. CAPSULES PO SCH (09:39)
[2022-05-23] MEDS: BUDESONIDE/FORMETEROL FUMARATE 80/4.5 mcg INHALER IH SCH (09:39)
[2022-05-23] MEDS: FOLIC ACID 1 MG TABLET (FP) PO SCH (09:39)
[2022-05-23] MEDS: POLYETHYLENE GLYCOL (HEALTHYLAX) 3350 17 GM PACKET PO SCH (09:41)
[2022-05-23 09:46] LABS: ANISOCYTOSIS 1+; MACROCYTOSIS 0
[2022-05-23] MEDS ORDERED: FUROSEMIDE 40 MG TABLET (FP) PO SCH (10:00)
[2022-05-23] MEDS ORDERED: methylPREDNISolone NA SUCC 40 MG/1 ML VIAL IVPB SCH (10:00)
[2022-05-23] MEDS ORDERED: POLYETHYLENE GLYCOL (HEALTHYLAX) 3350 17 GM PACKET PO SCH (10:00)
[2022-05-23 11:44] VITALS: BP 107/45; RESP 20; TEMP 98.4
[2022-05-23 14:56] VITALS: PULSE 78
[2022-05-23] MEDS ORDERED: WARFARIN NA 1 MG TABLET PO SCH (18:00)
== END 2022-05-23 15:54 | disposition home or self-care (01) | DRG 189 ==
LOC: JER 07:21 → JERBED 08:38 → J4W 18:18
PROVIDERS: ADMIT Internal Medicine
PROC: 30233N1 Transfusion of Nonautologous Red Blood Cells into Peripheral Vein, Percutaneous Approach (ICD-10-PCS; principal; 2022-05-21)
DX: J96.22 Acute and chronic respiratory failure with hypercapnia (principal); J18.9 Pneumonia, unspecified organism; I50.23 Acute on chronic systolic (congestive) heart failure; J44.1 Chronic obstructive pulmonary disease with (acute) exacerbation; J45.901 Unspecified asthma with (acute) exacerbation; I13.0 Hypertensive heart and chronic kidney disease with heart failure and stage 1 through stage 4 chronic kidney disease, or unspecified chronic kidney disease; N17.9 Acute kidney failure, unspecified; J96.21 Acute and chronic respiratory failure with hypoxia; I50.9 Heart failure, unspecified; I48.0 Paroxysmal atrial fibrillation; E78.5 Hyperlipidemia, unspecified; I25.10 Atherosclerotic heart disease of native coronary artery without angina pectoris; F41.9 Anxiety disorder, unspecified; D72.829 Elevated white blood cell count, unspecified; D50.9 Iron deficiency anemia, unspecified; N18.30 Chronic kidney disease, stage 3 unspecified
CPT/HCPCS: 0241U-QW; 36415; 36430; 71045-TC-FY; 80053; 82272; 82550; 82728; 82803; 82962; 83540; 83550; 83735; 83880; 84100; 84484; 85025; 85045; 85610; 85730; 86850; 86900; 86901; 86922; 87040; 87899; 93005; 93010; 94640; 94660; 99291; P9058

== ENCOUNTER 2023-03-12 05:17 | Day surgery (SDC) | payer BC, OTHER ==
[2023-03-11 11:31] VITALS: BMI 23.8
[2023-03-12] MEDS ORDERED: LIDOCAINE HCL/PF 1% SDV 5ML VIAL ONE ×2 (07:28→17:23)
[2023-03-12] MEDS ORDERED: DEXAMETHASONE SOD PHOSPHATE 10 MG/1 ML VIAL ONE (07:28)
[2023-03-12] MEDS ORDERED: ACETAMINOPHEN 500 MG TABLET (FP) PO PRN (13:38)
[2023-03-12 17:07] LABS: INR 1.02 (0.83-1.09); PROTHROMBIN TIME (PATIENT) 11.8 SEC (9.7-13.0)
[2023-03-12] MEDS ORDERED: LIDOCAINE 1% P/F 10 MG/ML VIAL INF ONE (17:16)
[2023-03-12] MEDS ORDERED: IOHEXOL 180 MG/1 ML ML IJ ONE (17:17)
[2023-03-12] MEDS ORDERED: DEXAMETHASONE SOD PHOSPHATE 10 MG/1 ML VIAL IVPUSH ONE (17:17)
[2023-03-12 17:44] VITALS: BP 163/65; PULSE 61; RESP 18; TEMP 97.3
== END 2023-03-12 18:05 | disposition home or self-care (01) ==
LOC: JASU-SURG 05:17
PROVIDERS: ATTEND Pain Medicine Pain Medicine
PROC: 3E0R3BZ Introduction of Anesthetic Agent into Spinal Canal, Percutaneous Approach (ICD-10-PCS; 2023-03-12)
PROC: 3E0R33Z Introduction of Anti-inflammatory into Spinal Canal, Percutaneous Approach (ICD-10-PCS; principal; 2023-03-12 14:30)
DX: M54.16 Radiculopathy, lumbar region (principal)
CPT/HCPCS: 36415; 76000-TC-FY; 85610; J1100

== ENCOUNTER 2023-05-25 08:45 | Inpatient (IN) | payer BC, OTHER ==
[2023-05-25] MEDS ORDERED: ALBUTEROL SO4 2.5/IPRATROPIUM 0.5 INH SOL 3 ML VIAL.NEB. NEB ONE ×2 (09:26→11:10)
[2023-05-25] MEDS ORDERED: DEXAMETHASONE SOD PHOSPHATE 10 MG/1 ML VIAL IVPUSH ONE (10:14)
[2023-05-25 11:24] LABS: BASO % 0.5 % (0-2.0); EOS % 0.9 % (0-4.5); HEMATOCRIT 34.3 % (32.4-45.2); HEMOGLOBIN 10.9 GM/dL (10.7-15.3); LYMPH % 8.1 % (8-40); MCH 26.6 pg (25.7-33.7); MCHC 31.9 g/dl (32.0-36.0); MEAN CELL VOLUME 83.4 fl (80-96); MEAN PLT VOLUME 7.8 fl (7.5-11.1); NEUT % 82.5 % (42.8-82.8); PLATELET COUNT 241 10^3/uL (134-434); RBC 4.11 M/mm3 (3.60-5.2); RDW 18.2 % (11.6-15.6); WHITE BLOOD COUNT 14.4 K/mm3 (4.0-10.0)
[2023-05-25] MEDS ORDERED: DEXAMETHASONE SOD PHOSPHATE 10 MG/1 ML VIAL ONE (11:32)
[2023-05-25 11:42] LABS: POTASSIUM 4.5 mmol/L (3.5-5.1)
[2023-05-25 11:43] LABS: VENOUS BASE EXCESS 2.1 mmol/L (-2-2); VENOUS PCO2 65.2 mmHg (38-52); VENOUS PH 7.281 (7.310-7.410)
[2023-05-25 11:45] LABS: ALBUMIN 3.9 g/dl (3.4-5.0)
[2023-05-25 11:47] LABS: BLOOD UREA NITROGEN 23.8 mg/dL (7-18)
[2023-05-25 11:49] LABS: CREATININE 0.9 mg/dL (0.55-1.3)
[2023-05-25 11:50] LABS: BILIRUBIN,TOTAL 0.5 mg/dL (0.2-1); TOT PROT 7.3 g/dl (6.4-8.2)
[2023-05-25] MEDS ORDERED: FUROSEMIDE 40 MG/4 ML INJECTABLE VIAL IVPUSH ONE (13:24)
[2023-05-25] MEDS ORDERED: CEFTRIAXONE 1,000 MG in DEXTROSE 5%-WATER - 50 ML IVPB ONE (13:27)
[2023-05-25] MEDS ORDERED: AZITHROMYCIN IVPB 500 MG in DEXTROSE 5%-WATER - 250 ML IVPB ONE (13:27)
[2023-05-25] MEDS ORDERED: CEFTRIAXONE 1 GM/50 ML BAG ONE (13:33)
[2023-05-25] MEDS ORDERED: AZITHROMYCIN IVPB 500 MG/250 ML BAG IVPB ONE (13:33)
[2023-05-25] MEDS ORDERED: FUROSEMIDE 40 MG/4 ML INJECTABLE VIAL ONE (13:33)
[2023-05-25] MEDS ORDERED: ALBUTEROL SO4 0.083% IH SOL 2.5 MG/3 ML VIAL.NEB. NEB PRN (14:11)
[2023-05-25 16:01] VITALS: BMI 20.2
[2023-05-25 19:00] LABS: INR 1.89 (0.83-1.09); PROTHROMBIN TIME (PATIENT) 21.8 SEC (9.7-13.0)
[2023-05-25] MEDS: WARFARIN NA 1 MG TABLET PO SCH (19:38)
[2023-05-25] MEDS: MIRTAZAPINE 15 MG TABLET (FP) PO SCH (21:30)
[2023-05-25] MEDS: SACUBITRIL/VALSARTAN 24 MG-26 MG TABLET PO SCH (21:30)
[2023-05-26 09:45] LABS: INR 1.78 (0.83-1.09); PROTHROMBIN TIME (PATIENT) 20.5 SEC (9.7-13.0)
[2023-05-26] MEDS: FUROSEMIDE 40 MG/4 ML INJECTABLE VIAL IVPUSH SCH (10:10)
[2023-05-26] MEDS: SACUBITRIL/VALSARTAN 24 MG-26 MG TABLET PO SCH ×2 (10:10→21:56)
[2023-05-26] MEDS: CEFTRIAXONE 1 GM in DEXTROSE 5%-WATER - 50 ML IVPB SCH (11:19)
[2023-05-26] MEDS: LORATADINE 10 MG TABLET PO SCH (11:19)
[2023-05-26] MEDS: FLUTICASONE/UMECLIDIN/VILANTER(200-62.5-25 TRELEGY ELLIPTA) INAHLER IH SCH (11:38)
[2023-05-26] MEDS: PANTOPRAZOLE 40 MG TABLET PO SCH (12:59)
[2023-05-26] MEDS: ALBUTEROL SO4 0.083% IH SOL 2.5 MG/3 ML VIAL.NEB. NEB SCH ×2 (13:58→20:45)
[2023-05-26 15:24] LABS: POTASSIUM 4.1 mmol/L (3.5-5.1)
[2023-05-26 15:26] LABS: CALCIUM 9.3 mg/dL (8.5-10.1)
[2023-05-26 15:27] LABS: ALBUMIN 3.4 g/dl (3.4-5.0); BLOOD UREA NITROGEN 32.7 mg/dL (7-18)
[2023-05-26 15:30] LABS: CREATININE 1.2 mg/dL (0.55-1.3)
[2023-05-26 15:31] LABS: BILIRUBIN,TOTAL 0.2 mg/dL (0.2-1); TOT PROT 6.6 g/dl (6.4-8.2)
[2023-05-26] MEDS: WARFARIN NA 1 MG TABLET PO SCH (18:33)
[2023-05-26] MEDS: MIRTAZAPINE 15 MG TABLET (FP) PO SCH (21:56)
[2023-05-27] MEDS: ALBUTEROL SO4 0.083% IH SOL 2.5 MG/3 ML VIAL.NEB. NEB SCH ×3 (07:15→20:57)
[2023-05-27 10:08] LABS: BASO % 0.5 % (0-2.0); EOS % 0.9 % (0-4.5); HEMATOCRIT 34.6 % (32.4-45.2); HEMOGLOBIN 10.6 GM/dL (10.7-15.3); MCH 25.8 pg (25.7-33.7); MCHC 30.7 g/dl (32.0-36.0); MEAN CELL VOLUME 83.9 fl (80-96); MEAN PLT VOLUME 7.7 fl (7.5-11.1); MONO % 8.1 % (3.8-10.2); NEUT % 81.5 % (42.8-82.8); PLATELET COUNT 325 10^3/uL (134-434); RBC 4.13 M/mm3 (3.60-5.2); WHITE BLOOD COUNT 15.3 K/mm3 (4.0-10.0)
[2023-05-27] MEDS: CEFTRIAXONE 1 GM in DEXTROSE 5%-WATER - 50 ML IVPB SCH (10:12)
[2023-05-27] MEDS: LORATADINE 10 MG TABLET PO SCH (10:13)
[2023-05-27] MEDS: PANTOPRAZOLE 40 MG TABLET PO SCH (10:13)
[2023-05-27] MEDS: FUROSEMIDE 40 MG/4 ML INJECTABLE VIAL IVPUSH SCH (10:14)
[2023-05-27] MEDS: SACUBITRIL/VALSARTAN 24 MG-26 MG TABLET PO SCH ×2 (10:14→21:58)
[2023-05-27] MEDS: FLUTICASONE/UMECLIDIN/VILANTER(200-62.5-25 TRELEGY ELLIPTA) INAHLER IH SCH (10:15)
[2023-05-27 10:29] LABS: POTASSIUM 3.7 mmol/L (3.5-5.1)
[2023-05-27 10:33] LABS: CALCIUM 9.4 mg/dL (8.5-10.1)
[2023-05-27 10:34] LABS: ALBUMIN 3.2 g/dl (3.4-5.0); BLOOD UREA NITROGEN 34.8 mg/dL (7-18)
[2023-05-27 10:36] LABS: CREATININE 1.1 mg/dL (0.55-1.3)
[2023-05-27 10:38] LABS: BILIRUBIN,TOTAL 0.4 mg/dL (0.2-1); TOT PROT 6.2 g/dl (6.4-8.2)
[2023-05-27] MEDS: POLYETHYLENE GLYCOL (HEALTHYLAX) 3350 17 GM PACKET PO SCH ×3 (13:44→22:07)
[2023-05-27 15:44] VITALS: RESP 20
[2023-05-27 17:26] LABS: INR 1.72 (0.83-1.09); PROTHROMBIN TIME (PATIENT) 19.9 SEC (9.7-13.0)
[2023-05-27] MEDS: WARFARIN NA 1 MG TABLET PO SCH (18:24)
[2023-05-27] MEDS: MIRTAZAPINE 15 MG TABLET (FP) PO SCH (21:58)
[2023-05-28] MEDS: ALBUTEROL SO4 0.083% IH SOL 2.5 MG/3 ML VIAL.NEB. NEB SCH ×2 (08:55→14:56)
[2023-05-28 09:15] LABS: BASO % 0.4 % (0-2.0); EOS % 1.3 % (0-4.5); HEMATOCRIT 36.9 % (32.4-45.2); HEMOGLOBIN 11.3 GM/dL (10.7-15.3); MCH 25.7 pg (25.7-33.7); MCHC 30.6 g/dl (32.0-36.0); MEAN CELL VOLUME 84.1 fl (80-96); MEAN PLT VOLUME 7.8 fl (7.5-11.1); MONO % 8.6 % (3.8-10.2); NEUT % 80.7 % (42.8-82.8); PLATELET COUNT 340 10^3/uL (134-434); RBC 4.38 M/mm3 (3.60-5.2); RDW 18.7 % (11.6-15.6); WHITE BLOOD COUNT 13.9 K/mm3 (4.0-10.0)
[2023-05-28 10:01] LABS: POTASSIUM 4.1 mmol/L (3.5-5.1)
[2023-05-28] MEDS: POLYETHYLENE GLYCOL (HEALTHYLAX) 3350 17 GM PACKET PO SCH (10:08)
[2023-05-28] MEDS: CEFTRIAXONE 1 GM in DEXTROSE 5%-WATER - 50 ML IVPB SCH (10:12)
[2023-05-28] MEDS: PANTOPRAZOLE 40 MG TABLET PO SCH (10:13)
[2023-05-28] MEDS: FUROSEMIDE 40 MG/4 ML INJECTABLE VIAL IVPUSH SCH (10:13)
[2023-05-28] MEDS: SACUBITRIL/VALSARTAN 24 MG-26 MG TABLET PO SCH (10:13)
[2023-05-28] MEDS: LORATADINE 10 MG TABLET PO SCH (10:13)
[2023-05-28 10:14] LABS: ALBUMIN 3.2 g/dl (3.4-5.0); CALCIUM 9.1 mg/dL (8.5-10.1)
[2023-05-28] MEDS: FLUTICASONE/UMECLIDIN/VILANTER(200-62.5-25 TRELEGY ELLIPTA) INAHLER IH SCH (10:14)
[2023-05-28 10:15] LABS: BLOOD UREA NITROGEN 39.9 mg/dL (7-18)
[2023-05-28 10:18] LABS: CREATININE 1.2 mg/dL (0.55-1.3)
[2023-05-28 10:19] LABS: BILIRUBIN,TOTAL 0.5 mg/dL (0.2-1)
[2023-05-28 10:21] LABS: TOT PROT 6.3 g/dl (6.4-8.2)
[2023-05-28 14:14] VITALS: BP 119/57; PULSE 100; TEMP 98.5
== END 2023-05-28 15:45 | disposition home or self-care (01) | DRG 291 ==
LOC: JER 08:45 → JERBED 13:31 → J7W 15:37
PROVIDERS: ADMIT Internal Medicine
DX: I13.0 Hypertensive heart and chronic kidney disease with heart failure and stage 1 through stage 4 chronic kidney disease, or unspecified chronic kidney disease (principal); I50.23 Acute on chronic systolic (congestive) heart failure; J96.21 Acute and chronic respiratory failure with hypoxia; J44.1 Chronic obstructive pulmonary disease with (acute) exacerbation; N18.30 Chronic kidney disease, stage 3 unspecified; I25.10 Atherosclerotic heart disease of native coronary artery without angina pectoris; E78.5 Hyperlipidemia, unspecified; I48.91 Unspecified atrial fibrillation; K21.9 Gastro-esophageal reflux disease without esophagitis; M06.9 Rheumatoid arthritis, unspecified; F41.9 Anxiety disorder, unspecified; F39 Unspecified mood [affective] disorder; Z95.1 Presence of aortocoronary bypass graft; Z95.2 Presence of prosthetic heart valve; Z99.81 Dependence on supplemental oxygen
CPT/HCPCS: 0241U-QW; 36415; 71045-TC-FY; 80053; 82803; 83880; 85025; 85610; 87040; 87899; 93005; 93010; 94640; 94660; 94761; 97116-GP; 97161-GP; 99285-25; J1100

== ENCOUNTER 2023-10-01 04:27 | Day surgery (SDC) | payer OTHER ==
[2023-09-26 13:41] VITALS: BMI 23.6
[2023-10-01] MEDS ORDERED: LIDOCAINE HCL/PF 1% SDV 5ML VIAL ONE (07:40)
[2023-10-01 12:39] VITALS: TEMP 97.5
[2023-10-01] MEDS ORDERED: ACETAMINOPHEN 500 MG TABLET (FP) PO PRN (12:40)
[2023-10-01] MEDS ORDERED: LIDOCAINE HCL/PF 2% SDV 5ML VIAL ONE (13:40)
[2023-10-01 14:00] LABS: ACTIVATED PTT 37.6 SECONDS (25.2-36.5); PROTHROMBIN TIME (PATIENT) 22.1 SEC (9.7-13.0)
[2023-10-01] MEDS: LIDOCAINE HCL/PF 2% SDV 5ML VIAL INF ONE ×2 (14:15)
[2023-10-01 15:46] VITALS: RESP 18
[2023-10-01 16:04] VITALS: BP 112/42; PULSE 68
== END 2023-10-01 16:00 | disposition home or self-care (01) ==
LOC: JASU-SURG 04:27
PROVIDERS: ATTEND Pain Medicine Pain Medicine
PROC: 015 Peripheral Nervous System, Destruction (ICD-10-PCS; principal; 2023-10-01 13:45)
DX: M25.512 Pain in left shoulder (principal)
CPT/HCPCS: 36415; 85610; 85730

== ENCOUNTER 2023-12-04 14:39 | Inpatient (IN) | payer OTHER ==
[2023-12-04 14:47] VITALS: BMI 24.8
[2023-12-04] MEDS ORDERED: ACETAMINOPHEN INJECTION 100 ML IVPB ONE (16:17)
[2023-12-04] MEDS: ACETAMINOPHEN 1000 MG/100 ML BAG IVPB ONE (16:50)
[2023-12-04 16:56] LABS: BASO % 0.7 % (0-2.0); EOS % 0.4 % (0-4.5); HEMATOCRIT 36.6 % (32.4-45.2); HEMOGLOBIN 11.5 GM/dL (10.7-15.3); LYMPH % 7.2 % (8-40); MCH 26.2 pg (25.7-33.7); MCHC 31.3 g/dl (32.0-36.0); MEAN CELL VOLUME 83.7 fl (80-96); MONO % 8.1 % (3.8-10.2); NEUT % 83.6 % (42.8-82.8); PLATELET COUNT 312 10^3/uL (134-434); RBC 4.38 M/mm3 (3.60-5.2); RDW 18.8 % (11.6-15.6); WHITE BLOOD COUNT 15.9 K/mm3 (4.0-10.0)
[2023-12-04 18:06] LABS: ACTIVATED PTT 33.4 SECONDS (25.2-36.5); INR 2.19 (0.83-1.09); PROTHROMBIN TIME (PATIENT) 24.2 SEC (9.7-13.0)
[2023-12-04 18:06] LABS: EPI CELLS >36 /uL (0-25.1); HYALINE CASTS 9 /uL (0-3.1); PH,URINE 5.5 (5.0-8.0); URINE APPEARANCE CLEAR; URINE BACTERIA 62 /uL (0-1359); URINE BILIRUBIN 2+ (NEGATIVE); URINE COLOR DK YELLOW; URINE GLUCOSE (UA) NEGATIVE (NEGATIVE); URINE KETONE 1+ (NEGATIVE); URINE LEUK ESTERASE NEGATIVE (NEGATIVE); URINE NITRITE NEGATIVE (NEGATIVE); URINE PROTEIN 1+ (NEGATIVE); URINE RBC 34 /uL (0-23.9); URINE WBC 25 /uL (0-25.8)
[2023-12-04 18:11] LABS: POTASSIUM 4.5 mmol/L (3.5-5.1)
[2023-12-04 18:14] LABS: CALCIUM 9.3 mg/dL (8.5-10.1)
[2023-12-04 18:15] LABS: BLOOD UREA NITROGEN 29.9 mg/dL (7-18)
[2023-12-04 18:18] LABS: CREATININE 1.5 mg/dL (0.55-1.3)
[2023-12-04 18:19] LABS: BILIRUBIN,TOTAL 0.9 mg/dL (0.2-1); TOT PROT 6.3 g/dl (6.4-8.2)
[2023-12-04] MEDS ORDERED: PIPERACILLIN/TAZOB 4.5 GM 4.5 GM/100 ML BAG IVPB ONE (20:07)
[2023-12-04] MEDS: SODIUM CHLORIDE 0.9% 500 ML INFUS.BAG IV ONE (20:31)
[2023-12-04] MEDS: PIPERACILLIN/TAZOB 4.5 GM 4.5 GM in DEXTROSE 5%-WATER 100 ML IVPB ONE (20:31)
[2023-12-04] MEDS ORDERED: ACETAMINOPHEN 325 MG TABLET (FP) PO PRN (22:51)
[2023-12-05] MEDS: LACTATED RINGERS SOLUTION 1,000 ML/1,000 ML INFUS.BAG IV SCH ×4 (01:15→16:21)
[2023-12-05] MEDS: PIPERACILLIN/TAZOB 2.25 GM 2.25 GM in DEXTROSE 5%-WATER - 50 ML IVPB SCH (01:24)
[2023-12-05] MEDS: ACETAMINOPHEN 1000 MG/100 ML BAG IVPB PRN (02:54)
[2023-12-05] MEDS: morphine CARPU-JECT 4 MG/1 ML DISP.SYRIN IVPUSH ONE (09:19)
[2023-12-05] MEDS ORDERED: CEFTRIAXONE 1 GM in DEXTROSE 5%-WATER - 50 ML IVPB SCH (10:00)
[2023-12-05] MEDS: METOPROLOL TARTRATE 25 MG TABLET (FP) PO SCH (11:17)
[2023-12-05 11:22] LABS: HEMATOCRIT 33.9 % (32.4-45.2); HEMOGLOBIN 10.9 GM/dL (10.7-15.3); MCH 26.4 pg (25.7-33.7); MEAN CELL VOLUME 82.5 fl (80-96); MEAN PLT VOLUME 7.5 fl (7.5-11.1); PLATELET COUNT 275 10^3/uL (134-434); RBC 4.12 M/mm3 (3.60-5.2); RDW 17.9 % (11.6-15.6); WHITE BLOOD COUNT 12.6 K/mm3 (4.0-10.0)
[2023-12-05 11:28] LABS: INR 2.43 (0.83-1.09); PROTHROMBIN TIME (PATIENT) 26.8 SEC (9.7-13.0)
[2023-12-05 11:42] LABS: POTASSIUM 3.6 mmol/L (3.5-5.1)
[2023-12-05 11:44] LABS: ALBUMIN 2.6 g/dl (3.4-5.0); CALCIUM 8.4 mg/dL (8.5-10.1); MAGNESIUM 2.5 mg/dL (1.8-2.4)
[2023-12-05 11:48] LABS: CREATININE 1.4 mg/dL (0.55-1.3)
[2023-12-05 11:49] LABS: TOT PROT 5.9 g/dl (6.4-8.2)
[2023-12-05 11:50] LABS: BILIRUBIN,TOTAL 0.8 mg/dL (0.2-1)
[2023-12-05] MEDS: FLUTICASONE/UMECLIDIN/VILANTER(200-62.5-25 TRELEGY ELLIPTA) INAHLER IH SCH (16:14)
[2023-12-05] MEDS: SODIUM PHOSPHATE/NA BIPHOS 133 ML ENEMA RC ONE (16:44)
[2023-12-05] MEDS ORDERED: WARFARIN NA 1 MG TABLET PO SCH (18:00)
[2023-12-05] MEDS ORDERED: DEXTROSE 50%-WATER - 25 GM/50 ML VIAL IVPUSH PRN (18:04)
[2023-12-05] MEDS: ATORVASTATIN CA 20 MG TABLET (FP) PO SCH (21:57)
[2023-12-06 08:40] LABS: INR 2.77 (0.83-1.09); PROTHROMBIN TIME (PATIENT) 30.4 SEC (9.7-13.0)
[2023-12-06 08:43] LABS: BASO % 1.1 % (0-2.0); EOS % 2.2 % (0-4.5); HEMATOCRIT 32.8 % (32.4-45.2); HEMOGLOBIN 10.6 GM/dL (10.7-15.3); MCH 26.9 pg (25.7-33.7); MCHC 32.4 g/dl (32.0-36.0); MEAN PLT VOLUME 7.5 fl (7.5-11.1); MONO % 8.9 % (3.8-10.2); NEUT % 78.8 % (42.8-82.8); PLATELET COUNT 280 10^3/uL (134-434); RBC 3.95 M/mm3 (3.60-5.2); RDW 18.6 % (11.6-15.6); WHITE BLOOD COUNT 8.4 K/mm3 (4.0-10.0)
[2023-12-06 08:51] LABS: POTASSIUM 3.4 mmol/L (3.5-5.1)
[2023-12-06 08:56] LABS: MAGNESIUM 2.2 mg/dL (1.8-2.4)
[2023-12-06 09:00] LABS: ALBUMIN 2.4 g/dl (3.4-5.0); BLOOD UREA NITROGEN 17.3 mg/dL (7-18); CALCIUM 8.3 mg/dL (8.5-10.1)
[2023-12-06 09:04] LABS: BILIRUBIN,TOTAL 0.6 mg/dL (0.2-1)
[2023-12-06 09:05] LABS: TOT PROT 5.4 g/dl (6.4-8.2)
[2023-12-06] MEDS: PIPERACILLIN/TAZOB 2.25 GM 2.25 GM in DEXTROSE 5%-WATER - 50 ML IVPB SCH (17:35)
[2023-12-06] MEDS: PIPERACILLIN/TAZOB 3.375 GM 3.375 GM in DEXTROSE 5%-WATER - 50 ML IVPB SCH (17:40)
[2023-12-06] MEDS: POTASSIUM CHLORIDE ORAL LIQUID 20 MEQ/15 ML PO ONE (17:40)
[2023-12-07] MEDS: LACTATED RINGERS SOLUTION 1,000 ML/1,000 ML INFUS.BAG IV SCH (01:52)
[2023-12-07 09:15] LABS: INR 2.43 (0.83-1.09); PROTHROMBIN TIME (PATIENT) 26.8 SEC (9.7-13.0)
[2023-12-07 09:21] LABS: HEMATOCRIT 32.7 % (32.4-45.2); HEMOGLOBIN 10.6 GM/dL (10.7-15.3); MCHC 32.6 g/dl (32.0-36.0); MEAN CELL VOLUME 82.9 fl (80-96); MEAN PLT VOLUME 7.5 fl (7.5-11.1); PLATELET COUNT 287 10^3/uL (134-434); RBC 3.94 M/mm3 (3.60-5.2); RDW 18.3 % (11.6-15.6); WHITE BLOOD COUNT 8.8 K/mm3 (4.0-10.0)
[2023-12-07 09:57] LABS: POTASSIUM 4.5 mmol/L (3.5-5.1)
[2023-12-07] MEDS ORDERED: DULoxetine HCL 20 MG CAPSULE.DR PO SCH (10:00)
[2023-12-07 10:01] LABS: CALCIUM 8.3 mg/dL (8.5-10.1)
[2023-12-07 10:02] LABS: BLOOD UREA NITROGEN 13.5 mg/dL (7-18); MAGNESIUM 1.9 mg/dL (1.8-2.4)
[2023-12-07 10:03] LABS: ALBUMIN 2.3 g/dl (3.4-5.0)
[2023-12-07 10:07] LABS: CREATININE 0.9 mg/dL (0.55-1.3); TOT PROT 5.2 g/dl (6.4-8.2)
[2023-12-07 10:08] LABS: PHOSPHOROUS 2.2 mg/dL (2.5-4.9)
[2023-12-07 10:09] LABS: BILIRUBIN,TOTAL 0.4 mg/dL (0.2-1)
[2023-12-07] MEDS: METOPROLOL TARTRATE 25 MG TABLET (FP) PO SCH (10:56)
[2023-12-07] MEDS: traMADol HCL 50 MG TABLET PO PRN (16:36)
[2023-12-07] MEDS ORDERED: WARFARIN NA 2 MG TABLET PO SCH (18:00)
[2023-12-08 10:23] LABS: BASO % 0.5 % (0-2.0); EOS % 2.3 % (0-4.5); HEMATOCRIT 33.4 % (32.4-45.2); HEMOGLOBIN 10.9 GM/dL (10.7-15.3); MCH 26.9 pg (25.7-33.7); MCHC 32.7 g/dl (32.0-36.0); MEAN CELL VOLUME 82.5 fl (80-96); MEAN PLT VOLUME 7.2 fl (7.5-11.1); MONO % 10.4 % (3.8-10.2); NEUT % 75.8 % (42.8-82.8); PLATELET COUNT 343 10^3/uL (134-434); RBC 4.05 M/mm3 (3.60-5.2); RDW 17.8 % (11.6-15.6); WHITE BLOOD COUNT 9.4 K/mm3 (4.0-10.0)
[2023-12-08 10:44] LABS: POTASSIUM 4.1 mmol/L (3.5-5.1)
[2023-12-08 10:56] LABS: ALBUMIN 2.5 g/dl (3.4-5.0); BLOOD UREA NITROGEN 11.9 mg/dL (7-18); CALCIUM 8.5 mg/dL (8.5-10.1)
[2023-12-08 11:00] LABS: CREATININE 0.8 mg/dL (0.55-1.3)
[2023-12-08 11:02] LABS: BILIRUBIN,TOTAL 0.6 mg/dL (0.2-1); TOT PROT 5.8 g/dl (6.4-8.2)
[2023-12-09 09:44] VITALS: BP 104/54; PULSE 92; RESP 19; TEMP 98.4
== END 2023-12-09 13:15 | disposition home or self-care (01) | DRG 392 ==
LOC: JER 14:39 → JERBED 19:43 → J5S 21:07
PROVIDERS: ADMIT Internal Medicine; ATTEND Internal Medicine
DX: K57.32 Diverticulitis of large intestine without perforation or abscess without bleeding (principal); I50.22 Chronic systolic (congestive) heart failure; I13.0 Hypertensive heart and chronic kidney disease with heart failure and stage 1 through stage 4 chronic kidney disease, or unspecified chronic kidney disease; N17.9 Acute kidney failure, unspecified; J44.9 Chronic obstructive pulmonary disease, unspecified; Z99.81 Dependence on supplemental oxygen; I25.2 Old myocardial infarction; Z95.2 Presence of prosthetic heart valve; F32.A Depression, unspecified; I25.10 Atherosclerotic heart disease of native coronary artery without angina pectoris; Z95.1 Presence of aortocoronary bypass graft; I48.0 Paroxysmal atrial fibrillation; N18.9 Chronic kidney disease, unspecified; I95.9 Hypotension, unspecified; N76.0 Acute vaginitis; E86.0 Dehydration; Z79.01 Long term (current) use of anticoagulants; K64.9 Unspecified hemorrhoids
CPT/HCPCS: 36415; 74176-TC; 76830-TC; 80048; 80053; 81003; 82962; 83605; 83735; 84100; 85025; 85027; 85610; 85730; 86140; 87086; 93005; 93010; 99285-25; J0131

== ENCOUNTER 2023-12-12 10:17 | Inpatient (IN) | payer OTHER ==
[2023-12-12] MEDS ORDERED: ALBUTEROL SO4 2.5/IPRATROPIUM 0.5 INH SOL 3 ML VIAL.NEB. NEB ONE (10:47)
[2023-12-12] MEDS: DEXAMETHASONE SOD PHOSPHATE 10 MG/1 ML VIAL IVPB ONE (11:12)
[2023-12-12] MEDS: ALBUTEROL SO4 2.5/IPRATROPIUM 0.5 INH SOL 3 ML VIAL.NEB. NEB SCH (11:12)
[2023-12-12] MEDS ORDERED: DEXAMETHASONE SOD PHOSPHATE 10 MG/1 ML VIAL ONE (11:19)
[2023-12-12 11:49] LABS: BASO % 0.6 % (0-2.0); EOS % 0.4 % (0-4.5); HEMATOCRIT 34.2 % (32.4-45.2); HEMOGLOBIN 10.7 GM/dL (10.7-15.3); LYMPH % 4.4 % (8-40); MCH 26.3 pg (25.7-33.7); MCHC 31.2 g/dl (32.0-36.0); MEAN CELL VOLUME 84.5 fl (80-96); MEAN PLT VOLUME 7.1 fl (7.5-11.1); MONO % 7.3 % (3.8-10.2); NEUT % 87.3 % (42.8-82.8); PLATELET COUNT 425 10^3/uL (134-434); RBC 4.05 M/mm3 (3.60-5.2); RDW 18.1 % (11.6-15.6); VENOUS BASE EXCESS -2.9 mmol/L (-2-2); VENOUS O2 SATURATION 86.9 % (70-80); VENOUS PCO2 40.9 mmHg (38-52); VENOUS PH 7.356 (7.310-7.410); WHITE BLOOD COUNT 22.2 K/mm3 (4.0-10.0)
[2023-12-12 12:14] LABS: POTASSIUM 5.3 mmol/L (3.5-5.1)
[2023-12-12 12:20] LABS: BLOOD UREA NITROGEN 13.2 mg/dL (7-18); CALCIUM 8.9 mg/dL (8.5-10.1); MAGNESIUM 1.9 mg/dL (1.8-2.4)
[2023-12-12 12:24] LABS: CREATININE 1.2 mg/dL (0.55-1.3)
[2023-12-12 12:25] LABS: BILIRUBIN,TOTAL 0.6 mg/dL (0.2-1)
[2023-12-12 12:26] LABS: ANISOCYTOSIS 0; HELMET CELLS 0; HOWELL-JOLLY BODIES 0; MACROCYTOSIS 0; OVALOCYTE 0; ROULEAU 0; SICKELED CELLS 0; TARGET CELLS 0; TEAR DROP CELLS 0; TOXIC GRANULATION 0
[2023-12-12 13:13] LABS: LACTIC ACID 2.7 mmol/L (0.4-2.0)
[2023-12-12] MEDS ORDERED: CEFTRIAXONE 1 GM/50 ML BAG ONE (13:37)
[2023-12-12] MEDS ORDERED: AZITHROMYCIN IVPB 500 MG/250 ML BAG IVPB ONE (13:37)
[2023-12-12] MEDS: AZITHROMYCIN IVPB 500 MG in DEXTROSE 5%-WATER - 250 ML IVPB ONE (13:43)
[2023-12-12 14:50] LABS: LACTIC ACID 2.3 mmol/L (0.4-2.0)
[2023-12-12] MEDS ORDERED: PIPERACILLIN/TAZOB 3.375 GM 3.375 GM in DEXTROSE 5%-WATER - 50 ML IVPB SCH (18:00)
[2023-12-12] MEDS: PIPERACILLIN/TAZOB 3.375 GM 3.375 GM in DEXTROSE 5%-WATER - 50 ML IVPB SCH (18:21)
[2023-12-12] MEDS: FUROSEMIDE 40 MG/4 ML INJECTABLE VIAL IVPUSH ONE (18:26)
[2023-12-12 18:38] LABS: LACTIC ACID 2.7 mmol/L (0.4-2.0)
[2023-12-12] MEDS ORDERED: ENOXAPARIN NA (PORCINE) 40 MG/0.4 ML DISP.SYRIN SQ SCH (20:30)
[2023-12-12 21:19] LABS: LACTIC ACID 2.6 mmol/L (0.4-2.0)
[2023-12-12] MEDS: ENOXAPARIN NA (PORCINE) 60 MG/0.6 ML DISP.SYRIN SQ SCH (22:01)
[2023-12-12] MEDS: METOPROLOL TARTRATE 25 MG TABLET (FP) PO SCH (22:01)
[2023-12-12] MEDS: ATORVASTATIN CA 20 MG TABLET (FP) PO SCH (22:01)
[2023-12-13] MEDS: ALBUTEROL SO4 2.5/IPRATROPIUM 0.5 INH SOL 3 ML VIAL.NEB. NEB ONE (01:25)
[2023-12-13] MEDS ORDERED: PIPERACILLIN/TAZOB 2.25 GM 2.25 GM in DEXTROSE 5%-WATER - 50 ML IVPB SCH (02:00)
[2023-12-13] MEDS: DULoxetine HCL 20 MG CAPSULE.DR PO SCH (09:28)
[2023-12-13] MEDS: PANTOPRAZOLE 20 MG TABLET PO SCH (09:28)
[2023-12-13] MEDS: FLUTICASONE/UMECLIDIN/VILANTER(200-62.5-25 TRELEGY ELLIPTA) INAHLER IH SCH (09:29)
[2023-12-13] MEDS: PIPERACILLIN/TAZOB 2.25 GM 2.25 GM in DEXTROSE 5%-WATER - 50 ML IVPB SCH (10:00)
[2023-12-13] MEDS ORDERED: FLUTICASONE/UMECLIDIN/VILANTER(200-62.5-25 TRELEGY ELLIPTA) INAHLER IH SCH (10:00)
[2023-12-13] MEDS: METOPROLOL TARTRATE 25 MG TABLET (FP) PO SCH (12:00)
[2023-12-13 12:22] LABS: INR 1.27 (0.83-1.09); PROTHROMBIN TIME (PATIENT) 14.3 SEC (9.7-13.0)
[2023-12-13 12:28] LABS: BASO % 0.8 % (0-2.0); EOS % 2.4 % (0-4.5); HEMATOCRIT 30.2 % (32.4-45.2); HEMOGLOBIN 9.8 GM/dL (10.7-15.3); LYMPH % 10.2 % (8-40); MCH 26.4 pg (25.7-33.7); MCHC 32.3 g/dl (32.0-36.0); MEAN CELL VOLUME 81.5 fl (80-96); MEAN PLT VOLUME 7.3 fl (7.5-11.1); MONO % 9.6 % (3.8-10.2); PLATELET COUNT 360 10^3/uL (134-434); RDW 18.1 % (11.6-15.6); WHITE BLOOD COUNT 10.9 K/mm3 (4.0-10.0)
[2023-12-13 12:42] LABS: POTASSIUM 3.7 mmol/L (3.5-5.1)
[2023-12-13 12:43] LABS: CALCIUM 8.7 mg/dL (8.5-10.1)
[2023-12-13 12:44] LABS: BLOOD UREA NITROGEN 17.1 mg/dL (7-18); MAGNESIUM 1.7 mg/dL (1.8-2.4)
[2023-12-13] MEDS: FUROSEMIDE 40 MG TABLET (FP) PO ONE ×2 (12:45→18:10)
[2023-12-13 12:47] LABS: PHOSPHOROUS 2.4 mg/dL (2.5-4.9)
[2023-12-13] MEDS: NAPH,MB-DB/K PH,MBDB POWDER PACKET PO ONE (16:20)
[2023-12-13] MEDS: MAGNESIUM OXIDE 400 MG TABLET (FP) PO ONE (16:20)
[2023-12-13] MEDS: MAGNESIUM 2GM/50ML STERILE WATER IVPB IVPB ONE (17:53)
[2023-12-13] MEDS: WARFARIN NA 2 MG TABLET PO SCH (18:10)
[2023-12-13] MEDS: AMOX TR/POT CLAV 500MG/125MG TABLETS (FP) PO SCH (18:10)
[2023-12-13] MEDS: MONTELUKAST NA 10 MG TABLET PO SCH (22:09)
[2023-12-13] MEDS: ENOXAPARIN NA (PORCINE) 60 MG/0.6 ML DISP.SYRIN SQ SCH (22:10)
[2023-12-14 08:41] LABS: BASO % 0.2 % (0-2.0); EOS % 2.5 % (0-4.5); HEMATOCRIT 29.5 % (32.4-45.2); HEMOGLOBIN 9.6 GM/dL (10.7-15.3); LYMPH % 11.1 % (8-40); MCHC 32.7 g/dl (32.0-36.0); MEAN CELL VOLUME 82.5 fl (80-96); MEAN PLT VOLUME 7.1 fl (7.5-11.1); MONO % 7.7 % (3.8-10.2); NEUT % 78.5 % (42.8-82.8); PLATELET COUNT 306 10^3/uL (134-434); RBC 3.57 M/mm3 (3.60-5.2); WHITE BLOOD COUNT 9.2 K/mm3 (4.0-10.0)
[2023-12-14 08:49] LABS: INR 1.35 (0.83-1.09); PROTHROMBIN TIME (PATIENT) 15.4 SEC (9.7-13.0)
[2023-12-14 09:09] LABS: POTASSIUM 3.5 mmol/L (3.5-5.1)
[2023-12-14 09:27] LABS: ALBUMIN 2.7 g/dl (3.4-5.0); BLOOD UREA NITROGEN 15.7 mg/dL (7-18); CALCIUM 8.6 mg/dL (8.5-10.1); MAGNESIUM 1.5 mg/dL (1.8-2.4)
[2023-12-14 09:30] LABS: PHOSPHOROUS 2.8 mg/dL (2.5-4.9)
[2023-12-14 09:31] LABS: BILIRUBIN,TOTAL 0.7 mg/dL (0.2-1)
[2023-12-14 09:32] LABS: TOT PROT 6.2 g/dl (6.4-8.2)
[2023-12-14] MEDS: FUROSEMIDE 40 MG TABLET (FP) PO SCH (09:38)
[2023-12-14] MEDS ORDERED: MAGNESIUM 2GM/50ML STERILE WATER IVPB IVPB ONE (10:30)
[2023-12-14] MEDS: MAGNESIUM 2GM/50ML STERILE WATER IVPB IVPB ONE (13:39)
[2023-12-15 07:49] LABS: BASO % 0.6 % (0-2.0); EOS % 2.6 % (0-4.5); HEMOGLOBIN 8.7 GM/dL (10.7-15.3); LYMPH % 10.7 % (8-40); MCH 26.7 pg (25.7-33.7); MCHC 32.4 g/dl (32.0-36.0); MEAN CELL VOLUME 82.2 fl (80-96); MEAN PLT VOLUME 7.6 fl (7.5-11.1); MONO % 6.3 % (3.8-10.2); NEUT % 79.8 % (42.8-82.8); PLATELET COUNT 287 10^3/uL (134-434); RBC 3.28 M/mm3 (3.60-5.2); RDW 18.1 % (11.6-15.6); WHITE BLOOD COUNT 8.9 K/mm3 (4.0-10.0)
[2023-12-15 07:58] LABS: POTASSIUM 3.3 mmol/L (3.5-5.1)
[2023-12-15 08:00] LABS: CALCIUM 8.5 mg/dL (8.5-10.1)
[2023-12-15 08:01] LABS: ALBUMIN 2.5 g/dl (3.4-5.0); BLOOD UREA NITROGEN 13.2 mg/dL (7-18); MAGNESIUM 1.5 mg/dL (1.8-2.4)
[2023-12-15 08:04] LABS: CREATININE 0.8 mg/dL (0.55-1.3); PHOSPHOROUS 2.8 mg/dL (2.5-4.9)
[2023-12-15 08:05] LABS: TOT PROT 5.4 g/dl (6.4-8.2)
[2023-12-15 08:06] LABS: BILIRUBIN,TOTAL 0.6 mg/dL (0.2-1)
[2023-12-15 08:14] LABS: INR 2.77 (0.83-1.09); PROTHROMBIN TIME (PATIENT) 30.4 SEC (9.7-13.0)
[2023-12-15] MEDS: POTASSIUM CHLORIDE ORAL LIQUID 20 MEQ/15 ML PO ONE (10:29)
[2023-12-16 08:02] LABS: BASO % 0.8 % (0-2.0); EOS % 2.9 % (0-4.5); HEMATOCRIT 27.4 % (32.4-45.2); HEMOGLOBIN 8.9 GM/dL (10.7-15.3); LYMPH % 11.9 % (8-40); MCH 26.8 pg (25.7-33.7); MCHC 32.6 g/dl (32.0-36.0); MEAN CELL VOLUME 82.2 fl (80-96); MEAN PLT VOLUME 7.5 fl (7.5-11.1); MONO % 6.9 % (3.8-10.2); NEUT % 77.5 % (42.8-82.8); PLATELET COUNT 307 10^3/uL (134-434); RBC 3.33 M/mm3 (3.60-5.2); RDW 17.9 % (11.6-15.6); WHITE BLOOD COUNT 8.1 K/mm3 (4.0-10.0)
[2023-12-16 08:12] LABS: POTASSIUM 3.8 mmol/L (3.5-5.1)
[2023-12-16 08:24] LABS: CALCIUM 8.9 mg/dL (8.5-10.1)
[2023-12-16 08:25] LABS: BLOOD UREA NITROGEN 11.1 mg/dL (7-18)
[2023-12-16 08:28] LABS: ALBUMIN 2.4 g/dl (3.4-5.0)
[2023-12-16 08:30] LABS: TOT PROT 5.8 g/dl (6.4-8.2)
[2023-12-16 08:31] LABS: BILIRUBIN,TOTAL 0.5 mg/dL (0.2-1); CREATININE 0.8 mg/dL (0.55-1.3)
[2023-12-16] MEDS: ACETAMINOPHEN 325 MG TABLET (FP) PO PRN (14:19)
[2023-12-16] MEDS: methylPREDNISolone NA SUCC 40 MG/1 ML VIAL IVPUSH SCH (14:19)
[2023-12-16] MEDS: ALBUTEROL SO4 2.5/IPRATROPIUM 0.5 INH SOL 3 ML VIAL.NEB. NEB SCH (14:50)
[2023-12-17] MEDS: LOPERAMIDE HCL 2 MG CAPSULE PO PRN (05:39)
[2023-12-17 11:46] LABS: PROTHROMBIN TIME (PATIENT) 108.8 SEC (9.7-13.0)
[2023-12-17 11:49] LABS: HEMATOCRIT 28.2 % (32.4-45.2); HEMOGLOBIN 9.3 GM/dL (10.7-15.3); MCH 26.8 pg (25.7-33.7); MEAN CELL VOLUME 81.2 fl (80-96); MEAN PLT VOLUME 7.5 fl (7.5-11.1); PLATELET COUNT 325 10^3/uL (134-434); RBC 3.47 M/mm3 (3.60-5.2); RDW 17.9 % (11.6-15.6); WHITE BLOOD COUNT 6.2 K/mm3 (4.0-10.0)
[2023-12-17 11:51] LABS: INR 10.31 (0.83-1.09)
[2023-12-17 11:59] LABS: POTASSIUM 3.7 mmol/L (3.5-5.1)
[2023-12-17 12:09] LABS: BLOOD UREA NITROGEN 18.2 mg/dL (7-18); CALCIUM 9.1 mg/dL (8.5-10.1)
[2023-12-17 12:10] LABS: ALBUMIN 2.7 g/dl (3.4-5.0); MAGNESIUM 1.6 mg/dL (1.8-2.4)
[2023-12-17 12:13] LABS: CREATININE 1.2 mg/dL (0.55-1.3); PHOSPHOROUS 3.6 mg/dL (2.5-4.9)
[2023-12-17 12:14] LABS: BILIRUBIN,TOTAL 0.4 mg/dL (0.2-1); TOT PROT 6.3 g/dl (6.4-8.2)
[2023-12-17 12:31] LABS: ANISOCYTOSIS 1+; MACROCYTOSIS 0; OVALOCYTE 1+
[2023-12-17 12:33] LABS: PLATELET ESTIMATE ADEQUATE
[2023-12-17 13:23] LABS: PROTHROMBIN TIME (PATIENT) 111.9 SEC (9.7-13.0)
[2023-12-17 13:26] LABS: INR 10.61 (0.83-1.09)
[2023-12-17] MEDS: MAGNESIUM SULF 50% (8.12 MEQ/2 ML-1 GM VIAL) IVPB ONE (15:44)
[2023-12-17 15:52] VITALS: BMI 20.6
[2023-12-17] MEDS: MAGNESIUM OXIDE 400 MG TABLET (FP) PO ONE (17:31)
[2023-12-17] MEDS: PHYTONADIONE 5 MG TABLET PO ONE (17:31)
[2023-12-17] MEDS: PIPERACILLIN/TAZOB 2.25 GM 2.25 GM in DEXTROSE 5%-WATER - 50 ML IVPB SCH (19:43)
[2023-12-17] MEDS: FUROSEMIDE 40 MG/4 ML INJECTABLE VIAL IVPUSH SCH (19:44)
[2023-12-17] MEDS: AMOX TR/POT CLAV 875MG/125MG TABLETS (FP) PO SCH (19:44)
[2023-12-18 10:05] LABS: PROTHROMBIN TIME (PATIENT) 50.1 SEC (9.7-13.0)
[2023-12-18 10:43] LABS: INR 4.55 (0.83-1.09)
[2023-12-18 12:06] VITALS: BP 95/39; PULSE 78; RESP 18; TEMP 97.7
== END 2023-12-18 15:08 | disposition home or self-care (01) | DRG 280 ==
LOC: JER 10:17 → JERBED 13:27 → J4W 16:35
PROVIDERS: ADMIT Internal Medicine; ATTEND Internal Medicine
DX: I13.0 Hypertensive heart and chronic kidney disease with heart failure and stage 1 through stage 4 chronic kidney disease, or unspecified chronic kidney disease (principal); I50.23 Acute on chronic systolic (congestive) heart failure; I21.A1 Myocardial infarction type 2; N17.9 Acute kidney failure, unspecified; E87.20 Acidosis, unspecified; J44.1 Chronic obstructive pulmonary disease with (acute) exacerbation; I25.2 Old myocardial infarction; Z95.2 Presence of prosthetic heart valve; Z99.81 Dependence on supplemental oxygen; E87.5 Hyperkalemia; I25.10 Atherosclerotic heart disease of native coronary artery without angina pectoris; Z95.1 Presence of aortocoronary bypass graft; N18.30 Chronic kidney disease, stage 3 unspecified; I48.0 Paroxysmal atrial fibrillation; I25.5 Ischemic cardiomyopathy
CPT/HCPCS: 0241U-QW; 36415; 71045-TC-FY; 74176-TC; 80048; 80053; 82803; 83605; 83735; 83880; 84100; 84443; 84484; 85025; 85610; 86140; 87040; 87081; 87324; 87449; 93005; 93010; 94640; 94660; 97116-GP; 97161-GP; 99291; J1100

== ENCOUNTER 2024-01-06 17:11 | Inpatient (IN) | payer OTHER ==
[2024-01-06] MEDS ORDERED: diazePAM 2 MG TABLET ONE (18:47)
[2024-01-06] MEDS: SODIUM CHLORIDE 1,000 ML IV STA (18:57)
[2024-01-06] MEDS: diazePAM 2 MG TABLET PO ONE (18:57)
[2024-01-06 19:01] LABS: HEMATOCRIT 33.3 % (32.4-45.2); HEMOGLOBIN 10.8 GM/dL (10.7-15.3); MCH 26.2 pg (25.7-33.7); MCHC 32.4 g/dl (32.0-36.0); MEAN CELL VOLUME 80.8 fl (80-96); MEAN PLT VOLUME 7.9 fl (7.5-11.1); PLATELET COUNT 256 10^3/uL (134-434); RBC 4.12 M/mm3 (3.60-5.2); WHITE BLOOD COUNT 14.1 K/mm3 (4.0-10.0)
[2024-01-06 19:23] LABS: CHLORIDE 90 mmol/L (98-107); SODIUM 136 mmol/L (136-145)
[2024-01-06 19:26] LABS: ALBUMIN 3.2 g/dl (3.4-5.0); BLOOD UREA NITROGEN 37.3 mg/dL (7-18); CO2 36 mmol/L (21-32); GLUCOSE,RANDOM 86 mg/dL (74-106)
[2024-01-06 19:29] LABS: CREATININE 1.8 mg/dL (0.55-1.3); SGOT/AST 34 U/L (15-37); SGPT/ALT 23 U/L (13-61)
[2024-01-06 19:30] LABS: BILIRUBIN,TOTAL 0.6 mg/dL (0.2-1); TOT PROT 6.8 g/dl (6.4-8.2)
[2024-01-06 19:31] LABS: ALK PHOS 79 U/L (45-117)
[2024-01-06 20:52] LABS: ANION GAP 11 mmol/L (4-13); POTASSIUM 2.4 mmol/L (3.5-5.1)
[2024-01-06] MEDS ORDERED: POTASSIUM CHLORIDE ORAL LIQUID 20 MEQ/15 ML ONE (21:04)
[2024-01-06] MEDS ORDERED: KCL 10 MEQ IVPB 10 MEQ/100 ML INFUS.BAG IVPB ONE ×2 (21:05→22:00)
[2024-01-06] MEDS: POTASSIUM CHLORIDE ORAL LIQUID 20 MEQ/15 ML PO ONE (21:15)
[2024-01-06] MEDS: KCL 10 MEQ IVPB 10 MEQ/100 ML INFUS.BAG IVPB SCH (21:15)
[2024-01-06 23:41] LABS: POTASSIUM 3.6 mmol/L (3.5-5.1)
[2024-01-06 23:42] LABS: CALCIUM 7.8 mg/dL (8.5-10.1)
[2024-01-06 23:43] LABS: BLOOD UREA NITROGEN 33.2 mg/dL (7-18)
[2024-01-06 23:46] LABS: CREATININE 1.4 mg/dL (0.55-1.3)
[2024-01-07] MEDS ORDERED: KCL 10 MEQ IVPB 10 MEQ/100 ML INFUS.BAG IVPB ONE (00:12)
[2024-01-07] MEDS: SODIUM CHLORIDE 1,000 ML IV SCH (03:49)
[2024-01-07] MEDS: POTASSIUM CHLORIDE ORAL LIQUID 20 MEQ/15 ML PO ONE (03:50)
[2024-01-07 04:45] LABS: BASO % 0.5 % (0-2.0); EOS % 3.3 % (0-4.5); HEMATOCRIT 27.4 % (32.4-45.2); HEMOGLOBIN 8.8 GM/dL (10.7-15.3); LYMPH % 14.2 % (8-40); MCH 26.4 pg (25.7-33.7); MEAN CELL VOLUME 82.5 fl (80-96); MEAN PLT VOLUME 7.7 fl (7.5-11.1); MONO % 8.3 % (3.8-10.2); NEUT % 73.7 % (42.8-82.8); PLATELET COUNT 207 10^3/uL (134-434); RBC 3.33 M/mm3 (3.60-5.2); RDW 17.9 % (11.6-15.6); WHITE BLOOD COUNT 10.5 K/mm3 (4.0-10.0)
[2024-01-07] MEDS ORDERED: HEPARIN NA (PORCINE) 5,000 UNITS/ML 1ML VIAL ONE ×2 (05:46→14:03)
[2024-01-07] MEDS: HEPARIN NA (PORCINE) 5,000 UNITS/ML 1ML VIAL SQ SCH (06:37)
[2024-01-07 07:08] LABS: BASO % 0.6 % (0-2.0); EOS % 3.7 % (0-4.5); HEMATOCRIT 26.9 % (32.4-45.2); HEMOGLOBIN 8.7 GM/dL (10.7-15.3); LYMPH % 12.1 % (8-40); MCH 27.1 pg (25.7-33.7); MCHC 32.5 g/dl (32.0-36.0); MEAN CELL VOLUME 83.2 fl (80-96); MEAN PLT VOLUME 8.1 fl (7.5-11.1); MONO % 8.6 % (3.8-10.2); PLATELET COUNT 204 10^3/uL (134-434); RBC 3.23 M/mm3 (3.60-5.2); RDW 18.2 % (11.6-15.6); WHITE BLOOD COUNT 9.8 K/mm3 (4.0-10.0)
[2024-01-07 07:20] LABS: POTASSIUM 3.3 mmol/L (3.5-5.1)
[2024-01-07 07:23] LABS: ALBUMIN 2.6 g/dl (3.4-5.0); BLOOD UREA NITROGEN 31.1 mg/dL (7-18); CALCIUM 7.7 mg/dL (8.5-10.1); MAGNESIUM 1.5 mg/dL (1.8-2.4)
[2024-01-07 07:26] LABS: CREATININE 1.3 mg/dL (0.55-1.3); PHOSPHOROUS 2.3 mg/dL (2.5-4.9)
[2024-01-07 07:27] LABS: BILIRUBIN,TOTAL 0.4 mg/dL (0.2-1)
[2024-01-07 07:28] LABS: TOT PROT 5.3 g/dl (6.4-8.2)
[2024-01-07] MEDS ORDERED: PREGABALIN 50 MG CAPSULE ONE (09:42)
[2024-01-07] MEDS ORDERED: PREGABALIN 25 MG CAPSULE ONE (09:43)
[2024-01-07] MEDS ORDERED: PANTOPRAZOLE 40 MG TABLET PO ONE (09:43)
[2024-01-07] MEDS: FLUTICASONE/UMECLIDIN/VILANTER(200-62.5-25 TRELEGY ELLIPTA) INAHLER IH SCH (09:49)
[2024-01-07] MEDS: PREGABALIN 75 MG CAPSULE PO SCH (09:49)
[2024-01-07] MEDS: DULoxetine HCL 20 MG CAPSULE.DR PO SCH (09:49)
[2024-01-07] MEDS: PANTOPRAZOLE 40 MG TABLET PO SCH (09:49)
[2024-01-07] MEDS: ATORVASTATIN CA 20 MG TABLET (FP) PO SCH (21:39)
[2024-01-07] MEDS: MIRTAZAPINE 15 MG TABLET (FP) PO SCH (21:39)
[2024-01-07] MEDS: MONTELUKAST NA 10 MG TABLET PO SCH (21:39)
[2024-01-08 03:17] LABS: EPI CELLS 23 /uL (0-25.1); HYALINE CASTS 2 /uL (0-3.1); PH,URINE 5.5 (5.0-8.0); URINE APPEARANCE TURBID; URINE BACTERIA 303 /uL (0-1359); URINE BILIRUBIN NEGATIVE (NEGATIVE); URINE COLOR YELLOW; URINE GLUCOSE (UA) NEGATIVE (NEGATIVE); URINE KETONE NEGATIVE (NEGATIVE); URINE LEUK ESTERASE 2+ (NEGATIVE); URINE NITRITE NEGATIVE (NEGATIVE); URINE PROTEIN 1+ (NEGATIVE); URINE RBC 51 /uL (0-23.9); URINE UROBILINOGEN 0.2 mg/dL (0.2-1.0); URINE WBC 323 /uL (0-25.8)
[2024-01-08 08:02] LABS: POTASSIUM 3.9 mmol/L (3.5-5.1)
[2024-01-08 08:09] LABS: BLOOD UREA NITROGEN 25.6 mg/dL (7-18)
[2024-01-08 08:25] LABS: CALCIUM 8.9 mg/dL (8.5-10.1)
[2024-01-08] MEDS: LACTATED RINGERS SOLUTION 1,000 ML/1,000 ML INFUS.BAG IV SCH (12:01)
[2024-01-08] MEDS: MAG HYDROX/AL HYDROX/SIMETH 30 ML UNIT-DOSE CUP PO PRN (15:26)
[2024-01-08] MEDS: LORazepam 0.5 MG TABLET PO ONE (21:13)
[2024-01-09 08:14] LABS: POTASSIUM 3.3 mmol/L (3.5-5.1)
[2024-01-09 08:19] LABS: BLOOD UREA NITROGEN 21.6 mg/dL (7-18); CALCIUM 8.9 mg/dL (8.5-10.1)
[2024-01-09 08:23] LABS: CREATININE 0.8 mg/dL (0.55-1.3)
[2024-01-09] MEDS: VENLAFAXINE HCL 75 MG E.R. CAPSULES PO SCH (10:13)
[2024-01-09] MEDS: SODIUM CHLORIDE 0.9% 500 ML INFUS.BAG IV ONE (10:22)
[2024-01-09] MEDS: POLYETHYLENE GLYCOL (HEALTHYLAX) 3350 17 GM PACKET PO SCH (11:10)
[2024-01-09] MEDS: TAMSULOSIN HCL 0.4 MG CAP PO SCH (11:10)
[2024-01-09] MEDS: POTASSIUM CHLORIDE ORAL LIQUID 20 MEQ/15 ML PO ONE (21:27)
[2024-01-09] MEDS: METOPROLOL TARTRATE 25 MG TABLET (FP) PO SCH (21:28)
[2024-01-10 13:27] LABS: BASO % 0.5 % (0-2.0); EOS % 1.2 % (0-4.5); HEMATOCRIT 25.1 % (32.4-45.2); HEMOGLOBIN 8.1 GM/dL (10.7-15.3); LYMPH % 6.8 % (8-40); MCH 26.8 pg (25.7-33.7); MCHC 32.3 g/dl (32.0-36.0); MONO % 7.3 % (3.8-10.2); NEUT % 84.2 % (42.8-82.8); PLATELET COUNT 164 10^3/uL (134-434); RBC 3.03 M/mm3 (3.60-5.2); RDW 18.3 % (11.6-15.6); WHITE BLOOD COUNT 8.8 K/mm3 (4.0-10.0)
[2024-01-10 13:54] LABS: POTASSIUM 4.1 mmol/L (3.5-5.1)
[2024-01-10 13:55] LABS: BLOOD UREA NITROGEN 19.5 mg/dL (7-18)
[2024-01-10 13:56] LABS: CALCIUM 8.4 mg/dL (8.5-10.1)
[2024-01-10 13:57] LABS: MAGNESIUM 1.5 mg/dL (1.8-2.4)
[2024-01-10 13:58] LABS: CREATININE 0.8 mg/dL (0.55-1.3); PHOSPHOROUS 1.4 mg/dL (2.5-4.9)
[2024-01-10] MEDS: SODIUM PHOSPHATE/NA BIPHOS 133 ML ENEMA RC ONE (19:18)
[2024-01-10] MEDS: ACETAMINOPHEN 1000 MG/100 ML BAG IVPB ONE (20:39)
[2024-01-11] MEDS: LIDOCAINE HCL 2% JELLY (30 ML/TUBE) TP ONE (03:28)
[2024-01-11] MEDS: PHENYLEPHRINE HCL/COCOA BUTTER 1 EACH SUPP.RECT RC ONE (03:50)
[2024-01-11 07:44] LABS: BASO % 0.6 % (0-2.0); EOS % 1.7 % (0-4.5); HEMATOCRIT 25.2 % (32.4-45.2); HEMOGLOBIN 8.1 GM/dL (10.7-15.3); LYMPH % 6.9 % (8-40); MCH 27.3 pg (25.7-33.7); MCHC 32.3 g/dl (32.0-36.0); MEAN CELL VOLUME 84.5 fl (80-96); MEAN PLT VOLUME 8.2 fl (7.5-11.1); MONO % 5.5 % (3.8-10.2); NEUT % 85.3 % (42.8-82.8); PLATELET COUNT 176 10^3/uL (134-434); RBC 2.98 M/mm3 (3.60-5.2); RDW 18.1 % (11.6-15.6)
[2024-01-11 07:51] LABS: POTASSIUM 3.8 mmol/L (3.5-5.1)
[2024-01-11 07:52] LABS: CALCIUM 8.6 mg/dL (8.5-10.1)
[2024-01-11 07:53] LABS: BLOOD UREA NITROGEN 23.4 mg/dL (7-18)
[2024-01-11 08:31] LABS: INR 1.27 (0.83-1.09); PROTHROMBIN TIME (PATIENT) 14.5 SEC (9.7-13.0)
[2024-01-11] MEDS ORDERED: PHENYLEPHRINE HCL/COCOA BUTTER 1 EACH SUPP.RECT RC SCH (10:00)
[2024-01-11] MEDS: PHENYLEPH/MINERAL OIL/PETROLAT 28 GM OINTMENT RC SCH (11:19)
[2024-01-11] MEDS: MAGNESIUM 1GM/D5W 100ML - 100 ML IVPB IVPB ONE (11:40)
[2024-01-11] MEDS ORDERED: ACETAMINOPHEN 1000 MG/100 ML BAG IVPB PRN (13:22)
[2024-01-11] MEDS: ACETAMINOPHEN 1000 MG/100 ML BAG IVPB PRN (14:38)
[2024-01-11] MEDS: FUROSEMIDE 40 MG TABLET (FP) PO SCH (17:18)
[2024-01-11] MEDS: WARFARIN NA 1 MG TABLET PO SCH (17:18)
[2024-01-11] MEDS: FERROUS SO4 325 MG TABLET (FP) PO SCH (17:18)
[2024-01-12 07:50] LABS: POTASSIUM 3.9 mmol/L (3.5-5.1)
[2024-01-12 07:57] LABS: CALCIUM 8.3 mg/dL (8.5-10.1)
[2024-01-12 07:58] LABS: BLOOD UREA NITROGEN 20.7 mg/dL (7-18)
[2024-01-12 08:01] LABS: CREATININE 0.7 mg/dL (0.55-1.3)
[2024-01-12 08:10] LABS: BASO % 0.6 % (0-2.0); HEMATOCRIT 24.9 % (32.4-45.2); LYMPH % 8.8 % (8-40); MCH 26.9 pg (25.7-33.7); MCHC 32.1 g/dl (32.0-36.0); MEAN CELL VOLUME 83.8 fl (80-96); MEAN PLT VOLUME 8.1 fl (7.5-11.1); MONO % 7.7 % (3.8-10.2); NEUT % 80.9 % (42.8-82.8); PLATELET COUNT 172 10^3/uL (134-434); RBC 2.98 M/mm3 (3.60-5.2); RDW 18.2 % (11.6-15.6); WHITE BLOOD COUNT 7.9 K/mm3 (4.0-10.0)
[2024-01-12 08:15] LABS: INR 1.31 (0.83-1.09); PROTHROMBIN TIME (PATIENT) 14.7 SEC (9.7-13.0)
[2024-01-12] MEDS: ALBUTEROL SO4 2.5/IPRATROPIUM 0.5 INH SOL 3 ML VIAL.NEB. NEB SCH (11:19)
[2024-01-13 07:45] LABS: BASO % 0.5 % (0-2.0); EOS % 2.1 % (0-4.5); HEMATOCRIT 23.4 % (32.4-45.2); HEMOGLOBIN 7.6 GM/dL (10.7-15.3); LYMPH % 13.1 % (8-40); MCHC 32.5 g/dl (32.0-36.0); MEAN CELL VOLUME 83.3 fl (80-96); MEAN PLT VOLUME 7.7 fl (7.5-11.1); MONO % 7.4 % (3.8-10.2); NEUT % 76.9 % (42.8-82.8); PLATELET COUNT 184 10^3/uL (134-434); RBC 2.81 M/mm3 (3.60-5.2); RDW 18.8 % (11.6-15.6); WHITE BLOOD COUNT 7.5 K/mm3 (4.0-10.0)
[2024-01-13 07:59] LABS: INR 1.28 (0.83-1.09); PROTHROMBIN TIME (PATIENT) 14.6 SEC (9.7-13.0)
[2024-01-13 08:11] LABS: POTASSIUM 4.3 mmol/L (3.5-5.1)
[2024-01-13 08:13] LABS: BLOOD UREA NITROGEN 18.6 mg/dL (7-18)
[2024-01-13 08:16] LABS: CREATININE 0.8 mg/dL (0.55-1.3)
[2024-01-13] MEDS ORDERED: LORazepam 0.5 MG TABLET PO PRN (10:44)
[2024-01-13] MEDS: DULoxetine HCL 20 MG CAPSULE.DR PO SCH (13:07)
[2024-01-13] MEDS: MINERAL OIL/PET HY-PHL TOPICAL OINTMENT 454 GM JAR TP SCH (13:07)
[2024-01-13] MEDS ORDERED: WARFARIN NA 5 MG TABLET PO ONE (18:00)
[2024-01-13] MEDS: MAGNESIUM SULF 50% (8.12 MEQ/2 ML-1 GM VIAL) IVPB ONE (19:05)
[2024-01-13] MEDS: WARFARIN NA 5 MG TABLET PO ONE (19:06)
[2024-01-13] MEDS: ENOXAPARIN NA (PORCINE) 60 MG/0.6 ML DISP.SYRIN SQ ONE (19:06)
[2024-01-13] MEDS: SODIUM PHOSPHATE - 45 MM in DEXTROSE 5%-WATER - 500 ML IVPB ONE (21:23)
[2024-01-13 22:36] VITALS: BMI 22.5
[2024-01-14 08:52] LABS: HEMOGLOBIN 7.8 GM/dL (10.7-15.3); MCH 26.8 pg (25.7-33.7); MCHC 32.6 g/dl (32.0-36.0); MEAN CELL VOLUME 82.2 fl (80-96); MEAN PLT VOLUME 7.5 fl (7.5-11.1); PLATELET COUNT 189 10^3/uL (134-434); RBC 2.92 M/mm3 (3.60-5.2); RDW 18.4 % (11.6-15.6); WHITE BLOOD COUNT 6.9 K/mm3 (4.0-10.0)
[2024-01-14 09:06] LABS: POTASSIUM 3.8 mmol/L (3.5-5.1)
[2024-01-14 09:09] LABS: BLOOD UREA NITROGEN 17.8 mg/dL (7-18); CALCIUM 7.9 mg/dL (8.5-10.1); MAGNESIUM 2.2 mg/dL (1.8-2.4)
[2024-01-14 09:13] LABS: CREATININE 0.7 mg/dL (0.55-1.3); PHOSPHOROUS 5.8 mg/dL (2.5-4.9)
[2024-01-14] MEDS: METOPROLOL TARTRATE 25 MG TABLET (FP) PO SCH (10:42)
[2024-01-14] MEDS ORDERED: METOPROLOL TARTRATE 25 MG TABLET (FP) PO ONE (10:45)
[2024-01-14 12:10] LABS: INR 1.7 (0.83-1.09); PROTHROMBIN TIME (PATIENT) 18.9 SEC (9.7-13.0)
[2024-01-14] MEDS ORDERED: MAG HYDROX/AL HYDROX/SIMETH 30 ML UNIT-DOSE CUP PO PRN (15:40)
[2024-01-14] MEDS: PREGABALIN 75 MG CAPSULE PO SCH (21:17)
[2024-01-14] MEDS: MIRTAZAPINE 15 MG TABLET (FP) PO SCH (21:18)
[2024-01-14] MEDS: ATORVASTATIN CA 20 MG TABLET (FP) PO SCH (21:18)
[2024-01-14] MEDS: APIXABAN 2.5 MG TABLET PO SCH (21:18)
[2024-01-14] MEDS: MONTELUKAST NA 10 MG TABLET PO SCH (21:18)
[2024-01-14] MEDS: POLYETHYLENE GLYCOL (HEALTHYLAX) 3350 17 GM PACKET PO SCH (21:19)
[2024-01-15 09:23] LABS: HEMATOCRIT 22.8 % (32.4-45.2); HEMOGLOBIN 7.5 GM/dL (10.7-15.3); MCH 27.4 pg (25.7-33.7); MCHC 33.1 g/dl (32.0-36.0); MEAN CELL VOLUME 82.7 fl (80-96); MEAN PLT VOLUME 7.6 fl (7.5-11.1); PLATELET COUNT 203 10^3/uL (134-434); RBC 2.75 M/mm3 (3.60-5.2); RDW 18.4 % (11.6-15.6); WHITE BLOOD COUNT 7.8 K/mm3 (4.0-10.0)
[2024-01-15 09:41] LABS: POTASSIUM 3.8 mmol/L (3.5-5.1)
[2024-01-15] MEDS: VENLAFAXINE HCL 75 MG E.R. CAPSULES PO SCH (09:48)
[2024-01-15 09:49] LABS: BLOOD UREA NITROGEN 17.7 mg/dL (7-18); CALCIUM 8.4 mg/dL (8.5-10.1)
[2024-01-15] MEDS: THIAMINE 100 MG TABLET PO SCH (09:49)
[2024-01-15] MEDS: PANTOPRAZOLE 40 MG TABLET PO SCH (09:49)
[2024-01-15] MEDS: FLUTICASONE/UMECLIDIN/VILANTER(200-62.5-25 TRELEGY ELLIPTA) INAHLER IH SCH (09:51)
[2024-01-15 09:52] LABS: CREATININE 0.8 mg/dL (0.55-1.3); PHOSPHOROUS 2.1 mg/dL (2.5-4.9)
[2024-01-15] MEDS: NAPH,MB-DB/K PH,MBDB POWDER PACKET PO ONE (10:51)
[2024-01-15] MEDS ORDERED: ALBUTEROL SO4 2.5/IPRATROPIUM 0.5 INH SOL 3 ML VIAL.NEB. NEB PRN (12:21)
[2024-01-17 09:43] VITALS: RESP 18
[2024-01-17 14:02] VITALS: BP 98/46; PULSE 88; TEMP 99
== END 2024-01-17 14:01 | disposition home or self-care (01) | DRG 683 ==
LOC: JER 17:11 → JERBED 01-07 00:01 → J4W 01-07 15:41 → J5S 01-14 15:32
PROVIDERS: ADMIT Internal Medicine; ATTEND Internal Medicine
DX: N17.9 Acute kidney failure, unspecified (principal); E44.0 Moderate protein-calorie malnutrition; J96.11 Chronic respiratory failure with hypoxia; I50.22 Chronic systolic (congestive) heart failure; K21.9 Gastro-esophageal reflux disease without esophagitis; E87.6 Hypokalemia; D72.89 Other specified disorders of white blood cells; I10 Essential (primary) hypertension; E78.5 Hyperlipidemia, unspecified; I25.10 Atherosclerotic heart disease of native coronary artery without angina pectoris; Z95.1 Presence of aortocoronary bypass graft; F41.8 Other specified anxiety disorders; R62.7 Adult failure to thrive; Z68.22 Body mass index [BMI] 22.0-22.9, adult; I48.0 Paroxysmal atrial fibrillation; D64.9 Anemia, unspecified; F32.4 Major depressive disorder, single episode, in partial remission; I11.0 Hypertensive heart disease with heart failure; J44.9 Chronic obstructive pulmonary disease, unspecified; R33.9 Retention of urine, unspecified; E86.0 Dehydration
CPT/HCPCS: 36415; 71045-TC-FY; 80048; 80053; 81003; 82272; 82550; 82728; 82962; 83540; 83550; 83735; 84100; 84443; 84484; 85025; 85027; 85610; 87086; 87186; 87635; 93005; 93010; 94640; 97116-GP; 97161-GP; 99285-25; J0131; J1644

== ENCOUNTER 2024-04-26 09:04 | Inpatient (IN) | payer OTHER ==
[2024-04-26] MEDS ORDERED: ALBUTEROL SO4 2.5/IPRATROPIUM 0.5 INH SOL 3 ML VIAL.NEB. NEB ONE (10:09)
[2024-04-26] MEDS: ALBUTEROL SO4 2.5/IPRATROPIUM 0.5 INH SOL 3 ML VIAL.NEB. NEB SCH ×2 (10:32→20:21)
[2024-04-26 10:33] LABS: VENOUS BASE EXCESS 0.4 mmol/L (-2-2); VENOUS O2 SATURATION 51.2 % (70-80); VENOUS PCO2 56.5 mmHg (38-52); VENOUS PH 7.301 (7.310-7.410)
[2024-04-26 10:44] LABS: BASO % 1.6 % (0-2.0); EOS % 1.8 % (0-4.5); HEMATOCRIT 25.1 % (32.4-45.2); HEMOGLOBIN 7.6 GM/dL (10.7-15.3); LYMPH % 10.4 % (8-40); MCH 23.1 pg (25.7-33.7); MCHC 30.2 g/dl (32.0-36.0); MEAN CELL VOLUME 76.6 fl (80-96); MONO % 6.4 % (3.8-10.2); NEUT % 79.8 % (42.8-82.8); PLATELET COUNT 265 10^3/uL (134-434); RBC 3.28 M/mm3 (3.60-5.2); RDW 21.3 % (11.6-15.6); WHITE BLOOD COUNT 10.1 K/mm3 (4.0-10.0)
[2024-04-26 10:56] LABS: POTASSIUM 5.4 mmol/L (3.5-5.1)
[2024-04-26 10:58] LABS: BLOOD UREA NITROGEN 31.5 mg/dL (7-18); CALCIUM 8.7 mg/dL (8.5-10.1); MAGNESIUM 2.3 mg/dL (1.8-2.4)
[2024-04-26 10:59] LABS: ALBUMIN 2.9 g/dl (3.4-5.0)
[2024-04-26 11:02] LABS: CREATININE 1.4 mg/dL (0.55-1.3)
[2024-04-26 11:03] LABS: BILIRUBIN,TOTAL 0.3 mg/dL (0.2-1); TOT PROT 6.6 g/dl (6.4-8.2)
[2024-04-26 11:09] LABS: ANISOCYTOSIS 2+; MACROCYTOSIS 0
[2024-04-26 11:47] LABS: POTASSIUM 4.5 mmol/L (3.5-5.1)
[2024-04-26 11:49] LABS: BLOOD UREA NITROGEN 28.3 mg/dL (7-18); CALCIUM 8.3 mg/dL (8.5-10.1)
[2024-04-26 11:53] LABS: CREATININE 1.4 mg/dL (0.55-1.3)
[2024-04-26] MEDS ORDERED: DEXAMETHASONE SOD PHOSPHATE 10 MG/1 ML VIAL ONE (12:05)
[2024-04-26] MEDS: DEXAMETHASONE SOD PHOSPHATE 20 MG/5 ML VIAL IVPB ONE (12:19)
[2024-04-26 13:31] LABS: N-TERMINAL BNP 2553.4 pg/ml (5-450)
[2024-04-26] MEDS ORDERED: VENLAFAXINE HCL 75 MG TABLET ONE (15:42)
[2024-04-26] MEDS ORDERED: PANTOPRAZOLE 20 MG TABLET PO ONE (15:42)
[2024-04-26] MEDS ORDERED: FUROSEMIDE 40 MG TABLET (FP) ONE ×2 (15:42→15:43)
[2024-04-26] MEDS ORDERED: METOPROLOL TARTRATE 25 MG TABLET (FP) ONE (15:42)
[2024-04-26] MEDS: PANTOPRAZOLE 20 MG TABLET PO SCH (15:56)
[2024-04-26] MEDS: FUROSEMIDE 40 MG TABLET (FP) PO SCH (15:56)
[2024-04-26] MEDS: DULoxetine HCL 20 MG CAPSULE.DR PO SCH (15:57)
[2024-04-26] MEDS: METOPROLOL TARTRATE 25 MG TABLET (FP) PO SCH (15:57)
[2024-04-26] MEDS: VENLAFAXINE HCL 75 MG E.R. CAPSULES PO SCH (15:57)
[2024-04-26 17:20] VITALS: BMI 22.7
[2024-04-26] MEDS: FLUTICASONE/UMECLIDIN/VILANTER(100-62.5-25 TRELEGY ELLIPTA) INAHLER IH SCH (17:21)
[2024-04-26] MEDS: ATORVASTATIN CA 20 MG TABLET (FP) PO SCH (22:59)
[2024-04-26] MEDS: APIXABAN 2.5 MG TABLET PO SCH (22:59)
[2024-04-26] MEDS: MIRTAZAPINE 15 MG TABLET (FP) PO SCH (23:00)
[2024-04-27 08:35] LABS: POTASSIUM 4.2 mmol/L (3.5-5.1)
[2024-04-27 08:42] LABS: BLOOD UREA NITROGEN 28.3 mg/dL (7-18)
[2024-04-27 08:43] LABS: CALCIUM 8.6 mg/dL (8.5-10.1)
[2024-04-27 08:45] LABS: BASO % 0.2 % (0-2.0); CREATININE 1.2 mg/dL (0.55-1.3); EOS % 0.2 % (0-4.5); HEMATOCRIT 23.4 % (32.4-45.2); HEMOGLOBIN 7.1 GM/dL (10.7-15.3); LYMPH % 15.1 % (8-40); MCH 23.1 pg (25.7-33.7); MCHC 30.4 g/dl (32.0-36.0); MONO % 7.9 % (3.8-10.2); NEUT % 76.6 % (42.8-82.8); PLATELET COUNT 250 10^3/uL (134-434); RBC 3.07 M/mm3 (3.60-5.2); WHITE BLOOD COUNT 8.5 K/mm3 (4.0-10.0)
[2024-04-28 07:43] LABS: BASO % 0.7 % (0-2.0); EOS % 3.6 % (0-4.5); HEMATOCRIT 23.4 % (32.4-45.2); HEMOGLOBIN 7.1 GM/dL (10.7-15.3); LYMPH % 17.5 % (8-40); MCHC 30.4 g/dl (32.0-36.0); MEAN CELL VOLUME 75.6 fl (80-96); MEAN PLT VOLUME 7.8 fl (7.5-11.1); MONO % 9.3 % (3.8-10.2); NEUT % 68.9 % (42.8-82.8); PLATELET COUNT 249 10^3/uL (134-434); RBC 3.09 M/mm3 (3.60-5.2); RDW 20.9 % (11.6-15.6); WHITE BLOOD COUNT 10.6 K/mm3 (4.0-10.0)
[2024-04-28 08:08] LABS: ALBUMIN 2.7 g/dl (3.4-5.0); BLOOD UREA NITROGEN 30.9 mg/dL (7-18); CALCIUM 8.7 mg/dL (8.5-10.1)
[2024-04-28 08:11] LABS: CREATININE 1.3 mg/dL (0.55-1.3)
[2024-04-28 08:12] LABS: BILIRUBIN,TOTAL 0.6 mg/dL (0.2-1)
[2024-04-28] MEDS: METOPROLOL TARTRATE 5 MG/5 ML VIAL IVPUSH ONE (13:42)
[2024-04-28] MEDS: SODIUM CHLORIDE 0.9% 500 ML INFUS.BAG IV ONE (14:02)
[2024-04-28] MEDS: MIDODRINE HCL 5 MG TABLET PO ONE (14:05)
[2024-04-28] MEDS ORDERED: METOPROLOL TARTRATE 25 MG TABLET (FP) PO SCH (16:27)
[2024-04-28] MEDS ORDERED: DOCUSATE SODIUM 100 MG CAPSULE (FP) PO PRN (16:53)
[2024-04-28] MEDS ORDERED: MIDODRINE HCL 5 MG TABLET PO SCH (18:00)
[2024-04-28 21:41] VITALS: RESP 18
[2024-04-28] MEDS: METOPROLOL TARTRATE 25 MG TABLET (FP) PO SCH (22:00)
[2024-04-29 07:52] LABS: BASO % 0.5 % (0-2.0); HEMATOCRIT 23.9 % (32.4-45.2); HEMOGLOBIN 7.3 GM/dL (10.7-15.3); LYMPH % 12.2 % (8-40); MCHC 30.5 g/dl (32.0-36.0); MEAN CELL VOLUME 75.4 fl (80-96); MEAN PLT VOLUME 7.7 fl (7.5-11.1); MONO % 9.5 % (3.8-10.2); NEUT % 74.8 % (42.8-82.8); PLATELET COUNT 251 10^3/uL (134-434); RBC 3.17 M/mm3 (3.60-5.2); WHITE BLOOD COUNT 10.7 K/mm3 (4.0-10.0)
[2024-04-29 07:55] LABS: POTASSIUM 3.7 mmol/L (3.5-5.1)
[2024-04-29 07:56] LABS: POTASSIUM 3.7 mmol/L (3.5-5.1)
[2024-04-29 07:58] LABS: CALCIUM 8.8 mg/dL (8.5-10.1)
[2024-04-29 07:59] LABS: BLOOD UREA NITROGEN 27.4 mg/dL (7-18)
[2024-04-29 08:00] LABS: CALCIUM 8.7 mg/dL (8.5-10.1)
[2024-04-29 08:01] LABS: ALBUMIN 2.8 g/dl (3.4-5.0); BLOOD UREA NITROGEN 25.5 mg/dL (7-18)
[2024-04-29 08:04] LABS: BILIRUBIN,TOTAL 0.5 mg/dL (0.2-1); TOT PROT 6.2 g/dl (6.4-8.2)
[2024-04-29 14:10] VITALS: BP 111/56; PULSE 89; TEMP 97.6
== END 2024-04-29 14:53 | disposition home or self-care (01) | DRG 291 ==
LOC: JER 09:04 → JERBED 11:48 → J4W 16:35 → OBSVTOIN 04-27 12:41
PROVIDERS: ADMIT Internal Medicine; ATTEND Internal Medicine
DX: I11.0 Hypertensive heart disease with heart failure (principal); I50.23 Acute on chronic systolic (congestive) heart failure; J44.1 Chronic obstructive pulmonary disease with (acute) exacerbation; J96.11 Chronic respiratory failure with hypoxia; I48.0 Paroxysmal atrial fibrillation; I25.10 Atherosclerotic heart disease of native coronary artery without angina pectoris; R62.7 Adult failure to thrive; F41.8 Other specified anxiety disorders; Z95.1 Presence of aortocoronary bypass graft; Z95.2 Presence of prosthetic heart valve; Z95.810 Presence of automatic (implantable) cardiac defibrillator; Z68.22 Body mass index [BMI] 22.0-22.9, adult
CPT/HCPCS: 0241U-QW; 36415; 71045-TC-FY; 80048; 80053; 82272; 82728; 82803; 83540; 83550; 83735; 83880; 84484; 85025; 93005; 93010; 93306-TC; 94640; 97116-GP; 97161-GP; 99285-25; G0378

== ENCOUNTER 2024-05-14 15:51 | Inpatient (IN) | payer OTHER ==
[2024-05-14 17:35] LABS: EOS % 1.9 % (0-4.5); HEMOGLOBIN 7.5 GM/dL (10.7-15.3); LYMPH % 17.8 % (8-40); MCH 22.4 pg (25.7-33.7); MCHC 29.9 g/dl (32.0-36.0); MEAN CELL VOLUME 74.8 fl (80-96); MEAN PLT VOLUME 7.6 fl (7.5-11.1); MONO % 8.1 % (3.8-10.2); NEUT % 70.2 % (42.8-82.8); PLATELET COUNT 423 10^3/uL (134-434); RBC 3.34 M/mm3 (3.60-5.2); RDW 20.2 % (11.6-15.6); WHITE BLOOD COUNT 10.6 K/mm3 (4.0-10.0)
[2024-05-14 17:50] LABS: POTASSIUM 3.7 mmol/L (3.5-5.1)
[2024-05-14 17:52] LABS: CALCIUM 9.6 mg/dL (8.5-10.1); INR 1.37 (0.83-1.09); PROTHROMBIN TIME (PATIENT) 15.3 SEC (9.7-13.0)
[2024-05-14 17:53] LABS: ALBUMIN 3.4 g/dl (3.4-5.0); BLOOD UREA NITROGEN 28.8 mg/dL (7-18)
[2024-05-14 17:55] LABS: ACTIVATED PTT 30.6 SECONDS (25.2-36.5)
[2024-05-14 17:56] LABS: CREATININE 1.4 mg/dL (0.55-1.3)
[2024-05-14 17:57] LABS: BILIRUBIN,TOTAL 0.5 mg/dL (0.2-1)
[2024-05-14 17:58] LABS: TOT PROT 6.9 g/dl (6.4-8.2)
[2024-05-14] MEDS ORDERED: HEPARIN NA (PORCINE) 5,000 UNITS/ML 1ML VIAL ONE (21:32)
[2024-05-14] MEDS: HEPARIN NA (PORCINE) 5,000 UNITS/ML 1ML VIAL SQ SCH (21:48)
[2024-05-15 02:20] VITALS: BMI 20.5
[2024-05-15] MEDS: FUROSEMIDE 40 MG/4 ML INJECTABLE VIAL IVPUSH ONE (03:18)
[2024-05-15] MEDS: VENLAFAXINE HCL 75 MG E.R. CAPSULES PO SCH (09:40)
[2024-05-15] MEDS: APIXABAN 2.5 MG TABLET PO SCH (09:41)
[2024-05-15] MEDS: DULoxetine HCL 20 MG CAPSULE.DR PO SCH (09:41)
[2024-05-15] MEDS: METOPROLOL TARTRATE 25 MG TABLET (FP) PO SCH (09:42)
[2024-05-15] MEDS: FUROSEMIDE 40 MG/4 ML INJECTABLE VIAL IVPUSH SCH (09:43)
[2024-05-15 09:45] LABS: BASO % 1.3 % (0-2.0); EOS % 2.2 % (0-4.5); HEMATOCRIT 22.3 % (32.4-45.2); LYMPH % 14.7 % (8-40); MCH 22.1 pg (25.7-33.7); MEAN CELL VOLUME 73.7 fl (80-96); MEAN PLT VOLUME 7.3 fl (7.5-11.1); MONO % 7.8 % (3.8-10.2); PLATELET COUNT 358 10^3/uL (134-434); RBC 3.03 M/mm3 (3.60-5.2); RDW 20.3 % (11.6-15.6); WHITE BLOOD COUNT 7.4 K/mm3 (4.0-10.0)
[2024-05-15 09:58] LABS: HEMOGLOBIN 6.7 GM/dL (10.7-15.3)
[2024-05-15] MEDS ORDERED: FUROSEMIDE 20 MG TABLET (FP) PO SCH (10:00)
[2024-05-15] MEDS ORDERED: SACUBITRIL/VALSARTAN 24 MG-26 MG TABLET PO SCH (10:00)
[2024-05-15 10:03] LABS: POTASSIUM 3.8 mmol/L (3.5-5.1)
[2024-05-15 10:30] LABS: CALCIUM 9.2 mg/dL (8.5-10.1); MAGNESIUM 2.2 mg/dL (1.8-2.4)
[2024-05-15 10:31] LABS: BLOOD UREA NITROGEN 24.1 mg/dL (7-18)
[2024-05-15 10:33] LABS: CREATININE 1.2 mg/dL (0.55-1.3); PHOSPHOROUS 4.3 mg/dL (2.5-4.9)
[2024-05-15 10:34] LABS: BILIRUBIN,TOTAL 0.4 mg/dL (0.2-1)
[2024-05-15 10:35] LABS: TOT PROT 6.2 g/dl (6.4-8.2)
[2024-05-15] MEDS: FLUTICASONE/UMECLIDIN/VILANTER(200-62.5-25 TRELEGY ELLIPTA) INAHLER IH SCH (15:46)
[2024-05-15 20:19] LABS: BASO % 0.7 % (0-2.0); EOS % 1.6 % (0-4.5); HEMOGLOBIN 8.2 GM/dL (10.7-15.3); LYMPH % 13.9 % (8-40); MCH 24.2 pg (25.7-33.7); MCHC 31.7 g/dl (32.0-36.0); MEAN CELL VOLUME 76.3 fl (80-96); MEAN PLT VOLUME 7.6 fl (7.5-11.1); MONO % 8.3 % (3.8-10.2); NEUT % 75.5 % (42.8-82.8); PLATELET COUNT 316 10^3/uL (134-434); RBC 3.41 M/mm3 (3.60-5.2); RDW 20.8 % (11.6-15.6); WHITE BLOOD COUNT 9.8 K/mm3 (4.0-10.0)
[2024-05-15 20:52] LABS: ANISOCYTOSIS 2+; MACROCYTOSIS 0; OVALOCYTE 1+
[2024-05-15] MEDS: MIRTAZAPINE 15 MG TABLET (FP) PO SCH (21:47)
[2024-05-15] MEDS: PANTOPRAZOLE 40 MG TABLET PO SCH (21:47)
[2024-05-15] MEDS: POLYETHYLENE GLYCOL (HEALTHYLAX) 3350 17 GM PACKET PO SCH (21:48)
[2024-05-15] MEDS: ATORVASTATIN CA 20 MG TABLET (FP) PO SCH (21:48)
[2024-05-16] MEDS: FUROSEMIDE 40 MG/4 ML INJECTABLE VIAL IVPUSH ONE (02:35)
[2024-05-16] MEDS: ALBUTEROL SO4 0.083% IH SOL 2.5 MG/3 ML VIAL.NEB. NEB PRN (02:45)
[2024-05-16] MEDS ORDERED: FUROSEMIDE 40 MG/4 ML INJECTABLE VIAL IVPUSH SCH (10:00)
[2024-05-16] MEDS: IRON SUCROSE INJECTION 200 MG in SODIUM CHLORIDE 100 ML IVPB ONE (10:34)
[2024-05-16 11:03] LABS: HEMATOCRIT 29.3 % (32.4-45.2); HEMOGLOBIN 9.2 GM/dL (10.7-15.3); MCH 24.4 pg (25.7-33.7); MCHC 31.4 g/dl (32.0-36.0); MEAN CELL VOLUME 77.7 fl (80-96); MEAN PLT VOLUME 7.9 fl (7.5-11.1); PLATELET COUNT 319 10^3/uL (134-434); RBC 3.77 M/mm3 (3.60-5.2); RDW 20.9 % (11.6-15.6); WHITE BLOOD COUNT 14.1 K/mm3 (4.0-10.0)
[2024-05-16 11:11] LABS: POTASSIUM 3.8 mmol/L (3.5-5.1)
[2024-05-16 11:32] LABS: CALCIUM 9.4 mg/dL (8.5-10.1)
[2024-05-16 11:33] LABS: ALBUMIN 3.1 g/dl (3.4-5.0)
[2024-05-16 11:35] LABS: BILIRUBIN,TOTAL 0.7 mg/dL (0.2-1); CREATININE 1.4 mg/dL (0.55-1.3); TOT PROT 6.6 g/dl (6.4-8.2)
[2024-05-16] MEDS: FUROSEMIDE 40 MG/4 ML INJECTABLE VIAL IVPUSH SCH (15:10)
[2024-05-16] MEDS: FUROSEMIDE 20 MG TABLET (FP) PO SCH (17:18)
[2024-05-17] MEDS: METOPROLOL TARTRATE 25 MG TABLET (FP) PO SCH (09:55)
[2024-05-17 10:23] LABS: BASO % 0.8 % (0-2.0); EOS % 2.9 % (0-4.5); HEMATOCRIT 28.2 % (32.4-45.2); HEMOGLOBIN 8.9 GM/dL (10.7-15.3); LYMPH % 10.6 % (8-40); MCH 24.3 pg (25.7-33.7); MCHC 31.4 g/dl (32.0-36.0); MEAN CELL VOLUME 77.4 fl (80-96); MEAN PLT VOLUME 7.5 fl (7.5-11.1); MONO % 8.3 % (3.8-10.2); NEUT % 77.4 % (42.8-82.8); PLATELET COUNT 287 10^3/uL (134-434); RBC 3.65 M/mm3 (3.60-5.2)
[2024-05-17 10:38] LABS: POTASSIUM 3.1 mmol/L (3.5-5.1)
[2024-05-17 10:40] LABS: MAGNESIUM 1.8 mg/dL (1.8-2.4)
[2024-05-17 10:42] LABS: ALBUMIN 2.8 g/dl (3.4-5.0); BLOOD UREA NITROGEN 20.2 mg/dL (7-18); CALCIUM 8.9 mg/dL (8.5-10.1)
[2024-05-17 10:47] LABS: BILIRUBIN,TOTAL 0.6 mg/dL (0.2-1)
[2024-05-17] MEDS: POTASSIUM CHLORIDE ORAL LIQUID 20 MEQ/15 ML PO ONE ×2 (12:00→21:56)
[2024-05-18 09:21] VITALS: RESP 20; TEMP 98
[2024-05-18 11:05] LABS: BASO % 0.3 % (0-2.0); EOS % 1.8 % (0-4.5); HEMOGLOBIN 9.3 GM/dL (10.7-15.3); LYMPH % 8.3 % (8-40); MCH 24.9 pg (25.7-33.7); MCHC 32.1 g/dl (32.0-36.0); MEAN CELL VOLUME 77.6 fl (80-96); MEAN PLT VOLUME 7.8 fl (7.5-11.1); MONO % 6.3 % (3.8-10.2); NEUT % 83.3 % (42.8-82.8); PLATELET COUNT 269 10^3/uL (134-434); RBC 3.74 M/mm3 (3.60-5.2); RDW 21.9 % (11.6-15.6); WHITE BLOOD COUNT 10.6 K/mm3 (4.0-10.0)
[2024-05-18 12:19] LABS: POTASSIUM 3.8 mmol/L (3.5-5.1)
[2024-05-18 12:34] LABS: CALCIUM 9.3 mg/dL (8.5-10.1)
[2024-05-18 12:35] LABS: ALBUMIN 3.2 g/dl (3.4-5.0); BLOOD UREA NITROGEN 19.9 mg/dL (7-18); MAGNESIUM 1.8 mg/dL (1.8-2.4)
[2024-05-18 12:38] LABS: CREATININE 1.2 mg/dL (0.55-1.3)
[2024-05-18 12:39] LABS: BILIRUBIN,TOTAL 0.7 mg/dL (0.2-1)
[2024-05-18 12:40] LABS: TOT PROT 6.6 g/dl (6.4-8.2)
[2024-05-18 15:23] VITALS: BP 110/55; PULSE 83
== END 2024-05-18 15:03 | disposition home or self-care (01) | DRG 291 ==
LOC: JER 15:51 → JERBED 21:09 → OBSVTOIN 22:10 → J8W 23:00
PROVIDERS: ADMIT Internal Medicine; ATTEND Nurse Practitioner Family
PROC: 30233N1 Transfusion of Nonautologous Red Blood Cells into Peripheral Vein, Percutaneous Approach (ICD-10-PCS; principal; 2024-05-15)
DX: I11.0 Hypertensive heart disease with heart failure (principal); I50.33 Acute on chronic diastolic (congestive) heart failure; J44.9 Chronic obstructive pulmonary disease, unspecified; K59.00 Constipation, unspecified; M06.9 Rheumatoid arthritis, unspecified; E78.5 Hyperlipidemia, unspecified; I48.0 Paroxysmal atrial fibrillation; I25.10 Atherosclerotic heart disease of native coronary artery without angina pectoris; D50.9 Iron deficiency anemia, unspecified; F41.8 Other specified anxiety disorders; I25.2 Old myocardial infarction; Z95.2 Presence of prosthetic heart valve; Z99.81 Dependence on supplemental oxygen; Z95.810 Presence of automatic (implantable) cardiac defibrillator
CPT/HCPCS: 0241U-QW; 36415; 36430; 71045-TC-FY; 71250-TC; 80053; 82272; 82607; 82746; 82962; 83735; 83880; 84100; 84484; 85025; 85027; 85610; 85730; 86850; 86900; 86901; 86922; 93005; 93010; 94640; 94660; 99285-25; G0378; J1644; J1756; P9038; P9058

== ENCOUNTER 2024-07-07 07:57 | Inpatient (IN) | payer OTHER ==
[2024-07-07] MEDS ORDERED: ALBUTEROL SO4 2.5/IPRATROPIUM 0.5 INH SOL 3 ML VIAL.NEB. NEB ONE (08:10)
[2024-07-07] MEDS: ALBUTEROL SO4 2.5/IPRATROPIUM 0.5 INH SOL 3 ML VIAL.NEB. NEB ONE (08:24)
[2024-07-07] MEDS ORDERED: methylPREDNISolone NA SUCC 125 MG/2 ML VIAL ONE (08:38)
[2024-07-07 08:42] LABS: BASO % 0.7 % (0-2.0); EOS % 1.4 % (0-4.5); HEMATOCRIT 38.3 % (32.4-45.2); HEMOGLOBIN 11.2 GM/dL (10.7-15.3); LYMPH % 17.6 % (8-40); MCH 24.8 pg (25.7-33.7); MCHC 29.4 g/dl (32.0-36.0); MEAN CELL VOLUME 84.6 fl (80-96); MEAN PLT VOLUME 8.1 fl (7.5-11.1); MONO % 7.3 % (3.8-10.2); PLATELET COUNT 300 10^3/uL (134-434); RBC 4.53 M/mm3 (3.60-5.2); RDW 22.9 % (11.6-15.6); WHITE BLOOD COUNT 15.3 K/mm3 (4.0-10.0)
[2024-07-07 08:52] LABS: CALCIUM 8.7 mg/dL (8.5-10.1)
[2024-07-07 08:53] LABS: ALBUMIN 3.2 g/dl (3.4-5.0); BLOOD UREA NITROGEN 23.8 mg/dL (7-18)
[2024-07-07 08:56] LABS: CREATININE 1.2 mg/dL (0.55-1.3)
[2024-07-07 08:58] LABS: BILIRUBIN,TOTAL 0.5 mg/dL (0.2-1)
[2024-07-07 09:01] LABS: N-TERMINAL BNP 3497.2 pg/ml (5-450)
[2024-07-07] MEDS: methylPREDNISolone NA SUCC 125 MG/2 ML VIAL IVPUSH ONE (09:33)
[2024-07-07] MEDS ORDERED: FUROSEMIDE 40 MG/4 ML INJECTABLE VIAL ONE (09:51)
[2024-07-07] MEDS: FUROSEMIDE 40 MG/4 ML INJECTABLE VIAL IVPUSH ONE (09:55)
[2024-07-07 10:11] LABS: POTASSIUM 3.7 mmol/L (3.5-5.1)
[2024-07-07 10:13] LABS: BLOOD UREA NITROGEN 24.3 mg/dL (7-18); CALCIUM 8.7 mg/dL (8.5-10.1)
[2024-07-07 10:16] LABS: CREATININE 1.1 mg/dL (0.55-1.3)
[2024-07-07 11:09] LABS: ANISOCYTOSIS 3+; OVALOCYTE 1+
[2024-07-07] MEDS ORDERED: VANCOMYCIN 1 GM PREMIX (F) 1 GM/200 ML BAG ONE (11:31)
[2024-07-07] MEDS: VANCOMYCIN 1,000 MG in DEXTROSE 5%-WATER - 250 ML IVPB ONE (11:38)
[2024-07-07] MEDS ORDERED: PIPERACILLIN/TAZOB 4.5 GM 4.5 GM/100 ML BAG IVPB ONE (14:31)
[2024-07-07] MEDS: PIPERACILLIN/TAZOB 4.5 GM 4.5 GM in DEXTROSE 5%-WATER 100 ML IVPB ONE (14:32)
[2024-07-07] MEDS: ALBUTEROL SO4 2.5/IPRATROPIUM 0.5 INH SOL 3 ML VIAL.NEB. NEB SCH (16:17)
[2024-07-07] MEDS: MONTELUKAST NA 10 MG TABLET PO SCH (21:20)
[2024-07-07] MEDS: MIRTAZAPINE 15 MG TABLET (FP) PO SCH (21:20)
[2024-07-07] MEDS: ATORVASTATIN CA 20 MG TABLET (FP) PO SCH (21:20)
[2024-07-07] MEDS: APIXABAN 2.5 MG TABLET PO SCH (21:20)
[2024-07-07] MEDS ORDERED: MIRTAZAPINE 15 MG TABLET (FP) PO SCH (22:00)
[2024-07-08] MEDS ORDERED: ALBUTEROL SO4 2.5/IPRATROPIUM 0.5 INH SOL 3 ML VIAL.NEB. NEB ONE (05:39)
[2024-07-08 07:27] LABS: BASO % 0.3 % (0-2.0); EOS % 0.8 % (0-4.5); HEMATOCRIT 34.1 % (32.4-45.2); HEMOGLOBIN 10.6 GM/dL (10.7-15.3); LYMPH % 13.3 % (8-40); MCH 25.7 pg (25.7-33.7); MCHC 31.1 g/dl (32.0-36.0); MEAN CELL VOLUME 82.6 fl (80-96); MONO % 8.4 % (3.8-10.2); NEUT % 77.2 % (42.8-82.8); PLATELET COUNT 266 10^3/uL (134-434); RBC 4.13 M/mm3 (3.60-5.2); RDW 21.9 % (11.6-15.6); WHITE BLOOD COUNT 11.6 K/mm3 (4.0-10.0)
[2024-07-08 07:39] LABS: POTASSIUM 3.9 mmol/L (3.5-5.1)
[2024-07-08 07:44] LABS: BLOOD UREA NITROGEN 26.4 mg/dL (7-18); CALCIUM 9.2 mg/dL (8.5-10.1)
[2024-07-08] MEDS: DULoxetine HCL 20 MG CAPSULE.DR PO SCH (09:47)
[2024-07-08] MEDS: predniSONE 20 MG TABLET (UD) PO SCH (09:47)
[2024-07-08] MEDS: AZITHROMYCIN 250 MG TABLET PO SCH (09:47)
[2024-07-08] MEDS: DOCUSATE SODIUM 100 MG CAPSULE (FP) PO SCH (09:47)
[2024-07-08] MEDS: VENLAFAXINE HCL 75 MG E.R. CAPSULES PO SCH (09:47)
[2024-07-08] MEDS: EMPAGLIFLOZIN (JARDIANCE) 10 MG TABLET PO SCH (09:47)
[2024-07-08] MEDS ORDERED: VENLAFAXINE HCL 150 MG E.R. CAPSULE PO SCH ×2 (10:00)
[2024-07-08] MEDS ORDERED: DULoxetine HCL 20 MG CAPSULE.DR PO SCH (10:00)
[2024-07-08] MEDS: FLUTICASONE/UMECLIDIN/VILANTER(200-62.5-25 TRELEGY ELLIPTA) INAHLER IH SCH (11:30)
[2024-07-08] MEDS: FUROSEMIDE 40 MG/4 ML INJECTABLE VIAL IVPUSH SCH (12:26)
[2024-07-08] MEDS: metoPROLOL SUCCINATE 25 MG TAB.SR.24H (FP) PO SCH (17:15)
[2024-07-09] MEDS: EMPAGLIFLOZIN (JARDIANCE) 10 MG TABLET PO SCH (06:07)
[2024-07-09 07:41] LABS: BASO % 0.1 % (0-2.0); EOS % 0.8 % (0-4.5); HEMATOCRIT 29.6 % (32.4-45.2); HEMOGLOBIN 9.3 GM/dL (10.7-15.3); LYMPH % 15.7 % (8-40); MCH 25.6 pg (25.7-33.7); MCHC 31.3 g/dl (32.0-36.0); MEAN CELL VOLUME 81.7 fl (80-96); MEAN PLT VOLUME 7.7 fl (7.5-11.1); MONO % 7.1 % (3.8-10.2); NEUT % 76.3 % (42.8-82.8); PLATELET COUNT 227 10^3/uL (134-434); RBC 3.62 M/mm3 (3.60-5.2); RDW 22.1 % (11.6-15.6); WHITE BLOOD COUNT 11.8 K/mm3 (4.0-10.0)
[2024-07-09 07:55] LABS: POTASSIUM 3.8 mmol/L (3.5-5.1)
[2024-07-09 08:09] LABS: ALBUMIN 2.9 g/dl (3.4-5.0); BLOOD UREA NITROGEN 25.2 mg/dL (7-18); CALCIUM 9.1 mg/dL (8.5-10.1); MAGNESIUM 2.2 mg/dL (1.8-2.4)
[2024-07-09 08:12] LABS: CREATININE 0.8 mg/dL (0.55-1.3)
[2024-07-09 08:14] LABS: BILIRUBIN,TOTAL 0.5 mg/dL (0.2-1); TOT PROT 5.9 g/dl (6.4-8.2)
[2024-07-09] MEDS: FAMOTIDINE 20 MG TABLET PO SCH (09:17)
[2024-07-09] MEDS: methylPREDNISolone NA SUCC 40 MG/1 ML VIAL IVPUSH ONE (09:17)
[2024-07-09] MEDS ORDERED: FAMOTIDINE 20 MG TABLET PO SCH (22:00)
[2024-07-10 08:40] LABS: BASO % 0.2 % (0-2.0); EOS % 1.4 % (0-4.5); HEMATOCRIT 31.8 % (32.4-45.2); HEMOGLOBIN 9.7 GM/dL (10.7-15.3); LYMPH % 12.5 % (8-40); MCH 25.3 pg (25.7-33.7); MCHC 30.5 g/dl (32.0-36.0); MEAN PLT VOLUME 8.1 fl (7.5-11.1); NEUT % 79.9 % (42.8-82.8); PLATELET COUNT 223 10^3/uL (134-434); RBC 3.84 M/mm3 (3.60-5.2); RDW 22.2 % (11.6-15.6); WHITE BLOOD COUNT 14.1 K/mm3 (4.0-10.0)
[2024-07-10 09:01] LABS: POTASSIUM 3.4 mmol/L (3.5-5.1)
[2024-07-10 09:03] LABS: BLOOD UREA NITROGEN 28.7 mg/dL (7-18); CALCIUM 9.1 mg/dL (8.5-10.1)
[2024-07-10 09:04] LABS: MAGNESIUM 2.2 mg/dL (1.8-2.4)
[2024-07-10 09:07] LABS: CREATININE 0.9 mg/dL (0.55-1.3)
[2024-07-10 09:08] LABS: BILIRUBIN,TOTAL 0.5 mg/dL (0.2-1); TOT PROT 6.3 g/dl (6.4-8.2)
[2024-07-10] MEDS: POTASSIUM CHLORIDE ORAL LIQUID 20 MEQ/15 ML PO ONE (10:06)
[2024-07-10] MEDS: metoPROLOL SUCCINATE 25 MG TAB.SR.24H (FP) PO SCH (10:15)
[2024-07-10] MEDS: ALBUTEROL SO4 2.5/IPRATROPIUM 0.5 INH SOL 3 ML VIAL.NEB. NEB PRN (11:53)
[2024-07-10] MEDS: POTASSIUM CHLORIDE TABS 20 MEQ TABLET.ER (FP) PO SCH (21:55)
[2024-07-11 08:00] LABS: BASO % 0.5 % (0-2.0); EOS % 0.9 % (0-4.5); HEMATOCRIT 30.8 % (32.4-45.2); HEMOGLOBIN 9.5 GM/dL (10.7-15.3); LYMPH % 14.6 % (8-40); MCH 25.6 pg (25.7-33.7); MEAN CELL VOLUME 82.6 fl (80-96); MONO % 6.5 % (3.8-10.2); NEUT % 77.5 % (42.8-82.8); PLATELET COUNT 204 10^3/uL (134-434); RBC 3.72 M/mm3 (3.60-5.2); RDW 21.6 % (11.6-15.6); WHITE BLOOD COUNT 11.1 K/mm3 (4.0-10.0)
[2024-07-11 08:14] LABS: POTASSIUM 4.9 mmol/L (3.5-5.1)
[2024-07-11 08:18] LABS: ALBUMIN 2.9 g/dl (3.4-5.0); BLOOD UREA NITROGEN 37.2 mg/dL (7-18); CALCIUM 9.4 mg/dL (8.5-10.1); MAGNESIUM 2.3 mg/dL (1.8-2.4)
[2024-07-11 08:22] LABS: CREATININE 1.1 mg/dL (0.55-1.3)
[2024-07-11 08:23] LABS: BILIRUBIN,TOTAL 0.5 mg/dL (0.2-1); TOT PROT 6.1 g/dl (6.4-8.2)
[2024-07-11] MEDS: POLYETHYLENE GLYCOL (HEALTHYLAX) 3350 17 GM PACKET PO SCH (11:00)
[2024-07-11 11:59] LABS: ANISOCYTOSIS 2+; MACROCYTOSIS 0; OVALOCYTE 1+
[2024-07-11 19:56] LABS: HEMATOCRIT 30.5 % (32.4-45.2); HEMOGLOBIN 9.6 GM/dL (10.7-15.3); MCH 25.7 pg (25.7-33.7); MCHC 31.4 g/dl (32.0-36.0); MEAN CELL VOLUME 81.7 fl (80-96); MEAN PLT VOLUME 7.9 fl (7.5-11.1); PLATELET COUNT 198 10^3/uL (134-434); RBC 3.73 M/mm3 (3.60-5.2); RDW 21.6 % (11.6-15.6); WHITE BLOOD COUNT 9.2 K/mm3 (4.0-10.0)
[2024-07-11 20:15] LABS: POTASSIUM 5.3 mmol/L (3.5-5.1)
[2024-07-11 20:18] LABS: BLOOD UREA NITROGEN 43.8 mg/dL (7-18); CALCIUM 9.1 mg/dL (8.5-10.1)
[2024-07-11 20:22] LABS: CREATININE 1.5 mg/dL (0.55-1.3)
[2024-07-11 20:23] LABS: BILIRUBIN,TOTAL 0.5 mg/dL (0.2-1); TOT PROT 6.4 g/dl (6.4-8.2)
[2024-07-11 20:45] LABS: ANISOCYTOSIS 1+; MACROCYTOSIS 1+
[2024-07-12 12:11] LABS: BASO % 0.4 % (0-2.0); EOS % 1.6 % (0-4.5); HEMATOCRIT 30.9 % (32.4-45.2); HEMOGLOBIN 9.8 GM/dL (10.7-15.3); LYMPH % 15.3 % (8-40); MCH 25.9 pg (25.7-33.7); MCHC 31.7 g/dl (32.0-36.0); MEAN CELL VOLUME 81.6 fl (80-96); MONO % 6.5 % (3.8-10.2); NEUT % 76.2 % (42.8-82.8); PLATELET COUNT 205 10^3/uL (134-434); RBC 3.79 M/mm3 (3.60-5.2); RDW 21.3 % (11.6-15.6); WHITE BLOOD COUNT 9.3 K/mm3 (4.0-10.0)
[2024-07-12 12:28] LABS: POTASSIUM 4.1 mmol/L (3.5-5.1)
[2024-07-12 12:30] LABS: ALBUMIN 2.9 g/dl (3.4-5.0); CALCIUM 9.2 mg/dL (8.5-10.1)
[2024-07-12 12:31] LABS: BLOOD UREA NITROGEN 39.8 mg/dL (7-18); MAGNESIUM 2.1 mg/dL (1.8-2.4)
[2024-07-12 12:34] LABS: CREATININE 1.2 mg/dL (0.55-1.3)
[2024-07-12 12:35] LABS: BILIRUBIN,TOTAL 0.4 mg/dL (0.2-1); TOT PROT 6.2 g/dl (6.4-8.2)
[2024-07-12 16:18] LABS: HEMATOCRIT 31.1 % (32.4-45.2); HEMOGLOBIN 9.9 GM/dL (10.7-15.3); MCHC 31.7 g/dl (32.0-36.0); MEAN PLT VOLUME 8.1 fl (7.5-11.1); PLATELET COUNT 187 10^3/uL (134-434); RBC 3.79 M/mm3 (3.60-5.2); RDW 21.4 % (11.6-15.6); WHITE BLOOD COUNT 9.5 K/mm3 (4.0-10.0)
[2024-07-12 16:50] LABS: ANISOCYTOSIS 3+; MACROCYTOSIS 0; OVALOCYTE 2+
[2024-07-12 17:44] LABS: POTASSIUM 5.1 mmol/L (3.5-5.1)
[2024-07-12 17:48] LABS: CALCIUM 9.3 mg/dL (8.5-10.1)
[2024-07-12 17:49] LABS: BLOOD UREA NITROGEN 43.3 mg/dL (7-18); MAGNESIUM 2.1 mg/dL (1.8-2.4)
[2024-07-12 17:52] LABS: CREATININE 1.4 mg/dL (0.55-1.3)
[2024-07-12 17:53] LABS: BILIRUBIN,TOTAL 0.4 mg/dL (0.2-1); TOT PROT 6.4 g/dl (6.4-8.2)
[2024-07-12] MEDS: CALCIUM CARBONATE 650 MG TABLET PO PRN (20:48)
[2024-07-13 15:37] VITALS: BMI 20.3
[2024-07-14 08:36] LABS: HEMATOCRIT 33.5 % (32.4-45.2); HEMOGLOBIN 10.4 GM/dL (10.7-15.3); MCH 25.9 pg (25.7-33.7); MEAN CELL VOLUME 83.5 fl (80-96); MEAN PLT VOLUME 8.3 fl (7.5-11.1); PLATELET COUNT 211 10^3/uL (134-434); RBC 4.01 M/mm3 (3.60-5.2); RDW 21.3 % (11.6-15.6); WHITE BLOOD COUNT 10.7 K/mm3 (4.0-10.0)
[2024-07-14 09:03] LABS: POTASSIUM 5.4 mmol/L (3.5-5.1)
[2024-07-14 09:13] LABS: CALCIUM 9.4 mg/dL (8.5-10.1)
[2024-07-14 09:14] LABS: ALBUMIN 2.9 g/dl (3.4-5.0); BLOOD UREA NITROGEN 48.2 mg/dL (7-18); MAGNESIUM 2.5 mg/dL (1.8-2.4)
[2024-07-14 09:17] LABS: CREATININE 1.3 mg/dL (0.55-1.3); PHOSPHOROUS 4.7 mg/dL (2.5-4.9)
[2024-07-14 09:18] LABS: BILIRUBIN,TOTAL 0.3 mg/dL (0.2-1)
[2024-07-14 09:19] LABS: TOT PROT 6.2 g/dl (6.4-8.2)
[2024-07-14] MEDS: SODIUM ZIRCONIUM CYCLOSILICATE (LOKELMA) 5 GM PACKET PO ONE (13:46)
[2024-07-14] MEDS ORDERED: CALCIUM CARBONATE 650 MG TABLET PO PRN (14:32)
[2024-07-14] MEDS ORDERED: ALBUTEROL SO4 2.5/IPRATROPIUM 0.5 INH SOL 3 ML VIAL.NEB. NEB PRN (14:32)
[2024-07-14] MEDS: metoPROLOL SUCCINATE 25 MG TAB.SR.24H (FP) PO SCH (21:30)
[2024-07-14] MEDS: POTASSIUM CHLORIDE TABS 20 MEQ TABLET.ER (FP) PO SCH (21:30)
[2024-07-14] MEDS: ATORVASTATIN CA 20 MG TABLET (FP) PO SCH (21:31)
[2024-07-14] MEDS: APIXABAN 2.5 MG TABLET PO SCH (21:31)
[2024-07-14] MEDS: MIRTAZAPINE 15 MG TABLET (FP) PO SCH (21:31)
[2024-07-14] MEDS: MONTELUKAST NA 10 MG TABLET PO SCH (21:31)
[2024-07-15] MEDS: EMPAGLIFLOZIN (JARDIANCE) 10 MG TABLET PO SCH (08:22)
[2024-07-15 09:07] LABS: BASO % 0.4 % (0-2.0); EOS % 1.8 % (0-4.5); HEMATOCRIT 32.5 % (32.4-45.2); HEMOGLOBIN 10.3 GM/dL (10.7-15.3); LYMPH % 14.2 % (8-40); MCH 26.1 pg (25.7-33.7); MCHC 31.8 g/dl (32.0-36.0); MEAN CELL VOLUME 82.3 fl (80-96); MEAN PLT VOLUME 8.1 fl (7.5-11.1); MONO % 8.5 % (3.8-10.2); NEUT % 75.1 % (42.8-82.8); PLATELET COUNT 216 10^3/uL (134-434); RBC 3.95 M/mm3 (3.60-5.2); RDW 21.3 % (11.6-15.6); WHITE BLOOD COUNT 10.6 K/mm3 (4.0-10.0)
[2024-07-15 09:22] LABS: POTASSIUM 4.7 mmol/L (3.5-5.1)
[2024-07-15 09:28] LABS: BLOOD UREA NITROGEN 32.6 mg/dL (7-18); CALCIUM 8.7 mg/dL (8.5-10.1); MAGNESIUM 2.3 mg/dL (1.8-2.4)
[2024-07-15] MEDS: DULoxetine HCL 20 MG CAPSULE.DR PO SCH (10:08)
[2024-07-15] MEDS: POLYETHYLENE GLYCOL (HEALTHYLAX) 3350 17 GM PACKET PO SCH (10:08)
[2024-07-15] MEDS: VENLAFAXINE HCL 75 MG E.R. CAPSULES PO SCH (10:09)
[2024-07-15] MEDS: FAMOTIDINE 20 MG TABLET PO SCH (10:09)
[2024-07-15] MEDS: FUROSEMIDE 40 MG/4 ML INJECTABLE VIAL IVPUSH SCH (10:09)
[2024-07-15] MEDS: DOCUSATE SODIUM 100 MG CAPSULE (FP) PO SCH (10:09)
[2024-07-15] MEDS: FLUTICASONE/UMECLIDIN/VILANTER(200-62.5-25 TRELEGY ELLIPTA) INAHLER IH SCH (10:10)
[2024-07-15 10:30] LABS: ANISOCYTOSIS 1+
[2024-07-16 10:36] VITALS: RESP 20
[2024-07-16 14:41] VITALS: BP 124/82; PULSE 61; TEMP 97.7
== END 2024-07-16 15:39 | disposition home health service (06) | DRG 291 ==
LOC: JER 07:57 → JERBED 11:23 → OBSVTOIN 12:00 → J4W 15:22 → J8W 07-14 14:14
PROVIDERS: ADMIT Internal Medicine; ATTEND Internal Medicine
DX: I11.0 Hypertensive heart disease with heart failure (principal); I50.43 Acute on chronic combined systolic (congestive) and diastolic (congestive) heart failure; J96.01 Acute respiratory failure with hypoxia; E44.0 Moderate protein-calorie malnutrition; J44.1 Chronic obstructive pulmonary disease with (acute) exacerbation; J96.11 Chronic respiratory failure with hypoxia; Z68.1 Body mass index [BMI] 19.9 or less, adult; R64 Cachexia; E78.5 Hyperlipidemia, unspecified; I48.91 Unspecified atrial fibrillation; Z95.1 Presence of aortocoronary bypass graft; R62.7 Adult failure to thrive
CPT/HCPCS: 0241U-QW; 36415; 71045-TC-FY; 80048; 80053; 82962; 83735; 83880; 84100; 84484; 85025; 85027; 93005; 93010; 94010; 94640; 97116-GP; 97161-GP; 99291; G0378

== ENCOUNTER 2024-08-03 14:57 | Inpatient (IN) | payer OTHER ==
[2024-08-03] MEDS ORDERED: ALBUTEROL SO4 2.5/IPRATROPIUM 0.5 INH SOL 3 ML VIAL.NEB. NEB ONE (15:45)
[2024-08-03] MEDS: ALBUTEROL SO4 2.5/IPRATROPIUM 0.5 INH SOL 3 ML VIAL.NEB. NEB ONE (15:48)
[2024-08-03 15:53] LABS: HEMATOCRIT 28.1 % (32.4-45.2); HEMOGLOBIN 9.2 G/dL (10.7-15.3); MCH 27.4 pg (25.7-33.7); MCHC 32.8 g/dl (32.0-36.0); MEAN CELL VOLUME 83.6 fl (80-96); MEAN PLT VOLUME 11.5 fl (7.5-11.1); PLATELET COUNT 123.4 10^3/uL (134-434); RBC 3.36 10^6/uL (3.60-5.2); RDW 19.8 % (11.6-15.6); WHITE BLOOD COUNT 19.3 10^3/uL (4.0-10.8)
[2024-08-03 15:59] LABS: INR 1.32 (0.83-1.09); PROTHROMBIN TIME (PATIENT) 14.9 SEC (9.7-13.0)
[2024-08-03 16:02] LABS: ACTIVATED PTT 23.9 SECONDS (25.2-36.5)
[2024-08-03] MEDS ORDERED: PIPERACILLIN/TAZOBACTAM 4.5 GM VIAL IVPB ONE (16:21)
[2024-08-03 16:24] LABS: ALBUMIN 2.9 g/dl (3.4-5.0); ALK PHOS 67 U/L (45-117); ANION GAP 9 mmol/L (4-13); BILIRUBIN,TOTAL 0.4 mg/dl (0.2-1); CALCIUM 8.2 mg/dl (8.5-10.1); CHLORIDE 105 mmol/L (98-107); CO2 27 mmol/L (21-32); CREATININE 1.7 mg/dl (0.6-1.3); GLUCOSE,RANDOM 141 mg/dl (74-106); MAGNESIUM 2.1 mg/dL (1.8-2.4); POTASSIUM 4.8 mmol/L (3.5-5.1); SGOT/AST 16 U/L (15-37); SGPT/ALT 21 U/L (7-52); SODIUM 141 mmol/L (136-145); TOT PROT 5.4 g/dl (6.4-8.2)
[2024-08-03] MEDS: PIPERACILLIN/TAZOB 4.5 GM 4.5 GM in DEXTROSE 5%-WATER 100 ML IVPB ONE (16:31)
[2024-08-03 17:02] LABS: PLATELET ESTIMATE SLT DECREASE
[2024-08-03 17:59] LABS: N-TERMINAL BNP 6783.5 pg/ml (5-450)
[2024-08-03] MEDS: ALBUTEROL SO4 2.5/IPRATROPIUM 0.5 INH SOL 3 ML VIAL.NEB. NEB SCH (21:14)
[2024-08-03] MEDS: ATORVASTATIN CA 20 MG TABLET (FP) PO SCH (21:14)
[2024-08-03] MEDS: MONTELUKAST NA 10 MG TABLET PO SCH (21:14)
[2024-08-03] MEDS: MIRTAZAPINE 15 MG TABLET (FP) PO SCH (21:14)
[2024-08-03] MEDS: APIXABAN 2.5 MG TABLET PO SCH (21:14)
[2024-08-03] MEDS: SODIUM CHLORIDE 250 ML IV STA (21:25)
[2024-08-03 21:49] LABS: EPITHELIAL CELLS 0-5 /hpf
[2024-08-03] MEDS: metoPROLOL SUCCINATE 25 MG TAB.SR.24H (FP) PO SCH (22:01)
[2024-08-03] MEDS: MIDODRINE HCL 5 MG TABLET PO ONE (23:57)
[2024-08-04] MEDS: PIPERACILLIN/TAZOB 4.5 GM 4.5 GM in DEXTROSE 5%-WATER 100 ML IVPB SCH (02:59)
[2024-08-04] MEDS ORDERED: PIPERACILLIN/TAZOB 4.5 GM 4.5 GM in DEXTROSE 5%-WATER 100 ML IVPB SCH (04:00)
[2024-08-04] MEDS: ACETAMINOPHEN 325 MG TABLET (FP) PO PRN (06:50)
[2024-08-04 09:28] LABS: BILIRUBIN,TOTAL 0.5 mg/dl (0.2-1); CALCIUM 8.5 mg/dl (8.5-10.1); CREATININE 1.6 mg/dl (0.6-1.3); MAGNESIUM 2.2 mg/dL (1.8-2.4); PHOSPHOROUS 4.1 (2.5-4.9); POTASSIUM 4.1 mmol/L (3.5-5.1); TOT PROT 5.6 g/dl (6.4-8.2)
[2024-08-04 09:34] LABS: BASO % 0.3 % (0-2.0); EOS % 1.1 % (0-4.5); HEMATOCRIT 27.3 % (32.4-45.2); HEMOGLOBIN 8.4 GM/dL (10.7-15.3); LYMPH % 8.4 % (8-40); MCH 25.2 pg (25.7-33.7); MCHC 30.8 g/dl (32.0-36.0); MEAN CELL VOLUME 81.7 fl (80-96); MEAN PLT VOLUME 9.5 fl (7.5-11.1); MONO % 7.2 % (3.8-10.2); PLATELET COUNT 106 10^3/uL (134-434); RBC 3.35 M/mm3 (3.60-5.2); RDW 20.8 % (11.6-15.6); WHITE BLOOD COUNT 12.8 K/mm3 (4.0-10.0)
[2024-08-04] MEDS: DULoxetine HCL 20 MG CAPSULE.DR PO SCH (10:29)
[2024-08-04] MEDS: EMPAGLIFLOZIN (JARDIANCE) 10 MG TABLET PO SCH (10:30)
[2024-08-04] MEDS: VENLAFAXINE HCL 75 MG E.R. CAPSULES PO SCH (11:30)
[2024-08-04 13:44] LABS: ANISOCYTOSIS 1+; MACROCYTOSIS 0
[2024-08-04] MEDS: predniSONE 20 MG TABLET (UD) PO SCH (18:42)
[2024-08-04 21:11] LABS: EPITHELIAL CELLS 0-5 /hpf
[2024-08-05] MEDS: PIPERACILLIN/TAZOB 2.25 GM 2.25 GM in DEXTROSE 5%-WATER - 50 ML IVPB SCH (03:00)
[2024-08-05 13:27] LABS: HEMATOCRIT 25.7 % (32.4-45.2); HEMOGLOBIN 8.4 G/dL (10.7-15.3); MCH 26.9 pg (25.7-33.7); MCHC 32.7 g/dl (32.0-36.0); MEAN CELL VOLUME 82.3 fl (80-96); MEAN PLT VOLUME 10.7 fl (7.5-11.1); PLATELET COUNT 121.1 10^3/uL (134-434); RBC 3.12 10^6/uL (3.60-5.2); RDW 19.5 % (11.6-15.6); WHITE BLOOD COUNT 13.6 10^3/uL (4.0-10.8)
[2024-08-05 13:43] LABS: ANISOCYTOSIS 1+; TARGET CELLS FEW
[2024-08-05 14:00] LABS: ALBUMIN 2.8 g/dl (3.4-5.0); BILIRUBIN,TOTAL 0.3 mg/dl (0.2-1); CALCIUM 8.7 mg/dl (8.5-10.1); CREATININE 1.3 mg/dl (0.6-1.3); POTASSIUM 4.6 mmol/L (3.5-5.1); TOT PROT 5.5 g/dl (6.4-8.2)
[2024-08-05] MEDS: SACUBITRIL/VALSARTAN 24 MG-26 MG TABLET PO SCH (14:07)
[2024-08-05] MEDS: POLYETHYLENE GLYCOL (HEALTHYLAX) 3350 17 GM PACKET PO SCH (16:19)
[2024-08-06 08:17] LABS: HEMATOCRIT 24.3 % (32.4-45.2); HEMOGLOBIN 7.8 G/dL (10.7-15.3); MCH 26.4 pg (25.7-33.7); MCHC 32.1 g/dl (32.0-36.0); MEAN CELL VOLUME 82.2 fl (80-96); MEAN PLT VOLUME 10.1 fl (7.5-11.1); PLATELET COUNT 155.4 10^3/uL (134-434); RBC 2.96 10^6/uL (3.60-5.2); RDW 19.4 % (11.6-15.6)
[2024-08-06 08:34] LABS: ALBUMIN 2.7 g/dl (3.4-5.0); BILIRUBIN,TOTAL 0.4 mg/dl (0.2-1); CALCIUM 8.7 mg/dl (8.5-10.1); CREATININE 1.1 mg/dl (0.6-1.3); TOT PROT 5.3 g/dl (6.4-8.2)
[2024-08-08 09:18] LABS: ALBUMIN 2.8 g/dl (3.4-5.0); BILIRUBIN,TOTAL 0.3 mg/dl (0.2-1); CALCIUM 8.8 mg/dl (8.5-10.1); POTASSIUM 4.5 mmol/L (3.5-5.1); TOT PROT 5.5 g/dl (6.4-8.2)
[2024-08-08 10:39] LABS: BASO % 0.4 % (0-2.0); EOS % 0.7 % (0-4.5); HEMATOCRIT 25.6 % (32.4-45.2); HEMOGLOBIN 7.9 GM/dL (10.7-15.3); LYMPH % 15.2 % (8-40); MCH 25.2 pg (25.7-33.7); MCHC 30.7 g/dl (32.0-36.0); MEAN PLT VOLUME 8.2 fl (7.5-11.1); MONO % 10.5 % (3.8-10.2); NEUT % 73.2 % (42.8-82.8); PLATELET COUNT 202 10^3/uL (134-434); RBC 3.13 M/mm3 (3.60-5.2); RDW 20.1 % (11.6-15.6); WHITE BLOOD COUNT 7.9 K/mm3 (4.0-10.0)
[2024-08-09] MEDS: AMOX TR/POTASSIUM CLAVULANATE 250 MG/5 ML BOTTLE PO SCH (09:23)
[2024-08-10] MEDS ORDERED: REFRIGERATED ANITBIOTICS ONE ×2 (08:29→18:11)
[2024-08-10 16:44] VITALS: BMI 21.1
[2024-08-11 13:42] LABS: HEMATOCRIT 28.9 % (34.1-44.9); HEMOGLOBIN 8.5 g/dL (11.2-15.7); MCHC 29.4 g/dl (32.2-35.5); MEAN PLT VOLUME 10.1 fl (9.4-12.3); PLATELET COUNT # 304 x10^3/uL (182-369); RDW 18.3 % (12.5-17.0)
[2024-08-11] MEDS: ALBUTEROL SO4 2.5/IPRATROPIUM 0.5 INH SOL 3 ML VIAL.NEB. NEB SCH (13:48)
[2024-08-11 14:08] LABS: CREATININE 0.8 mg/dl (0.6-1.3); MAGNESIUM 2.2 mg/dL (1.8-2.4); PHOSPHOROUS 2.5 (2.5-4.9); POTASSIUM 4.2 mmol/L (3.5-5.1)
[2024-08-12 19:08] VITALS: BP 96/45; PULSE 77; RESP 17; TEMP 98.1
== END 2024-08-12 19:45 | DRG 190 ==
LOC: FER 14:57 → FM/S 16:58
PROVIDERS: ADMIT Internal Medicine; ATTEND Internal Medicine
DX: J44.0 Chronic obstructive pulmonary disease with (acute) lower respiratory infection (principal); E43 Unspecified severe protein-calorie malnutrition; J18.9 Pneumonia, unspecified organism; I50.40 Unspecified combined systolic (congestive) and diastolic (congestive) heart failure; N17.9 Acute kidney failure, unspecified; I13.0 Hypertensive heart and chronic kidney disease with heart failure and stage 1 through stage 4 chronic kidney disease, or unspecified chronic kidney disease; N18.30 Chronic kidney disease, stage 3 unspecified; J44.1 Chronic obstructive pulmonary disease with (acute) exacerbation; M19.011 Primary osteoarthritis, right shoulder; Z68.21 Body mass index [BMI] 21.0-21.9, adult
CPT/HCPCS: 0241U-QW; 36415; 71045-TC-FY; 73030-TC-RT-FY; 74176-TC; 76775-TC; 80048; 80053; 81003; 81015; 83735; 83880; 84100; 84484; 85025; 85027; 85610; 85730; 86850; 86900; 86901; 87086; 87635; 93005; 94640; 97116-GP; 97162-GP; 99285-25